=== PATIENT | male | born 1945 | race Caucasian/White ===

== ENCOUNTER 2017-03-15 09:17 | Inpatient (IN) | payer OTHER, MEDICARE ==
[~2017-03-15] VITALS: Ht 182.9 cm; Wt 121.6 kg
[~2017-03-15 09:17] MED LIST: ANTIVERT 25MG #1 PAC PO; AVAPRO 150MG150 MG PO; CRESTOR 10MG10 MG PO; CRESTOR40 M1 PO; DILTIAZEM HCL120 M2 PO; HYDRODIURIL 2525 MG PO; NOVOLOG MI300 UNITS/; PANTOPRAZOLE SO40 MG PO; PERCOCET 325 MG1 TA2 PO; SYNTHROID0.175 MG PO; VICTOZA6 MG/ML SC; ZOFRAN4 M1 SL; ZYRTEC ALLERGY10 MG PO
--- NOTE | 2017-03-15 09:36 | ED AMS/SEIZURE/WEAK/DIZZY ---
History of Present Illness General Chief Complaint: General Adult Stated Complaint: BIBA GEN WEAKNESS Source: patient, family Exam Limitations: no limitations Vital Signs & Intake/Output Vital Signs & Intake/Output Vital Signs Date Time Temp Pulse Resp B/P B/P Pulse O2 O2 Flow FiO2 Mean Ox Delivery Rate 03/15 1447 97.2 77 14 166/78 96 Room Air 03/15 0930 Room Air 03/15 0922 98.1 80 12 181/87 98 Room Air Allergies Coded Allergies: Penicillins (Severe, ANAPHYLAXIS 04/10/15) Reconcile Medications Aspirin (Ecotrin*) 81 MG TABLET.DR 1 TAB PO DAILY HEART/BLOOD (Reported) Azilsartan Med/Chlorthalidone (Edarbyclor 40-25 MG Tablet) 40 MG-25 MG TABLET 1 TAB PO DAILY BP (Reported) Diltiazem HCl (Diltiazem 24HR ER) 240 MG CAP.ER.24H 1 CAP PO DAILY HEART/BP ( Reported) Duloxetine HCl (Cymbalta) 60 MG CAPSULE.DR 1 CAP PO DAILY MENTAL HEALTH ( Reported) Ibuprofen 800 MG TABLET 1 TAB PO PRN PAIN/INFLAMMATION (Reported) Insulin NPL/Insulin Lispro (Humalog Mix 75-25 Kwikpen) 100 UNIT/ML (75-25) INSULN.PEN DM (Reported) Levothyroxine Sodium (Synthroid) 112 MCG TABLET 2 TAB PO DAILY THYROID ( Reported) Methadone HCl 5 MG/5 ML SOLUTION 105 MG PO DAILY CHRONIC PAIN (Reported) Naproxen Sodium (Aleve) 220 MG CAPSULE 1 CAP PO PRN PAIN/INFLAMMATION ( Reported) Pantoprazole Sodium 40 MG TABLET.DR 1 TAB PO DAILY GI (Reported) Paroxetine HCl 20 MG TABLET 1.5 TAB PO DAILY MENTAL HEALTH (Reported) Pravastatin Sodium 40 MG TABLET 1 TAB PO QPM CHOLESTEROL (Reported) Triage Note: 71 YEAR OLD MALE TO ER VIA AMBULANCE FROM HIS HOME WITH COMPLAINTS OF AMS , FEELING LOOPY FOR THE PAST 2 DAYS. ON ARRVAL PT ALERT AND ORIENTED , COMPLAINS OF JUST FEELING WEAK, DENIES N/V/D OR FEVERS, PT FS 232, ON EMS ARRIVAL PT O2 SAT 93 % ON RA, WAS PLACED ON 2L VIA NC FOR COMFORT AND O2 SAT 97 %. Triage Nurses Notes Reviewed? yes Onset: Gradual Duration: day(s): Timing: recent history Injury Environment: home Severity: moderate HPI: 71YO male with hx of DM, HTN BIBA to ED complaining of feeling "loopy"/ confused at home for the past 2 days. Patient states that symptoms started 2 days ago, he was feeling nauseous and ill. Patient was also having difficulty speaking, but visibly could not get the words out, was taking longer to think and felt his focus was off. Patient also complaining of generalized weakness. reports that patient has been taking his Synthroid however has been refusing to take other medications. Patient has been eating and drinking however he has not eaten anything this morning. Patient does admit to intermittent dizziness and presyncope. Patient denies chest pain, abdominal pain, dyspnea, vomiting, diarrhea. (Isabella Ross) Past History Travel History Traveled to [place] past 21 day No Medical History Any Pertinent Medical History? 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 No (Isabella Ross) Review of Systems Review of Systems Constitutional: Reports: see HPI. EENTM: Reports: no symptoms. Respiratory: Reports: no symptoms. Cardiovascular: Reports: no symptoms. GI: Reports: see HPI. Genitourinary: Reports: no symptoms. Musculoskeletal: Reports: no symptoms. Skin: Reports: no symptoms. Neurological/Psychological: Reports: see HPI. Hematologic/Endocrine: Reports: no symptoms. Immunologic/Allergic: Reports: no symptoms. All Other Systems: Reviewed and Negative (Isabella Ross) Physical Exam Physical Exam General Appearance: well developed/nourished, no apparent distress, alert, awake Head: atraumatic, normal appearance Eyes: Bilateral: normal appearance, PERRL, EOMI. 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 Yes CVA/TIA Diagnosis No Sepsis Present: No Sepsis Focused Exam Completed? No (Birgit SCHWARTZ,Isabella Chu) Progress Differential Diagnosis: arrythmia, alcohol intoxication, anemia, benign positional vertigo, CVA/stroke, dehydration, drug intoxication, encephalitis, electrolyte imbalance, hypoglycemia, hypoxia, intracranial Hem., intracranial mass/tumor, pneumonia, sepsis, UTI/pyelo Plan of Care: Orders Procedure Date/time Status Regular Diet 03/15 D Active Patient Data 03/15 1510 Active AMMONIA 03/15 1305 Complete RAPID VIRAL INFLUENZA A 03/15 1131 Complete MAGNESIUM 03/15 1030 Complete URINE DRUG SCREEN FOR ER ONLY 03/15 0936 Complete URINALYSIS 03/15 0936 Complete TROPONIN LEVEL 03/15 0936 Complete LACTIC ACID 03/15 0936 Complete COMPREHENSIVE METABOLIC PANEL 03/15 0936 Complete CBC WITHOUT DIFFERENTIAL 03/15 0936 Complete EKG 03/15 0936 Active Laboratory Tests 03/15/17 1312: Ammonia < 9 L 03/15/17 1236: Lactic Acid Cancelled 03/15/17 1037: Urine Opiates Screen < 100.00, Methadone Screen > 735 H, Barbiturate Screen < 60, Ur Phencyclidine Scrn 7.80, Amphetamines Screen < 100, U Benzodiazepines Scrn < 85, Urine Cocaine Screen < 50, Urine Cannabis Screen < 5.00, Urine Color YEL, Urine Clarity CLEAR, Urine pH 6.0, Ur Specific [place] >= 1.030, Urine Protein 100 H, Urine Ketones 15 H, Urine Nitrite NEG, Urine Bilirubin NEG, Urine Urobilinogen 2.0 H, Ur Leukocyte Esterase NEG, Ur Microscopic SEDIMENT EXAMINED, Urine RBC 3-5, Urine WBC 1-3 H, Ur Epithelial Cells FEW, Urine Mucus FEW, Urine Hemoglobin MOD H, Urine Glucose NEG 03/15/17 1030: Anion Gap 14, Estimated GFR > 60, BUN/Creatinine Ratio 21.0, Glucose 274 H, Lactic Acid 1.3, Calcium 8.2 L, Magnesium 1.7, Total Bilirubin 1.0, AST 120 H, ALT 176 H, Alkaline Phosphatase 163 H, Troponin I 0.06, Total Protein 7.2, Albumin 4.0, Globulin 3.2, Albumin/Globulin Ratio 1.3 03/15/17 0951: Magnesium Cancelled 03/15/17 0936: CBC w Diff NO MAN DIFF REQ, RBC 4.70, MCV 90.5, MCH 30.4, MCHC 33.6, RDW 13.2, MPV 8.3, Gran % 78.7 H, Lymphocytes % 10.2 L, Monocytes % 10.7 H, Eosinophils % 0.1, Basophils % 0.3, Absolute Granulocytes 5.0, Absolute Lymphocytes 0.6 L, Absolute Monocytes 0.7 H, Absolute Eosinophils 0, Absolute Basophils 0 Microbiology 03/15 1140 NASOPHARYN: Influenza Virus A & B Rapid Smear - COMP Patient's brought in his home methadone dose. Bottle read "give dose on 03/15". Patient given his home methadone dose here in the emergency department. Patient has elevated liver enzymes compared to prior labs, will obtain an ammonia level. Ammonia levels within normal limits. Patient is requiring assistance here in the emergency room for ambulation, has unsteady gait with ambulation. Patient was seen and evaluated by Dr. Fernandez. Patient has memory deficit, cannot recall that he had CT scan and chest x-ray performed today in the ER. Family feel that the patient's mental status is changed from his baseline. This patient is not safe to go home at this time. Discussed this patient with Dr. Gupta regarding EKG changes (inverted p waves) . He recommends cardiology consult tomorrow with Dr. Garrison. SPoke with hospitalist, . Patient to be admitted regarding his delerium, EKG changes, and gait instability. The patient's family agree with this plan. Discussed this patient with case management. Diagnostic Imaging: Viewed by Me: Radiology Read, CT Scan. Discussed w/RAD: Radiology Read, CT Scan. Radiology Impression: PATIENT: MIGUEL ANGEL CARRERA PRESENT AGE: 71 PATIENT ACCOUNT NO: [id number] : 46 LOCATION: [facility] ORDERING PHYSICIAN: Isabella SCHWARTZ SERVICE DATE: 03/15/17 EXAM TYPE: CAT - CT HEAD WO IV CONTRAST EXAMINATION: CT HEAD WITHOUT CONTRAST CLINICAL INFORMATION: Altered mental status. Confusion. COMPARISON: 06/13/15. TECHNIQUE: Contiguous axial imaging was performed from the skull base to vertex without intravenous administration of contrast. DLP: 618.71 mGy-cm FINDINGS: There is stable appearance of mild diffuse cerebral atrophy with prominence of the lateral ventricles and cortical sulci. There is no evidence of acute intracranial hemorrhage or territorial infarction. No abnormal mass effect or midline shift is seen. Allison to white matter differentiation is well preserved. No extra-axial fluid collections are identified. The ventricles are normal in size. There is no abnormal attenuation within the brain parenchyma. The osseous structures and soft tissues are normal. The mastoid air cells and visualized portions of the paranasal sinuses are well aerated. IMPRESSION: No acute intracranial pathology. DICTATED BY: Ayde Talbot MD DATE/TIME DICTATED:05/27 DEMOLITION SPECIALIST:STEPHANY DATE/TIME TRANSCRIBED:03/15/171054 CONFIDENTIAL, DO NOT COPY WITHOUT APPROPRIATE AUTHORIZATION. <Electronically signed in Other Vendor System> SIGNED BY: Ayde Talbot MD 03/15/17 1103 CXR Impression: PATIENT: MIGUEL ANGEL CARRERA PRESENT AGE: 71 PATIENT ACCOUNT NO: [id number] : 46 LOCATION: [facility] ORDERING PHYSICIAN: Isabella SCHWARTZ SERVICE DATE: 03/15/17 EXAM TYPE: RAD - XRY-CHEST XRAY, TWO VIEWS EXAMINATION: CR CHEST CLINICAL INFORMATION: Acute mental status change. Weakness. Hypoxia. Rule out pneumonia. COMPARISON: Chest x-ray dated . CT scan of the chest dated 08/23/2014. TECHNIQUE: 2 views of the chest were obtained. FINDINGS: The cardiomediastinal silhouette is within normal limits in size. Ectasia and tortuosity of the aorta and great vessels is again seen. Asymmetric elevation of the right hemidiaphragm is again noted without focal pulmonary process seen. No consolidation, effusion or pneumothorax is noted. Posterior spinal stimulator wires are partially included. Osteopenia, mild loss in height of lower thoracic vertebral bodies and and multilevel moderate vertebral spurring in the lower thoracic spine again seen. IMPRESSION: 1. Chronic elevation of right hemidiaphragm, unchanged. 2. No acute cardiopulmonary process seen. DICTATED BY: Suzette Claudio MD DATE/TIME DICTATED:03/15/171113 DEMOLITION SPECIALIST:STEPHANY DATE/TIME TRANSCRIBED:1113 CONFIDENTIAL, DO NOT COPY WITHOUT APPROPRIATE AUTHORIZATION. < Electronically signed in Other Vendor System> SIGNED BY: Suzette Claudio MD 03/15/17 1121 Initial ED EKG: ectopic atrial rhythm, LAFB, LVH Prior EKG: changed (01/30/15 - p wave changes) (Isabella Ross) Departure Departure Disposition: STILL A PATIENT Condition: Stable Clinical Impression Primary Impression: Acute delirium Secondary Impressions: Acute electrocardiogram changes Referrals: Rosas Felder MD (PCP/Family) Departure Forms: Customer Survey General Discharge Information Admission Note Spoke With: Leno Morris MD Documentation of Exam: Documentation of any treatments & extenuating circumstances including Concerns Regarding Discharge (functional status, medication knowledge or non-compliance, living conditions, etc.) that warrant an admission rather than observation: [ Acute delirium and confusion, EKG changes requiring cardiology consults, gait instability requiring physical therapy consult, premature discharge would be medically unsafe] (Isabella Ross) PA/OPHTHALMIC SURGEON Co-Sign Statement Statement: ED Attending supervision documentation- x I saw and evaluated the patient. I have also reviewed all the pertinent lab results and diagnostic results. I agree with the findings and the plan of care as documented in the PA's/OPHTHALMIC SURGEON's documentation. Increasing confusion memory loss new p wave changes chronic pain syndrome [] I have reviewed the ED Record and agree with the PA's/OPHTHALMIC SURGEON's documentation. [] Additions or exceptions (if any) to the PAs/OPHTHALMIC SURGEON's note and plan are summarized below: [] (Jim LOZANO,Simón)
[2017-03-15 10:47] LABS: ABSOLUTE BASOPHIL COUNT 0 /CUMM (0.0-0.2); ABSOLUTE EOSINOPHIL COUNT 0 /CUMM (0.0-0.7); ABSOLUTE LYMPH COUNT 0.6 /CUMM (1.2-3.4); ABSOLUTE MONOCYTE COUNT 0.7 /CUMM (0.10-0.60); BASOPHIL % 0.3 % (0.0-2.0); EOSINOPHIL % 0.1 % (0-5); GRANULOCYTE % 78.7 % (42.2-75.2); HEMATOCRIT 42.5 % (42-52); MEAN CORPUSCULAR HGB 30.4 PG (27.0-31.0); MEAN CORPUSCULAR HGB CONC 33.6 G/DL (33.0-37.0); MEAN CORPUSCULAR VOLUME 90.5 FL (80.0-94.0); MEAN PLATELET VOLUME 8.3 FL (7.4-10.4); PLATELET COUNT 161 /CUMM (130-400); RBC DISTRIBUTION WIDTH 13.2 % (11.5-14.5); WHITE BLOOD CELL COUNT 6.3 /CUMM (4.8-10.8)
--- NOTE | 2017-03-15 11:03 | CT SCAN REPORT ---
EXAMINATION: CT HEAD WITHOUT CONTRAST CLINICAL INFORMATION: Altered mental status. Confusion. COMPARISON: 06/13/15. TECHNIQUE: Contiguous axial imaging was performed from the skull base to vertex without intravenous administration of contrast. DLP: 618.71 mGy-cm FINDINGS: There is stable appearance of mild diffuse cerebral atrophy with prominence of the lateral ventricles and cortical sulci. There is no evidence of acute intracranial hemorrhage or territorial infarction. No abnormal mass effect or midline shift is seen. Allison to white matter differentiation is well preserved. No extra-axial fluid collections are identified. The ventricles are normal in size. There is no abnormal attenuation within the brain parenchyma. The osseous structures and soft tissues are normal. The mastoid air cells and visualized portions of the paranasal sinuses are well aerated. IMPRESSION: No acute intracranial pathology.
--- NOTE | 2017-03-15 11:21 | RADIOLOGY REPORT ---
EXAMINATION: CR CHEST CLINICAL INFORMATION: Acute mental status change. Weakness. Hypoxia. Rule out pneumonia. COMPARISON: Chest x-ray dated 01/30/2015. CT scan of the chest dated 08/23/2014. TECHNIQUE: 2 views of the chest were obtained. FINDINGS: The cardiomediastinal silhouette is within normal limits in size. Ectasia and tortuosity of the aorta and great vessels is again seen. Asymmetric elevation of the right hemidiaphragm is again noted without focal pulmonary process seen. No consolidation, effusion or pneumothorax is noted. Posterior spinal stimulator wires are partially included. Osteopenia, mild loss in height of lower thoracic vertebral bodies and and multilevel moderate vertebral spurring in the lower thoracic spine again seen. IMPRESSION: 1. Chronic elevation of right hemidiaphragm, unchanged. 2. No acute cardiopulmonary process seen.
[2017-03-15] MEDS ORDERED: DILTIAZEM 24HR240 MG PO (12:34)
[2017-03-15] MEDS ORDERED: CYMBALTA60 M1 PO (12:34)
[2017-03-15] MEDS ORDERED: EDARBYCLOR 40-1 EAC1 PO (12:35)
[2017-03-15] MEDS ORDERED: HUMALOG MI100 UNIT/3 SC (12:37)
[2017-03-15] MEDS ORDERED: SYNTHROID112 MCG PO (12:38)
[2017-03-15] MEDS ORDERED: PAROXETINE HCL20 M1 PO (12:38)
[2017-03-15] MEDS ORDERED: ASPIRIN EC81 M1 PO (12:38)
[2017-03-15] MEDS ORDERED: PRAVASTATIN SOD40 M2 PO (12:39)
[2017-03-15] MEDS ORDERED: PANTOPRAZOLE SO40 M1 PO (12:39)
[2017-03-15] MEDS ORDERED: METHADONE H5 MG/5 M2 PO (12:40)
[2017-03-15] MEDS ORDERED: ALEVE220 M1 PO (12:41)
[2017-03-15] MEDS ORDERED: IBUPROFEN800 M1 PO (12:41)
--- NOTE | 2017-03-15 15:05 | History & Physical ---
Mary Carmen Awan 03/15/17 1505: General Information and HPI MD Statement: I have seen and personally examined MIGUEL ANGEL CARRERA and documented this H&P. The patient is a 71 year old M who presented with a patient stated chief complaint of [AMS]. Exam Limitations: unable to give history, confusion, poor historian History of Present Illness: This is a 71-year-old gentleman with past medical history significant for hypertension, diabetes, hyperlipidemia, and hypothyroidism, chronic low back pain (has there was stimulator), history of opiate abuse on methadone program. Was brought in by his due to sudden onset altered mental status since Thursday. According to patient's , patient was restarted on paroxetine about 2 years ago for his depression and opiate dependence. Ever since patient has been expressing on and off very brief confusional periods. During which patient is not able to continue the conversation and his line of thinking. These episodes has been a stable for the past 2 years. His primary care attending Dr. Felder obtained a CT scan of the head as an outpatient which ruled out any organic cause. About 2 weeks ago patient was seen by Dr. Akbar for geriatric consult , during which Dr. Akbar ruled out dementia and is started tapering the patient's of paroxetine (decreased to 30 mg per day) while starting him on Cymbalta. About a week ago, Cymbalta was increased to 60 mg a day and paroxetine was kept at 30 mg till the next appointment on April 06. According to for the past 2 weeks in parallel with the changes, patient's blood pressure that has been controlled for a long time suddenly out of control, he ended up seeing his game designer/creative director twice for the past 2 weeks and had 2 changes in his antihypertensive medications. Patient became progressively more rigid, confused and less active. These episodes very frequently noticed to be accompanied by intense sweating, loss of appetite And according to unpredictable bilateral upper extremities jerking movements with an occasional jerky movements in his jaw and face. According to patient did not have any symptoms of URI, GI, , chest pain, palpitation, shortness of breath. He Has been compliant with his medication. Allergies/Medications Home Med list Aspirin (Ecotrin*) 81 MG TABLET.DR 1 TAB PO DAILY HEART/BLOOD (Reported) Azilsartan Med/Chlorthalidone (Edarbyclor 40-25 MG Tablet) 40 MG-25 MG TABLET 1 TAB PO DAILY BP (Reported) Diltiazem HCl (Diltiazem 24HR ER) 240 MG CAP.ER.24H 1 CAP PO DAILY HEART/BP ( Reported) Duloxetine HCl (Cymbalta) 60 MG CAPSULE.DR 1 CAP PO DAILY MENTAL HEALTH ( Reported) Ibuprofen 800 MG TABLET 1 TAB PO PRN PAIN/INFLAMMATION (Reported) Insulin NPL/Insulin Lispro (Humalog Mix 75-25 Kwikpen) 100 UNIT/ML (75-25) INSULN.PEN DM (Reported) Levothyroxine Sodium (Synthroid) 112 MCG TABLET 2 TAB PO DAILY THYROID ( Reported) Methadone HCl 5 MG/5 ML SOLUTION 105 MG PO DAILY CHRONIC PAIN (Reported) Naproxen Sodium (Aleve) 220 MG CAPSULE 1 CAP PO PRN PAIN/INFLAMMATION ( Reported) Pantoprazole Sodium 40 MG TABLET.DR 1 TAB PO DAILY GI (Reported) Paroxetine HCl 20 MG TABLET 1.5 TAB PO DAILY MENTAL HEALTH (Reported) Pravastatin Sodium 40 MG TABLET 1 TAB PO QPM CHOLESTEROL (Reported) Compliance With Home Meds: GOOD Past History Travel History Traveled to [place] past 21 day No Medical History Neurological: NONE EENT: cataracts Cardiovascular: hypertension, hyperlipidemia Respiratory: NONE Gastrointestinal: NONE Hepatic: NONE Renal: NONE Musculoskeletal: chronic back pain, osteoarthritis, LUMBAR FXS Psychiatric: NONE Endocrine: diabetes, hypothyroidism Blood Disorders: NONE Cancer(s): NONE UNDERGROUND UTILITY LOCATOR/Reproductive: NONE Surgical History Surgical History: appendectomy, cholecystectomy Past Family/Social History Psychosocial History Where do you live? Home ETOH Use: denies use Illicit Drug Use: denies illicit drug use Functional Ability ADLs Independent: dressing, eating, toileting, bathing. Ambulation: independent IADLs Independent: shopping, housework, finances, food prep, telephone, transportation , medication admin. Review of Systems Review of Systems Constitutional: Reports: see HPI. Cardiovascular: Reports: no symptoms. Respiratory: Reports: no symptoms. GI: Reports: no symptoms. Musculoskeletal: Reports: see HPI. Neurological/Psychological: Reports: confusion, tremors. All Other Systems: Reviewed and Negative Exam & Diagnostic Data Last 24 Hrs of Vital Signs/I&O Vital Signs Date Time Temp Pulse Resp B/P B/P Pulse O2 O2 Flow FiO2 Mean Ox Delivery Rate 03/15 1634 97.0 78 18 162/80 97 Room Air 03/15 1447 97.2 77 14 166/78 96 Room Air 03/15 0930 Room Air 03/15 0922 98.1 80 12 181/87 98 Room Air Intake & Output 03/15 1600 03/15 0800 03/15 0000 Intake Total Output Total Balance Patient 270 lb Weight Physical Exam General Appearance Cooperative, No Acute Distress, alert and orineted x3 Skin moist and warm HEENT MM is dry, one jerky movement of his jaw Neck Supple, No JVD Lymphatic Axillary nl, Cervical nl Cardiovascular Normal S1, Normal S2, No Murmurs Lungs Clear to Auscultation Abdomen Soft Neurological Cranial Nerves 3-12 NL, Reflexes 2+, finger to nose: slowening , rigidity in passive movement , reflexes: +2 x4 extremirty, coarse tremor of the hands; intermittent Extremities No Edema Assessment/Plan Assessment: This is a 71-year-old with past medical history significant for opiate abuse currently on methadone, depression currently on 2 SSRIs, who brought in to the emergency room for altered mental status. Additional findings: EKG: Nonspecific ST-T segment change Initial troponin= 0.06>>> Blood work within normal limits; BEP: Sodium 131 U tox positive for methadone UA glucosuria Chest x-ray: Opinion no acute cardiopulmonary pathology Head CT no acute pathology Discussion: This patient was restarted on Cymbalta with the aim to taper him off paroxetine. During this 2w transition patient's blood pressure, that has been usually controlled, suddenly become uncontrolled, patient developed tremor/jerk upper and facial movement disorders, increasing muscle tone, and increased sweating, agitation and confusion. List of differential diagnosis #1 nonspecific T wave change rule out ACS #2 possibility of serotonin syndrome #3 opiates dependence Plan * Admit to telemetry for continuous heart monitoring * trending troponin and EKG at 4 PM rule out ACS * Encourage increased by mouth intake * Fall precaution * Continue his antihypertensive medication diltiazem and chlorthalidone, and Cozaar * Insulin Humalog/lispro 75/25 30 units BID * Insulin lispro 3 times a day before meals and fingersticks 3 times a day before meals * Psych consult in the a.m. * Continue his Synthroid * Nystatin powder for rash fc pain As Ranked By This Provider Problem List: 1. Acute electrocardiogram changes 2. Generalized anxiety disorder 3. Altered mental status Core Measures/Misc (9/17) Acute Coronary Syndrome ACS Diagnosis: No Congestive Heart Failure Congestive Heart Failure Diagnosis No Cerebrovascular Accident CVA/TIA Diagnosis: No VTE (View Protocol) VTE Risk Factors Acute Medical Illness No VTE Pharm Prophylaxis d/t NA PharmProphylax ordered Sepsis (View protocol) Sepsis Present: No Resident Review Statement Resident Statement: examined this patient, discussed with commissioner of internal revenue, agreed with commissioner of internal revenue, discussed with family, reviewed EMR data (avail), discussed with nursing , discussed with case mgmt, reviewed images, amended to note Leno Morris MD 03/15/17 1736: General Information and HPI Allergies/Medications Allergies: Coded Allergies: Penicillins (Severe, ANAPHYLAXIS 04/10/15) Attending MD Review Statement Attending Statement Attending MD Statement: examined this patient, discuss w/resident/PA/RELIEF COOK, agreed w/resident/PA/RELIEF COOK, discussed with family, reviewed EMR data (avail), discussed with nursing, amended to note Attending Assessment/Plan: Patient is a 71-year-old male with history significant for hypothyroidism, chronic back pain, opioid abuse on the methadone program and depression. Brought in by family for evaluation due to confusion which started 2 days prior to presentation. The day prior to that increase the dose of Cymbalta with her just restarted a week prior. Apparently due to concerns of changes in mood his medication regimen was been adjusted. Please see the above notes by the resident for further details. reports the Cymbalta dose was increased on . On Thursday he developed confusion with twitching of his upper extremities. She try to bring him to the ER for evaluation yesterday but he declined. He finally agreed to come for evaluation. Neuro imaging shows no acute pathology. He is afebrile hemodynamically stable. He has no electrolyte abnormalities. Incidentally in the emergency room EKG showed diffuse flattening of his T waves. Patient denies any cardiac complaints. Troponin level was 0.06. He was referred to the inpatient service for further management. By the time I evaluated in the emergency room I found him alert and oriented 3 conversant appropriately. does feel that his mental status appears to have improved. On examination he has no focal deficits. I do not find his muscle tone reviewed. He was not febrile. Laboratory data did reveal mild rhabdomyolysis. He does have significant transaminitis. And hyponatremia. Problems: 1. Altered mental status; likely medication induced. Possible serotonin syndrome. 2. Abnormal EKG 3. Transaminitis 4. Rhabdomyolys 5. Hyponatremia 6. Diabetes mellitus. Plan: -Admitted to the inpatient General medical service. -On account of his abnormal EKG he will be monitored on the telemetry unit. Will obtain third set of cardiac enzymes and consult with the cardiology service. He is currently asymptomatic denying any chest pain or shortness of breath. Denies any palpitations. Follow-up with his game designer/creative director service for comparison with any previous workup. -His altered mentation appears to be secondary to changes in his medication particularly the increased dose of Cymbalta done a day prior to his confusion. This medication was recently started a week prior. Recommend discontinuation of Cymbalta monitor patient closely. -Check TSH level to determine if there is any need for changes to his thyroid regimen. -His mild rhabdomyolysis could be secondary to serotonin syndrome from his medications. Hydrate with normal saline at 100 cc an hour for 1 L. Repeat CPK level in the morning. -Obtain right upper quadrant sonogram. Check viral hepatitis panel.
--- NOTE | 2017-03-15 17:36 | Admission Certification ---
Admission Certification Certification Statement - As attending physician, I certify that at the time of - admission, based on clinical presentation, severity of - symptoms, need for further diagnostic testing and - therapeutic interventions, and risk of adverse outcomes - without in-hospital treatment, in my clinical assessment, - this patient requires an acute hospital stay for a minimum - of two nights or longer. I have also considered psychsocial - factors such as support system, advanced age, financial - issues, cognitive issues, and failed out-patient treatments, - past re-admission history, safety of patient, and lack of - compliance as applicable. Specific rationale supporting this admission is: Patient requires further evaluation of his altered mental status. He will require adjustment of his routine medications.
[2017-03-15 23:00] VITALS: BP 160/80
[2017-03-16 06:57] VITALS: BP 182/78
--- NOTE | 2017-03-16 07:31 | PN- Housestaff ---
See Addendum Subjective Follow-up For: AMS 2/2 to medications, serotonin syndrome. Abnormal EKG Transaminitis Opioid dependence Tele-Events Since Last Visit: NSR: 60-85 Subjective: Patient was seen and examined today. States he feels "mixed." States he has been confused over the past 1 week. States he is not happy with how he sounds or how his throat feels. Denies pain, cough, congestion, fever, chills, tremors, n/v/c/ d, abdominal pain, hematuria/dysuria. No acute events overnight. Review of Systems Constitutional: Reports: no symptoms. Cardiovascular: Reports: no symptoms. Respiratory: Reports: no symptoms. Gastrointestinal: Reports: no symptoms. Genitourinary: Reports: no symptoms. Musculoskeletal: Reports: no symptoms. Neurological/Psychological: Reports: confusion. Hematologic/Endocrine: Reports: no symptoms. Objective Last 24 Hrs of Vital Signs/I&O Vital Signs Date Time Temp Pulse Resp B/P B/P Pulse O2 O2 Flow FiO2 Mean Ox Delivery Rate 03/16 0657 97.7 85 20 182/78 93 Room Air 03/15 2300 99.3 87 20 160/80 93 Room Air 03/15 2010 99.5 78 16 154/73 94 Room Air / 1808 97.8 72 18 144/78 97 Room Air / 1705 164/78 02/ 1634 97.0 78 18 162/80 97 Room Air / 1447 97.2 77 14 166/78 96 Room Air 03/15 0930 Room Air 03/15 0922 98.1 80 12 181/87 98 Room Air Intake & Output 03/16 0800 03/16 0000 03/15 1600 Intake Total 0 Output Total 240 Balance -240 Intake, Oral 0 Output, Urine 240 Patient 268 lb 270 lb Weight Weight Reported by Patient Measurement Method Physical Exam General Appearance: Alert, Cooperative, No Acute Distress Skin Temp/Moisture Exam: Warm/Dry HEENT: Atraumatic, PERRLA, EOMI, Mucous Membr. moist/pink Lymphatic: Cervical nl Cardiovascular: Regular Rate, Normal S1, Normal S2 Lungs: Clear to Auscultation, Normal Air Movement Abdomen: Normal Bowel Sounds, Soft, No Tenderness Neurological: Normal Speech, Strength at 5/5 X4 Ext, Sensation Intact, Cranial Nerves 3-12 NL, Reflexes 2+, hand tremor, rigidity to passive movement Extremities: No Clubbing, No Cyanosis, No Edema, Normal Pulses, No Tenderness/ Swelling Current Medications: Current Medications Sig/Radha Start time Last Medication Dose Route Stop Time Status Admin Aspirin Buffered 81 MG DAILY 03/15 1615 AC PO Chlorthalidone 25 MG DAILY 03/15 1616 AC PO Diltiazem HCl 240 MG DAILY 03/16 1000 AC PO Heparin Sodium 0 .STK-MED ONE 03/15 2045 DC (Porcine) .ROUTE Heparin Sodium 5,000 UNIT Q8 03/15 1701 AC 03/16 (Porcine) SC 0652 Insulin Aspart 0 TIDAC 03/15 1700 AC 03/15 SC 1946 Insulin Aspart Prota 30 UNIT 0800,1700 03/16 0800 AC 70%/Aspart 30% SC Levothyroxine Sodium 0.224 MG DAILY AC 03/16 0700 AC 03/16 PO 0655 Losartan Potassium 25 MG DAILY 03/15 1624 AC PO Nystatin 1 DRAKE BID PRN 03/15 1630 AC 03/15 TOP 2319 Paroxetine HCl 30 MG DAILY 03/16 1000 AC PO Pravastatin Sodium 20 MG 1700 03/15 1700 DC PO Sodium Chloride 1,000 ML BOLUS ONE 03/15 1230 DC 03/15 IV 03/15 1329 1230 Last 24 Hrs of Lab/Wero Results Last 24 Hrs of Labs/Mics: Laboratory Tests 03/16/17 0704: Sodium Pending, Potassium Pending, Chloride Pending, Carbon Dioxide Pending, Anion Gap Pending, BUN Pending, Creatinine Pending, BUN/Creatinine Ratio Pending , Creatine Kinase Pending, CBC w Diff Pending, WBC Pending, RBC Pending, Hgb Pending, Hct Pending, MCV Pending, MCH Pending, MCHC Pending, RDW Pending, Plt Count Pending, MPV Pending, Hepatitis A IgM Ab Pending, Hep Bs Antigen Pending, Hep B Core IgM Ab Conf Pending, Hepatitis C Antibody Pending 03/15/17 2325: Troponin I 0.06 03/15/17 1645: Troponin I 0.06, TSH 0.405 03/15/17 1312: Ammonia < 9 L 03/15/17 1236: Lactic Acid Cancelled 03/15/17 1037: Urine Opiates Screen < 100.00, Methadone Screen > 735 H, Barbiturate Screen < 60, Ur Phencyclidine Scrn 7.80, Amphetamines Screen < 100, U Benzodiazepines Scrn < 85, Urine Cocaine Screen < 50, Urine Cannabis Screen < 5.00, Urine Color YEL, Urine Clarity CLEAR, Urine pH 6.0, Ur Specific [place] >= 1.030, Urine Protein 100 H, Urine Ketones 15 H, Urine Nitrite NEG, Urine Bilirubin NEG, Urine Urobilinogen 2.0 H, Ur Leukocyte Esterase NEG, Ur Microscopic SEDIMENT EXAMINED, Urine RBC 3-5, Urine WBC 1-3 H, Ur Epithelial Cells FEW, Urine Mucus FEW, Urine Hemoglobin MOD H, Urine Glucose NEG 03/15/17 1030: Anion Gap 14, Estimated GFR > 60, BUN/Creatinine Ratio 21.0, Glucose 274 H, Lactic Acid 1.3, Calcium 8.2 L, Magnesium 1.7, Total Bilirubin 1.0, AST 120 H, ALT 176 H, Alkaline Phosphatase 163 H, Creatine Kinase 497 H, Troponin I 0.06 , Total Protein 7.2, Albumin 4.0, Globulin 3.2, Albumin/Globulin Ratio 1.3 03/15/17 0951: Magnesium Cancelled 03/15/17 0936: CBC w Diff NO MAN DIFF REQ, RBC 4.70, MCV 90.5, MCH 30.4, MCHC 33.6, RDW 13.2, MPV 8.3, Gran % 78.7 H, Lymphocytes % 10.2 L, Monocytes % 10.7 H, Eosinophils % 0.1, Basophils % 0.3, Absolute Granulocytes 5.0, Absolute Lymphocytes 0.6 L, Absolute Monocytes 0.7 H, Absolute Eosinophils 0, Absolute Basophils 0 Microbiology 03/15 1140 NASOPHARYN: Influenza Virus A & B Rapid Smear - COMP Assessment/Plan Assessment: Patient is a 71-year-old male with past medical history of hypertension, diabetes, hyperlipidemia, hypothyroidism, chronic low back pain with neurostimulator, history of opiate abuse currently in a methadone program presenting this admission with a one-week history of confusion, sweating, muscle rigidity, upper extremity jerking movements and tremor after being started on Cymbalta 60 mg daily. Patient on admission was found to have elevated blood pressure, labs significant for sodium of 131, CPK of 497, EKG showing EKG abnormalities with troponins of 0.06. Chest x-ray and head CT were negative for acute pathology. Patient had elevated transaminases. U tox was positive for methadone. Patient was worked up for possible causes of AMS including infectious etiologies , electrolyte abnormalities, toxic causes, and neurocardiac etiologies. Based on patient's presentation of muscle rigidity, sweating, tremor with the recent increase in cymbalta in conjunction with paxil, patient's symptoms are likely attributed to serotonin syndrome. Patient today remains confused with continued jerking movements which have improved. Patient's transaminases trended down and hepatitis panel was negative. Patient's sodium improved to 134 however CPK increased to 659. Patient was seen by cardiology today for abnormal EKGs. Patient was cleared by cardiology with no further intervention necessary. Patient is to continue his antihypertensive medications and aspirin. Pravastatin will be continued once patient's symptoms and LFTs have improved. Patient was seen and evaluated by neurology for AMS likely serotonin syndrome. Per neurology no further interventions are needed as patient's symptoms are improving. Psychiatry consulted. Verbally spoke to psychiatry. Will hold off on SSRIs at this time. Patient will be seen by psychiatry tomorrow. Patient has uncontrolled diabetes. Patient was seen by endocrinology with recommendations to start long acting insulin tonight and regular sliding scale. Patient is on methadone. The methadone clinic he attends was called to confirm his medication dosage. Patient filled the methadone on 03/12 and has enough medication until 03/18. Patient takes 105 mg methadone daily. Problems: 1. AMS, likely serotonin syndrome 2. Boderline ECG changes 3. Rhabdomyolysis 4. Transaminitis 5. Uncontrolled DM Plan: Patient admitted to telemetry Cardiology, Endocrinology, Neurology and Psychiatry on board. Appreciate Recommendations Cymbalta and Paxil held Continued aspirin Stop Novolog 70/30 Started Levemir 15 units twice a day Accuchecks TIDAC and qHS Novolog SS TIDAC and qHS Normal saline IV @ 75 cc/hr for hyponatremia and rhabdomyolysis Continue synthroid, losartan, diltiazem, chlorothalidone Continue methadone 105 mg daily Monitor Sodium, Creatinine, CPK and LFTs Diet: Diabetic diet Code: full code DVT PPx: Problem List: 1. Acute electrocardiogram changes 2. Altered mental status Pain Ratin Pain Location: n/a Pain Goal: Remain pain free Pain Plan: n/a Tomorrow's Labs & Rationales: bep, lfts, cpk
[2017-03-16 08:13] LABS: ABSOLUTE BASOPHIL COUNT 0 /CUMM (0.0-0.2); ABSOLUTE EOSINOPHIL COUNT 0 /CUMM (0.0-0.7); ABSOLUTE GRANULOCYTE CT 2.8 /CUMM (1.4-6.5); ABSOLUTE LYMPH COUNT 1.2 /CUMM (1.2-3.4); ABSOLUTE MONOCYTE COUNT 0.6 /CUMM (0.10-0.60); BASOPHIL % 0.3 % (0.0-2.0); EOSINOPHIL % 0.1 % (0-5); GRANULOCYTE % 61.5 % (42.2-75.2); HEMATOCRIT 41.3 % (42-52); MEAN CORPUSCULAR HGB 30.3 PG (27.0-31.0); MEAN CORPUSCULAR HGB CONC 33.7 G/DL (33.0-37.0); MEAN CORPUSCULAR VOLUME 89.9 FL (80.0-94.0); MEAN PLATELET VOLUME 8.1 FL (7.4-10.4); PLATELET COUNT 153 /CUMM (130-400); RBC DISTRIBUTION WIDTH 13.8 % (11.5-14.5); RED BLOOD CELL CT 4.59 /CUMM (4.70-6.10); WHITE BLOOD CELL COUNT 4.6 /CUMM (4.8-10.8)
--- NOTE | 2017-03-16 11:43 | Cons- Cardiology ---
General Information and HPI Consulting Request Date of Consult: 03/16/17 Requested By: Kwabena Baker MD Reason for Consult: Abnormal ECG Source of Information: patient, family, old records History of Present Illness: This is a 71-year-old male with a past medical history of hypertension, diabetes , coronary artery calcifications, chronic low back pain, and hypothyroidism who was admitted to [facility] following a recent change in mental status which he and his family treated to a recent change in his outpatient medications as he was been transitioned from Paxil to Cymbalta. He reported and no issues with chest pain, dyspnea, palpitations, or syncope. Denied any orthopnea or paroxysmal nocturnal dyspnea. Denied slurring of speech or focal visual deficits. Recently been seen in our office for blood pressure medication titration. On my interview with him this morning he reports improved mental status and continues to deny any chest pain, dyspnea, or palpitations. Cardiology was consulted due to a concern for an abnormal EKG on presentation. Allergies/Medications Allergies: Coded Allergies: Penicillins (Severe, ANAPHYLAXIS 04/10/15) Home Med List: Aspirin (Ecotrin*) 81 MG TABLET.DR 1 TAB PO DAILY HEART/BLOOD (Reported) Azilsartan Med/Chlorthalidone (Edarbyclor 40-25 MG Tablet) 40 MG-25 MG TABLET 1 TAB PO DAILY BP (Reported) Diltiazem HCl (Diltiazem 24HR ER) 240 MG CAP.ER.24H 1 CAP PO DAILY HEART/BP ( Reported) Duloxetine HCl (Cymbalta) 60 MG CAPSULE.DR 1 CAP PO DAILY MENTAL HEALTH ( Reported) Ibuprofen 800 MG TABLET 1 TAB PO PRN PAIN/INFLAMMATION (Reported) Insulin NPL/Insulin Lispro (Humalog Mix 75-25 Kwikpen) 100 UNIT/ML (75-25) INSULN.PEN DM (Reported) Levothyroxine Sodium (Synthroid) 112 MCG TABLET 2 TAB PO DAILY THYROID ( Reported) Methadone HCl 5 MG/5 ML SOLUTION 105 MG PO DAILY CHRONIC PAIN (Reported) Naproxen Sodium (Aleve) 220 MG CAPSULE 1 CAP PO PRN PAIN/INFLAMMATION ( Reported) Pantoprazole Sodium 40 MG TABLET.DR 1 TAB PO DAILY GI (Reported) Paroxetine HCl 20 MG TABLET 1.5 TAB PO DAILY MENTAL HEALTH (Reported) Pravastatin Sodium 40 MG TABLET 1 TAB PO QPM CHOLESTEROL (Reported) Current Medications: Current Medications Sig/Radha Start time Last Medication Dose Route Stop Time Status Admin Aspirin Buffered 81 MG DAILY 03/15 1615 AC 03/16 PO 1030 Chlorthalidone 25 MG DAILY 03/15 1616 AC 03/16 PO 1029 Diltiazem HCl 240 MG DAILY 03/16 1000 AC 03/16 PO 1030 Heparin Sodium 0 .STK-MED ONE 03/15 2045 DC (Porcine) .ROUTE Heparin Sodium 5,000 UNIT Q8 03/15 1701 AC 03/16 (Porcine) SC 0652 Insulin Aspart 0 TIDAC/HS 03/16 1700 AC SC Insulin Aspart 0 TIDAC 03/15 1700 DC 03/15 SC 1946 Insulin Aspart Prota 30 UNIT 0800,1700 03/16 0800 DC 03/16 70%/Aspart 30% SC 1030 Insulin Detemir 15 UNITS BID 03/16 2200 AC SC Levothyroxine Sodium 0.224 MG DAILY AC 03/16 0700 AC 03/16 PO 0655 Losartan Potassium 25 MG DAILY 03/15 1624 AC 03/16 PO 1029 Nystatin 1 DRAKE BID PRN 03/15 1630 AC 03/15 TOP 2319 Paroxetine HCl 30 MG DAILY 03/16 1000 DC 03/16 PO 1030 Pravastatin Sodium 20 MG 1700 03/15 1700 DC PO Sodium Chloride 1,000 ML ONCE ONE 03/16 0945 AC 03/16 IV 03/16 2304 1031 Sodium Chloride 1,000 ML BOLUS ONE 03/15 1230 DC 03/15 IV 03/15 1329 1230 Review of Systems Review of Systems: Review of systems as per HPI. The remainder of a 10 point review of systems was reviewed and was otherwise negative. 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 Home Smoking Status: Never Smoked ETOH Use: denies use Illicit Drug Use: denies illicit drug use Functional Ability ADLs Independent: dressing, eating, toileting, bathing. Ambulation: independent IADLs Independent: shopping, housework, finances, food prep, telephone, transportation , medication admin. Exam & Diagnostic Data Vital Signs and I&O Vital Signs Date Time Temp Pulse Resp B/P B/P Pulse O2 O2 Flow FiO2 Mean Ox Delivery Rate 03/16 1029 176/84 03/16 0657 97.7 85 20 182/78 93 Room Air 03/15 2300 99.3 87 20 160/80 93 Room Air 03/15 2010 99.5 78 16 154/73 94 Room Air 03/15 1808 97.8 72 18 144/78 97 Room Air 03/15 1705 164/78 03/15 1634 97.0 78 18 162/80 97 Room Air 03/15 1447 97.2 77 14 166/78 96 Room Air Intake & Output 03/16 1600 03/16 0800 03/16 0000 03/15 1600 03/15 0800 03/15 0000 Intake Total 100 0 Output Total 240 Balance 100 -240 Intake, Oral 100 0 Output, Urine 240 Patient 268 lb 270 lb Weight Weight Reported by Patient Measurement Method Physical Exam: General: no apparent distress. Alert. Eyes: No obvious scleral icterus. HEENT: No jugular venous distention or abnormal jugular venous pulsations. Cardiovascular: Normal intensity S1/S2. Regular Respiratory: Lungs clear to auscultation bilaterally. Abdomen: Soft, nontender with no guarding or rebound tenderness. Musculoskeletal: No clubbing or cyanosis noted; no edema Skin: Warm Lymph: No gross lymphadenopathy. Labs/Wero Results: Laboratory Tests 03/16 03/15 03/15 03/15 0704 2325 1645 1312 Chemistry Sodium (137 - 145 mmol/L) 134 L Potassium (3.5 - 5.1 mmol/L) 3.7 Chloride (98 - 107 mmol/L) 92 L Carbon Dioxide (22 - 30 mmol/L) 28 Anion Gap (5 - 16) 14 BUN (9 - 20 mg/dL) 25 H Creatinine (0.7 - 1.2 mg/dL) 1.2 Estimated GFR (>60 ml/min) 60 BUN/Creatinine Ratio (7 - 25 %) 20.8 Ammonia (9 - 30 umol/L) < 9 L Creatine Kinase (55 - 170 U/L) 659 H Troponin I (<0.11 ng/ml) 0.06 0.06 TSH (0.270 - 4.200 uIU/mL) 0.405 Hematology CBC w Diff NO MAN DIFF REQ WBC (4.8 - 10.8 /CUMM) 4.6 L RBC (4.70 - 6.10 /CUMM) 4.59 L Hgb (14.0 - 18.0 G/DL) 13.9 L Hct (42 - 52 %) 41.3 L MCV (80.0 - 94.0 FL) 89.9 MCH (27.0 - 31.0 PG) 30.3 MCHC (33.0 - 37.0 G/DL) 33.7 RDW (11.5 - 14.5 %) 13.8 Plt Count (130 - 400 /CUMM) 153 MPV (7.4 - 10.4 FL) 8.1 Gran % (42.2 - 75.2 %) 61.5 Lymphocytes % (20.5 - 51.1 %) 25.4 Monocytes % (1.7 - 9.3 %) 12.7 H Eosinophils % (0 - 5 %) 0.1 Basophils % (0.0 - 2.0 %) 0.3 Absolute Granulocytes (1.4 - 6.5 /CUMM) 2.8 Absolute Lymphocytes (1.2 - 3.4 /CUMM) 1.2 Absolute Monocytes (0.10 - 0.60 /CUMM) 0.6 Absolute Eosinophils (0.0 - 0.7 /CUMM) 0 Absolute Basophils (0.0 - 0.2 /CUMM) 0 Serology Hepatitis A IgM Ab (NONREACTIVE) NONREACTIVE Hep Bs Antigen (NONREACTIVE) NONREACTIVE Hep B Core IgM Ab Conf (NONREACTIVE) NONREACTIVE Hepatitis C Antibody (NONREACTIVE) NONREACTIVE 03/15 03/15 03/15 1236 1037 1030 Chemistry Sodium (137 - 145 mmol/L) 131 L Potassium (3.5 - 5.1 mmol/L) 3.9 Chloride (98 - 107 mmol/L) 89 L Carbon Dioxide (22 - 30 mmol/L) 29 Anion Gap (5 - 16) 14 BUN (9 - 20 mg/dL) 21 H Creatinine (0.7 - 1.2 mg/dL) 1.0 Estimated GFR (>60 ml/min) > 60 BUN/Creatinine Ratio (7 - 25 %) 21.0 Glucose (65 - 99 mg/dL) 274 H Lactic Acid (0.7 - 2.1 mmol/L) Cancelled 1.3 Calcium (8.4 - 10.2 mg/dL) 8.2 L Magnesium (1.6 - 2.3 mg/dL) 1.7 Total Bilirubin (0.2 - 1.3 mg/dL) 1.0 AST (17 - 59 U/L) 120 H ALT (21 - 72 U/L) 176 H Alkaline Phosphatase (< 127 U/L) 163 H Creatine Kinase (55 - 170 U/L) 497 H Troponin I (<0.11 ng/ml) 0.06 Total Protein (6.3 - 8.2 g/dL) 7.2 Albumin (3.5 - 5.0 g/dL) 4.0 Globulin (1.9 - 4.2 gm/dL) 3.2 Albumin/Globulin Ratio (1.1 - 2.2 %) 1.3 Toxicology Urine Opiates Screen (>2000 NG/ML) < 100.00 Methadone Screen (>300 NG/ML) > 735 H Barbiturate Screen (>200 NG/ML) < 60 Ur Phencyclidine Scrn (>25 NG/ML) 7.80 Amphetamines Screen (>1000 NG/ML) < 100 U Benzodiazepines Scrn (>200 NG/ML) < 85 Urine Cocaine Screen (>300 NG/ML) < 50 Urine Cannabis Screen (>50 NG/ML) < 5.00 Urines Urine Color (YEL,AMB,STR) YEL Urine Clarity (CLEAR) CLEAR Urine pH (5.0 - 8.0) 6.0 Ur Specific [place] (1.001 - 1.035) >= 1.030 Urine Protein (NEG,<30 MG/DL) 100 H Urine Ketones (NEG) 15 H Urine Nitrite (NEG) NEG Urine Bilirubin (NEG) NEG Urine Urobilinogen (0.1 - 1.0 EU/dl) 2.0 H Ur Leukocyte Esterase (NEG) NEG Ur Microscopic SEDIMENT EXAMINED Urine RBC (0 - 5 /HPF) 3-5 Urine WBC (0 - 2 /HPF) 1-3 H Ur Epithelial Cells (NONE,FEW) FEW Urine Mucus (FEW,NONE) FEW Urine Hemoglobin (NEG) MOD H Urine Glucose (N MG/DL) NEG 03/15 03/15 0951 0936 Chemistry Magnesium Cancelled Hematology CBC w Diff NO MAN DIFF REQ WBC (4.8 - 10.8 /CUMM) 6.3 RBC (4.70 - 6.10 /CUMM) 4.70 Hgb (14.0 - 18.0 G/DL) 14.3 Hct (42 - 52 %) 42.5 MCV (80.0 - 94.0 FL) 90.5 MCH (27.0 - 31.0 PG) 30.4 MCHC (33.0 - 37.0 G/DL) 33.6 RDW (11.5 - 14.5 %) 13.2 Plt Count (130 - 400 /CUMM) 161 MPV (7.4 - 10.4 FL) 8.3 Gran % (42.2 - 75.2 %) 78.7 H Lymphocytes % (20.5 - 51.1 %) 10.2 L Monocytes % (1.7 - 9.3 %) 10.7 H Eosinophils % (0 - 5 %) 0.1 Basophils % (0.0 - 2.0 %) 0.3 Absolute Granulocytes (1.4 - 6.5 /CUMM) 5.0 Absolute Lymphocytes (1.2 - 3.4 /CUMM) 0.6 L Absolute Monocytes (0.10 - 0.60 /CUMM) 0.7 H Absolute Eosinophils (0.0 - 0.7 /CUMM) 0 Absolute Basophils (0.0 - 0.2 /CUMM) 0 Diagnostic Data EKG Results Tracing was personally reviewed and shows sinus rhythm at 79 bpm with possible left ventricular hypertrophy, left axis deviation CXR Results 1. Chronic elevation of right hemidiaphragm, unchanged. 2. No acute cardiopulmonary process seen. Other Results Telemetry tracings were personally reviewed and shows sinus rhythm Assessment/Plan Assessment/Plan 1. Altered mental status likely medication induced 2. Borderline ECG abnormality with no obvious cardiac symptoms 3. Mild CPK elevation/transaminitis 4. Diabetes mellitus/hypertension 5. Chronic low back pain 6. History of asymptomatic coronary artery calcifications The patient reports no chest pain, dyspnea, or palpitations. Serial troponins are negative and telemetry shows no evidence of significant arrhythmia. Can continue on daily aspirin and resume statin therapy when the mildly abnormal CPK /LFT levels improve. His outpatient antihypertensive regimen can be continued with the plan for further medication titration as an outpatient; he already has a follow-up visit scheduled with us on Thursday for this. He does have a home blood pressure cuff and I advised him to check his blood pressure 2-3 times daily for now to help us with additional BP medication titration in the near future. No additional inpatient cardiac workup is required. Please call with any additional questions or concerns. Parker Gonzales MD [facility] Consult Acknowledgment - Thank you for your consult request.
--- NOTE | 2017-03-16 12:34 | Cons- Neurology ---
General Information and HPI Consulting Request Date of Consult: 03/16/17 Requested By: Kwabena Baker MD History of Present Illness: [id number] male with history of chronic low back pain, opiate abuse currently on methadone and depression was admitted with altered mental status. Several weeks back, in addition to Paxil on which he has been maintained, Cymbalta was added to his therapeutic regimen. He was initially started on 30 mg and titrated to 60 mg after one week. Per the chart and the patient's , he was then noted to be increasingly confused, rigid, diaphoretic and displaying intermittent jerky movements. He will state that he has been shaky for several years. There may be a family history of tremor. His Cymbalta was discontinued. Over the past 48 hours there has been a significant improvement in his status. He is currently awake and aware, verbalizing some symptoms of depression but wishing to come off of medications, if able. Allergies/Medications Allergies: Coded Allergies: Penicillins (Severe, ANAPHYLAXIS 04/10/15) Home Med List: Aspirin (Ecotrin*) 81 MG TABLET.DR 1 TAB PO DAILY HEART/BLOOD (Reported) Azilsartan Med/Chlorthalidone (Edarbyclor 40-25 MG Tablet) 40 MG-25 MG TABLET 1 TAB PO DAILY BP (Reported) Diltiazem HCl (Diltiazem 24HR ER) 240 MG CAP.ER.24H 1 CAP PO DAILY HEART/BP ( Reported) Duloxetine HCl (Cymbalta) 60 MG CAPSULE.DR 1 CAP PO DAILY MENTAL HEALTH ( Reported) Ibuprofen 800 MG TABLET 1 TAB PO PRN PAIN/INFLAMMATION (Reported) Insulin NPL/Insulin Lispro (Humalog Mix 75-25 Kwikpen) 100 UNIT/ML (75-25) INSULN.PEN DM (Reported) Levothyroxine Sodium (Synthroid) 112 MCG TABLET 2 TAB PO DAILY THYROID ( Reported) Methadone HCl 5 MG/5 ML SOLUTION 105 MG PO DAILY CHRONIC PAIN (Reported) Naproxen Sodium (Aleve) 220 MG CAPSULE 1 CAP PO PRN PAIN/INFLAMMATION ( Reported) Pantoprazole Sodium 40 MG TABLET.DR 1 TAB PO DAILY GI (Reported) Paroxetine HCl 20 MG TABLET 1.5 TAB PO DAILY MENTAL HEALTH (Reported) Pravastatin Sodium 40 MG TABLET 1 TAB PO QPM CHOLESTEROL (Reported) Review of Systems Review of Systems: Notable for chronic back pain, intermittent tremulousness, anorexia and occasional jerking movements. 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 Home Smoking Status: Never Smoked ETOH Use: denies use Illicit Drug Use: denies illicit drug use Functional Ability ADLs Independent: dressing, eating, toileting, bathing. Ambulation: independent IADLs Independent: shopping, housework, finances, food prep, telephone, transportation , medication admin. Exam & Diagnostic Data Vital Signs and I&O Vital Signs Date Time Temp Pulse Resp B/P B/P Pulse O2 O2 Flow FiO2 Mean Ox Delivery Rate 03/16 1029 176/84 03/16 0657 97.7 85 20 182/78 93 Room Air 03/15 2300 99.3 87 20 160/80 93 Room Air 03/15 2011 99.5 78 16 154/73 94 Room Air 03/15 1808 97.8 72 18 144/78 97 Room Air 03/15 1705 164/78 02/ 1634 97.0 78 18 162/80 97 Room Air 03/15 1447 97.2 77 14 166/78 96 Room Air Intake & Output 03/16 1600 02/05 0800 02/ 0000 Intake Total 100 0 Output Total 240 Balance 100 -240 Intake, Oral 100 0 Output, Urine 240 Patient 268 lb Weight Weight Reported by Patient Measurement Method Pleasant, elderly, obese male in no acute distress. The head was normocephalic and atraumatic. He was awake, alert and cooperative. Speech was fluent. He was oriented to person place and time. He knew the name of the current president and the teams competed in the [employer] last night. Pupils were equal. Extraocular movements were full. There was no nystagmus. Face was symmetric. Hearing was normal. Tongue was midline. Motor examination showed no focal or lateralizing weakness. Deep tendon reflexes were symmetric. Plantar responses were flexor. Fine finger movements and rapid alternating movements performed normally. There was no ataxia on [id number] testing. Assessment/Plan Assessment: #1 resolving encephalopathy. History of associated rigidity, diaphoresis and tremulousness might speak for a serotonin syndrome. #2 depression #3 chronic pain syndrome currently on methadone Recommendations: Agree with withholding Cymbalta. He is clearly improving. No additional symptomatic treatments would be recommended however ongoing psychiatry follow-up will be needed going forward. As he wishes to avoid further psychoactive medications, counseling may be the best way to proceed. He appears to have insight into his condition. No further neurodiagnostic studies are anticipated. Please feel free to call with any further questions. Consult Acknowledgment - Thank you for your consult request.
--- NOTE | 2017-03-16 13:07 | Cons- Endocrinology ---
General Information and HPI Consulting Request Date of Consult: 03/16/17 Requested By: medical team Reason for Consult: management of uncontrolled diabetes. Source of Information: patient, family Exam Limitations: no limitations History of Present Illness: This is a 71-year-old gentleman with past medical history significant for hypertension, diabetes type 2, hyperlipidemia, and hypothyroidism, chronic low back pain (on a stimulator), history of opiate abuse on methadone program. He was brought in by his due to sudden onset altered mental status since Thursday. At home, he was on Humalog 75/25 mix 30 units before breakfast and before dinner. In hopsital, he was put on Novolog 70/30 mix 30 units twice a day. He received the first dost at around 10:30 am this morning. His FSGs were 188 and 216. In addition, he is on Novolog coverage before meals. Allergies/Medications Allergies: Coded Allergies: Penicillins (Severe, ANAPHYLAXIS 04/10/15) Home Med List: Aspirin (Ecotrin*) 81 MG TABLET.DR 1 TAB PO DAILY HEART/BLOOD (Reported) Azilsartan Med/Chlorthalidone (Edarbyclor 40-25 MG Tablet) 40 MG-25 MG TABLET 1 TAB PO DAILY BP (Reported) Diltiazem HCl (Diltiazem 24HR ER) 240 MG CAP.ER.24H 1 CAP PO DAILY HEART/BP ( Reported) Duloxetine HCl (Cymbalta) 60 MG CAPSULE.DR 1 CAP PO DAILY MENTAL HEALTH ( Reported) Ibuprofen 800 MG TABLET 1 TAB PO PRN PAIN/INFLAMMATION (Reported) Insulin NPL/Insulin Lispro (Humalog Mix 75-25 Kwikpen) 100 UNIT/ML (75-25) INSULN.PEN DM (Reported) Levothyroxine Sodium (Synthroid) 112 MCG TABLET 2 TAB PO DAILY THYROID ( Reported) Methadone HCl 5 MG/5 ML SOLUTION 105 MG PO DAILY CHRONIC PAIN (Reported) Naproxen Sodium (Aleve) 220 MG CAPSULE 1 CAP PO PRN PAIN/INFLAMMATION ( Reported) Pantoprazole Sodium 40 MG TABLET.DR 1 TAB PO DAILY GI (Reported) Paroxetine HCl 20 MG TABLET 1.5 TAB PO DAILY MENTAL HEALTH (Reported) Pravastatin Sodium 40 MG TABLET 1 TAB PO QPM CHOLESTEROL (Reported) Review of Systems Review of Systems Constitutional: Reports: see HPI. Cardiovascular: Denies: chest pain. Respiratory: Reports: short of breath (mild). GI: Denies: abdominal pain. Musculoskeletal: Reports: back pain (chronically). Neurological/Psychological: Reports: depressed. Hematologic/Endocrine: Denies: polyuria, polydipsia. 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 Home Smoking Status: Never Smoked ETOH Use: denies use Illicit Drug Use: denies illicit drug use Functional Ability ADLs Independent: dressing, eating, toileting, bathing. Ambulation: independent IADLs Independent: shopping, housework, finances, food prep, telephone, transportation , medication admin. Exam & Diagnostic Data Last 24 Hrs of Vital Signs/I&O Vital Signs Date Time Temp Pulse Resp B/P B/P Pulse O2 O2 Flow FiO2 Mean Ox Delivery Rate 03/16 1029 176/84 03/16 0657 97.7 85 20 182/78 93 Room Air 03/15 2300 99.3 87 20 160/80 93 Room Air 03/15 2011 99.5 78 16 154/73 94 Room Air 03/15 1808 97.8 72 18 144/78 97 Room Air 03/15 1705 164/78 03/15 1634 97.0 78 18 162/80 97 Room Air 03/15 1447 97.2 77 14 166/78 96 Room Air Intake & Output 03/16 1600 03/16 0800 03/16 0000 Intake Total 100 0 Output Total 240 Balance 100 -240 Intake, Oral 100 0 Output, Urine 240 Patient 268 lb Weight Weight Reported by Patient Measurement Method Physical Exam General Appearance: no apparent distress Neck: normal inspection Respiratory: lungs clear Cardiovascular: regular rate/rhythm Gastrointestinal: soft, non-tender Extremities: no edema Labs/Wero Results: Laboratory Tests 03/16 03/15 03/15 0704 2325 1645 Chemistry Sodium (137 - 145 mmol/L) 134 L Potassium (3.5 - 5.1 mmol/L) 3.7 Chloride (98 - 107 mmol/L) 92 L Carbon Dioxide (22 - 30 mmol/L) 28 Anion Gap (5 - 16) 14 BUN (9 - 20 mg/dL) 25 H Creatinine (0.7 - 1.2 mg/dL) 1.2 Estimated GFR (>60 ml/min) 60 BUN/Creatinine Ratio (7 - 25 %) 20.8 Creatine Kinase (55 - 170 U/L) 659 H Troponin I (<0.11 ng/ml) 0.06 0.06 TSH (0.270 - 4.200 uIU/mL) 0.405 Hematology CBC w Diff NO MAN DIFF REQ WBC (4.8 - 10.8 /CUMM) 4.6 L RBC (4.70 - 6.10 /CUMM) 4.59 L Hgb (14.0 - 18.0 G/DL) 13.9 L Hct (42 - 52 %) 41.3 L MCV (80.0 - 94.0 FL) 89.9 MCH (27.0 - 31.0 PG) 30.3 MCHC (33.0 - 37.0 G/DL) 33.7 RDW (11.5 - 14.5 %) 13.8 Plt Count (130 - 400 /CUMM) 153 MPV (7.4 - 10.4 FL) 8.1 Gran % (42.2 - 75.2 %) 61.5 Lymphocytes % (20.5 - 51.1 %) 25.4 Monocytes % (1.7 - 9.3 %) 12.7 H Eosinophils % (0 - 5 %) 0.1 Basophils % (0.0 - 2.0 %) 0.3 Absolute Granulocytes (1.4 - 6.5 /CUMM) 2.8 Absolute Lymphocytes (1.2 - 3.4 /CUMM) 1.2 Absolute Monocytes (0.10 - 0.60 /CUMM) 0.6 Absolute Eosinophils (0.0 - 0.7 /CUMM) 0 Absolute Basophils (0.0 - 0.2 /CUMM) 0 Serology Hepatitis A IgM Ab (NONREACTIVE) NONREACTIVE Hep Bs Antigen (NONREACTIVE) NONREACTIVE Hep B Core IgM Ab Conf (NONREACTIVE) NONREACTIVE Hepatitis C Antibody (NONREACTIVE) NONREACTIVE Assessment/Plan Assessment/Plan 71-year-old gentleman with past medical history significant for hypertension, diabetes type 2, hyperlipidemia, and hypothyroidism, chronic low back pain (on a stimulator), history of opiate abuse on methadone program. He was brought in by his due to sudden onset altered mental status since Thursday. At home, he was on Humalog 75/25 mix 30 units before breakfast and before dinner. DM management in hospital: 1. stop Novolog 70/30 mix; 2. adjust Novolog coverage before meals and Novolog coverage at bedtime; detail see the inpatient DM orders; 3. start Levemir 15 units twice a day; first dose tonight. 4. monitor FSGs. will follow. Inpatient Diabetes Orders Before Each Meal: Bolus Insulin: Novolog < 80 mg/dl: no coverage 80-100 mg/dl: 6 units 101-120 mg/dl: 6 units 121-150 mg/dl: 6 units 151-200 mg/dl: 8 units 201-250 mg/dl: 10 units 251-300 mg/dl: 12 units 301-350 mg/dl: 14 units 351-400 mg/dl: 15 units > 400 mg/dl: 16 units Bedtime: Bolus Insulin: Novolog < 80 mg/dl: no coverage 80-100 mg/dl: no coverage 101-120 mg/dl: no coverage 121-150 mg/dl: no coverage 151-200 mg/dl: no coverage 201-250 mg/dl: no coverage 251-300 mg/dl: 2 units 301-350 mg/dl: 3 units 351-400 mg/dl: 4 units > 400 mg/dl: 5 units Consult Acknowledgment - Thank you for your consult request.
--- NOTE | 2017-03-16 13:33 | PN- Student ---
Cesia Pressley 03/16/17 1313: Subjective Subjective: Follow up for: Serotonin syndrome Tele Events: Normal Sinus Rhythm :60 - 84 Patient reports that he slept throughout the night.His onset of symptoms began approximately 2 years ago but this week his confusion and difficulty getting his words out in a sensible manner became noticably worse prompting his to bring him in.Reports that he had a bowel movement this morning and that he has not had one approximately 4 days prior to this.His does note that he has trouble with constipation and he confirmed that of recent he does only have 1 bowel movement per week.Patient reports that sometimes if he gets off the bed too quickly he get lightheaded and does have trouble walking. Review of Systems Review of Systems Constitutional: Reports: weakness. Denies: chills, fever. EENTM: Reports: no symptoms. Cardiovascular: Denies: chest pain, palpitations. Respiratory: Denies: cough, orthopnea, short of breath. GI: Reports: constipation. Genitourinary: Reports: no symptoms. Neurological/Psychological: Reports: confusion. Denies: headache. Objective Objective: Vital Signs Date Time Temp Pulse Resp B/P B/P Pulse O2 O2 Flow FiO2 Mean Ox Delivery Rate 03/16 1029 176/84 03/16 0657 97.7 85 20 182/78 93 Room Air 03/15 2300 99.3 87 20 160/80 93 Room Air 03/15 2010 99.5 78 16 154/73 94 Room Air 03/15 1808 97.8 72 18 144/78 97 Room Air 03/15 1705 164/78 03/15 1634 97.0 78 18 162/80 97 Room Air 03/15 1447 97.2 77 14 166/78 96 Room Air Intake & Output 03/16 1600 03/16 0800 03/16 0000 Intake Total 100 0 Output Total 240 Balance 100 -240 Intake, Oral 100 0 Output, Urine 240 Patient 268 lb Weight Weight Reported by Patient Measurement Method Physical Exam: General Appearance Cooperative, No Acute Distress, alert and oriented x3 Cardiovascular Normal S1, Normal S2, No Murmurs Lungs Clear to Auscultation Abdomen Soft Neurological intermittent tremor of hands bilaterally Current Medications Sig/Radha Start time Last Medication Dose Route Stop Time Status Admin Aspirin Buffered 81 MG DAILY 03/15 1615 AC 03/16 PO 1030 Chlorthalidone 25 MG DAILY 03/15 1616 AC 03/16 PO 1029 Diltiazem HCl 240 MG DAILY 03/16 1000 AC 03/16 PO 1030 Heparin Sodium 0 .STK-MED ONE 03/15 2045 DC (Porcine) .ROUTE Heparin Sodium 5,000 UNIT Q8 03/15 1701 AC 03/16 (Porcine) SC 1318 Insulin Aspart 0 TIDAC/HS 03/16 1700 AC SC Insulin Aspart 0 TIDAC 03/15 1700 DC 03/15 SC 1946 Insulin Aspart Prota 30 UNIT 0800,1700 03/16 0800 DC 03/16 70%/Aspart 30% SC 1030 Insulin Detemir 15 UNITS BID 03/16 2200 AC SC Levothyroxine Sodium 0.224 MG DAILY AC 03/16 0700 AC 03/16 PO 0655 Losartan Potassium 25 MG DAILY 03/15 1624 AC 03/16 PO 1029 Methadone HCl 105 MG DAILY 03/16 1215 AC 03/16 PO 1303 Nystatin 1 DRAKE BID PRN 03/15 1630 AC 03/15 TOP 2319 Paroxetine HCl 30 MG DAILY 03/16 1000 DC 03/16 PO 1030 Polyethylene Glycol 17 GM DAILY NEEDED PRN 03/16 1145 AC PO Pravastatin Sodium 20 MG 1700 03/15 1700 DC PO Senna/Docusate Sodium 1 TAB BID PRN 03/16 1145 AC PO Sodium Chloride 1,000 ML ONCE ONE 03/16 0945 AC 03/16 IV 03/16 2304 1031 Sodium Chloride 1,000 ML BOLUS ONE 03/15 1230 DC 03/15 IV 03/15 1329 1230 Results Results: Laboratory Tests 03/16/17 0704: Anion Gap 14, Estimated GFR 60, BUN/Creatinine Ratio 20.8, Creatine Kinase 659 H, CBC w Diff NO MAN DIFF REQ, RBC 4.59 L, MCV 89.9, MCH 30.3, MCHC 33.7, RDW 13.8, MPV 8.1, Gran % 61.5, Lymphocytes % 25.4, Monocytes % 12.7 H, Eosinophils % 0.1, Basophils % 0.3, Absolute Granulocytes 2.8, Absolute Lymphocytes 1.2, Absolute Monocytes 0.6, Absolute Eosinophils 0, Absolute Basophils 0, Hepatitis A IgM Ab NONREACTIVE, Hep Bs Antigen NONREACTIVE, Hep B Core IgM Ab Conf NONREACTIVE, Hepatitis C Antibody NONREACTIVE 03/15/17 2325: Troponin I 0.06 03/15/17 1645: Troponin I 0.06, TSH 0.405 03/15/17 1312: Ammonia < 9 L 03/15/17 1236: Lactic Acid Cancelled 03/15/17 1037: Urine Opiates Screen < 100.00, Methadone Screen > 735 H, Barbiturate Screen < 60, Ur Phencyclidine Scrn 7.80, Amphetamines Screen < 100, U Benzodiazepines Scrn < 85, Urine Cocaine Screen < 50, Urine Cannabis Screen < 5.00, Urine Color YEL, Urine Clarity CLEAR, Urine pH 6.0, Ur Specific [place] >= 1.030, Urine Protein 100 H, Urine Ketones 15 H, Urine Nitrite NEG, Urine Bilirubin NEG, Urine Urobilinogen 2.0 H, Ur Leukocyte Esterase NEG, Ur Microscopic SEDIMENT EXAMINED, Urine RBC 3-5, Urine WBC 1-3 H, Ur Epithelial Cells FEW, Urine Mucus FEW, Urine Hemoglobin MOD H, Urine Glucose NEG 03/15/17 1030: Anion Gap 14, Estimated GFR > 60, BUN/Creatinine Ratio 21.0, Glucose 274 H, Lactic Acid 1.3, Calcium 8.2 L, Magnesium 1.7, Total Bilirubin 1.0, AST 120 H, ALT 176 H, Alkaline Phosphatase 163 H, Creatine Kinase 497 H, Troponin I 0.06 , Total Protein 7.2, Albumin 4.0, Globulin 3.2, Albumin/Globulin Ratio 1.3 03/15/17 0951: Magnesium Cancelled 03/15/17 0936: CBC w Diff NO MAN DIFF REQ, RBC 4.70, MCV 90.5, MCH 30.4, MCHC 33.6, RDW 13.2, MPV 8.3, Gran % 78.7 H, Lymphocytes % 10.2 L, Monocytes % 10.7 H, Eosinophils % 0.1, Basophils % 0.3, Absolute Granulocytes 5.0, Absolute Lymphocytes 0.6 L, Absolute Monocytes 0.7 H, Absolute Eosinophils 0, Absolute Basophils 0 Microbiology 03/15 1140 NASOPHARYN: Influenza Virus A & B Rapid Smear - COMP Assessment/Plan Assessment: Doc Huynh is a 71 y/o male with a past medical history of hypertention,hyperlipidemia,chronic back pain,osteoarthritis,diabetes and hypothyroidism who was BIBA from home with complaints of altered mental status. EKG showed Nonspecific ST-T segment changes,Utox was positive for methadone, chest Xray showed unchanged chronic elevation of right hemidiaphragm and no acute cardiopulmonary process seen.Head Ct reveavled no acute intracranial pathology. Problem List: 1)Altered mental status 2) EKG changes 3) Elevated Creatinine Kinase Plan: Altered Mental status. Patient's altered mental status can be attributed to his recent change in medications and possible serotonin syndrome.Patient for the last 2 years has been on paroxetine for depression and opiate dependence and has expressed on an off episodes of confusion during which he is not able to continue the conversation and his line of thinking.Approximately 2 weeks ago was seen by for a geriatric consult during which dementia was ruled out and Cymbalta added to his regimen while tapering his paroxetiene dosage.A week ago his Cymbalta dose was increased to 60mg a day and paraxoetine was kept at 30mg per day until follw up visit on March.It was during this time that the patient started experiencing symptoms of increased confusion,more than his baseline,fatigue/malaise,sweats and increased bilateral upper extremity jerks and spasm. -Discontinue Cymbalta -Monitor patient closely -MRI of brain -Neuro consult -Psych consult EKG changes On admission patient was noted to have non specific ST -Twave changes.Troponins was repeated x3 and found to be negative.Patient is currently asymptomatic denying any chest pain, shortness of breath or palpitations. -patient admitted to telemetry for monitoring -Cardiology consult -follow up with his yield analyst for comparison with previous workups and medications -continue his home antihypertensive medications -per cardiology can continue on daily aspirin and resume statin therapy when the mildly abnormal CPK/LFT levels improve. Elevated Creatinine Kinase Elevated creatinine kinase can be due to mild rhabdomylysis secondary to patient's possible serotonin syndrome from his medication and bilateral upper limb jerks. -hydrate with normal saline at 100 cc per hour for 1 L -repeat CPK -Obtain right upper quadrant sonogram. Check viral hepatitis panel. -monitor levels Full Code Low Carb diet DVT prophylaxsis:Heparin Alison Francis MD 03/19/17 6729: Resident Review Statement Resident Statement: examined this patient, discussed with the medical student
[2017-03-16 15:16] VITALS: BP 144/80
--- NOTE | 2017-03-16 17:29 | Patient Discharge Instructions ---
Discharge Instructions General Discharge Information You were seen/treated for: Serotonin Syndrome Special Instructions: 1. Please follow up with your auto hauler on Thursday, 03.20.2017 as scheduled. 2. Please follow up with your pcp within 1 week of discharge. 3. Please have blood work done (CPK level) 4. Please follow up with psychiatry within 1 week of discharge 5. Please stop talking the cymbalta and paxil until you see psychiatry 6. Please speak with your pcp so they may provide you a referal to the [facility] Diet Continue normal diet: No Recommended Diet: Diabetic Activity Full Activity/No Limits: No Activity Self Limited: Yes Acute Coronary Syndrome Inclusion Criteria At DC or during hospital stay patient has or had the following: ACS DIAGNOSIS No Discharge Core Measures Meds if any: Prescribed or Continued at Discharge Meds if any: NOT Prescribed or Continued at Discharge Congestive Heart Failure Inclusion Criteria At DC or during hospital stay patient has or had the following: CHF DIAGNOSIS No Discharge Core Measures Meds if any: Prescribed or Continued at Discharge Meds if any: NOT Prescribed or Continued at Discharge Cerebrovascular accident Inclusion Criteria At DC or during hospital stay patient has or had the following: CVA/TIA Diagnosis No Discharge Core Measures Meds if any: Prescribed or Continued at Discharge Meds if any: NOT Prescribed or Continued at Discharge Venous thromboembolism Inclusion Criteria VTE Diagnosis No VTE Type NONE VTE Confirmed by (Test) NONE Discharge Core Measures - Per Current guidelines, there needs to be overlap - treatment for the first 5 days of Warfarin therapy. - If discharged on Warfarin prior to 5 days of - overlap therapy, the patient will need to be - assessed for post discharge needs including - *Post discharge parental anticoagulation - *Warfarin and/or parental anticoagulation education - *Follow up date to check INR post discharge At least 5 days overlap therapy as Inpatient No Meds if any: Prescribed or Continued at Discharge Note: Overlap Therapy is Warfarin and Anticoagulant Meds if any: NOT Prescribed or Continued at Discharge
[2017-03-16 22:12] VITALS: BP 166/60
[2017-03-17 06:37] VITALS: BP 158/62
--- NOTE | 2017-03-17 07:34 | PN- Housestaff ---
See Addendum Subjective Follow-up For: AMS 2/2 to medications, serotonin syndrome. Abnormal EKG Transaminitis Opioid dependence Tele-Events Since Last Visit: SR, Junctional Rhythm, PVCs HR: 60-81 Subjective: Patient was seen and examined today. Patient remains confused today. Does not know where he is or the date. Patient reports a sore throat. Denies any other pain at this time. States he still feels like he is twitching. Patient denies nausea/vomitting, abdominal pain, chest pain, palpitations, dizziness, lightheadedness, fever or chills. Patient had a temperature of 100.7 overnight. Review of Systems Constitutional: Reports: no symptoms. Cardiovascular: Reports: no symptoms. Respiratory: Reports: see HPI. Gastrointestinal: Reports: no symptoms. Genitourinary: Reports: no symptoms. Musculoskeletal: Reports: no symptoms. Skin: Reports: no symptoms. Neurological/Psychological: Reports: confusion, tremors, weakness. Objective Last 24 Hrs of Vital Signs/I&O Vital Signs Date Time Temp Pulse Resp B/P B/P Pulse O2 O2 Flow FiO2 Mean Ox Delivery Rate 03/17 0637 98.6 78 20 158/62 94 Room Air 02/ 0031 98.7 / 0015 98.7 / 2225 100.7 / 2212 100.7 76 20 166/60 93 Room Air 02/ 1600 Room Air 02/ 1516 97.3 73 20 144/80 93 Room Air / 1029 176/84 Intake & Output 03/17 1600 / 0800 02/ 0000 Intake Total 300 950 Output Total Balance 300 950 Intake, IV 200 600 Intake, Oral 100 350 Number 0 Bowel Movements Physical Exam General Appearance: Alert, Cooperative, No Acute Distress, patient is alert only to person HEENT: Atraumatic, PERRLA, EOMI, Mucous Membr. moist/pink Cardiovascular: Regular Rate, Normal S1, Normal S2, No Murmurs Lungs: Clear to Auscultation, Normal Air Movement Abdomen: Normal Bowel Sounds, Soft, No Tenderness Neurological: Normal Speech, Strength at 5/5 X4 Ext, Normal Tone, Sensation Intact, Cranial Nerves 3-12 NL, Reflexes 2+, unable to recall objects x3 Extremities: No Clubbing, No Cyanosis, No Edema, Normal Pulses, No Tenderness/ Swelling Current Medications: Current Medications Sig/Radha Start time Last Medication Dose Route Stop Time Status Admin Acetaminophen 1,000 MG ONCE ONE 03/16 2214 DC 03/16 IV 03/16 221 2225 Acetaminophen 650 MG .STK-MED ONE 03/16 2156 DC PO 03/16 2158 Aspirin Buffered 81 MG DAILY 03/15 1615 AC 03/16 PO 1030 Chlorthalidone 25 MG DAILY 03/15 1616 AC 03/16 PO 1029 Diltiazem HCl 240 MG DAILY 03/16 1000 AC 03/16 PO 1030 Heparin Sodium 5,000 UNIT Q8 03/15 1701 AC 03/17 (Porcine) SC 0620 Insulin Aspart 0 TIDAC/HS 03/16 1700 AC 03/16 SC 1755 Insulin Aspart 0 TIDAC 03/15 1700 DC 03/15 SC 1946 Insulin Aspart Prota 30 UNIT 0800,1700 03/16 0800 DC 03/16 70%/Aspart 30% SC 1030 Insulin Detemir 15 UNITS BID 03/16 2200 AC 03/16 SC 2157 Levothyroxine Sodium 0.224 MG DAILY AC 03/16 0700 AC 03/17 PO 0622 Losartan Potassium 25 MG DAILY 03/15 1624 AC 03/16 PO 1029 Methadone HCl 105 MG DAILY 03/16 1215 AC 03/16 PO 1303 Nystatin 1 DRAKE BID PRN 03/15 1630 AC 03/15 TOP 2319 Paroxetine HCl 30 MG DAILY 03/16 1000 DC 03/16 PO 1030 Polyethylene Glycol 17 GM DAILY NEEDED PRN 03/16 1145 AC PO Senna/Docusate Sodium 1 TAB BID PRN 03/16 1145 AC PO Sodium Chloride 1,000 ML ONCE ONE 03/16 0945 DC 03/16 IV 03/16 2304 1031 Last 24 Hrs of Lab/Wero Results Last 24 Hrs of Labs/Mics: Laboratory Tests 03/17/17 0718: Anion Gap 13, Estimated GFR 60, BUN/Creatinine Ratio 20.0, Total Bilirubin 0.4, Direct Bilirubin 0.3, AST 81 H, ALT 108 H, Alkaline Phosphatase 123, Creatine Kinase 836 H, Total Protein 6.1 L, Albumin 3.2 L Assessment/Plan Assessment: Patient is a 71-year-old male with past medical history of hypertension, diabetes, hyperlipidemia, hypothyroidism, chronic low back pain with neurostimulator, history of opiate abuse currently in a methadone program presenting this admission with a one-week history of confusion, sweating, muscle rigidity, upper extremity jerking movements and tremor after being started on Cymbalta 60 mg daily. Patient on admission was found to have elevated blood pressure, labs significant for sodium of 131, CPK of 497, EKG showing EKG abnormalities with troponins of 0.06. Chest x-ray and head CT were negative for acute pathology. Patient had elevated transaminases. U tox was positive for methadone. Patient was worked up for possible causes of AMS including infectious etiologies , electrolyte abnormalities, toxic causes, and neurocardiac etiologies. Based on patient's presentation of muscle rigidity, sweating, tremor with the recent increase in cymbalta in conjunction with paxil, patient's symptoms are likely attributed to serotonin syndrome. Patient today remains confused with continued jerking movements which have improved. Patient's CPK continues to trend up, however LFTs have been downtrending. Patient continues to have low sodium of 133. Patient was seen by cardiology for abnormal EKGs. Patient was cleared by cardiology with no further intervention necessary. Patient is to continue his antihypertensive medications and aspirin. Pravastatin will be continued once patient's symptoms and LFTs have improved. Patient was seen and evaluated by neurology for AMS likely serotonin syndrome. Per neurology no further interventions are needed as patient 's symptoms are improving. Psychiatry consulted. Verbally spoke to psychiatry. Will hold off on SSRIs at this time. Patient has uncontrolled diabetes. Patient was seen by endocrinology with recommendations to start long acting insulin tonight and regular sliding scale. Patient is on methadone. The methadone clinic he attends was called to confirm his medication dosage. Patient filled the methadone on 03/12 and has enough medication until 03/18. Patient takes 105 mg methadone daily. Problems: 1. AMS, likely serotonin syndrome 2. Boderline ECG changes 3. Rhabdomyolysis 4. Transaminitis 5. Uncontrolled DM Plan: Patient admitted to telemetry Cardiology, Endocrinology, Neurology and Psychiatry on board. Appreciate Recommendations Cymbalta and Paxil held Continued aspirin Continue Levemir 15 units twice a day Accuchecks TIDAC and qHS Novolog SS TIDAC and qHS Normal saline IV @ 75 cc/hr for hyponatremia and rhabdomyolysis Continue synthroid, losartan, diltiazem, chlorothalidone Continue methadone 105 mg daily Monitor Sodium, Creatinine, CPK and LFTs Diet: Diabetic diet Code: full code DVT PPx: ALPs, Heparin SC Problem List: 1. Altered mental status Pain Ratin Pain Location: back Pain Goal: Pain 4 or less Pain Plan: methadone Tomorrow's Labs & Rationales: bep - hyponatremia cpk, lfts
--- NOTE | 2017-03-17 08:39 | PN- Diabetes ---
Assessment/Plan Assessment: 71-year-old gentleman with past medical history significant for hypertension, diabetes type 2, hyperlipidemia, and hypothyroidism, chronic low back pain (on a stimulator), history of opiate abuse on methadone program. He was brought in by his due to sudden onset altered mental status since Thursday. At home, he was on Humalog 75/25 mix 30 units before breakfast and before dinner. He was put on Levemir 15 units twice a day, Novolog coverage before meals and Novolog coverage at bedtime. His FSGs were 208, 156 and 172. He had T of 100.7 last night. He felt better this morning. Plan: continue the current insulin regimen at this point in hospital; monitor FSGs. will follow. Subjective Subjective: He felt better this morning. Objective Last 24 Hrs of Vital Signs/I&O Vital Signs Date Time Temp Pulse Resp B/P B/P Pulse O2 O2 Flow FiO2 Mean Ox Delivery Rate 03/17 06 98.6 78 20 158/62 94 Room Air 03/17 0031 98.7 03/17 0015 98.7 03/16 2225 100.7 03/16 2212 100.7 76 20 166/60 93 Room Air 03/16 1600 Room Air 03/16 1516 97.3 73 20 144/80 93 Room Air 03/16 1029 176/84 Intake & Output 03/17 1600 03/17 0800 03/17 0000 Intake Total 300 950 Output Total Balance 300 950 Intake, IV 200 600 Intake, Oral 100 350 Number 0 Bowel Movements Findings Pertinent Lab/Wero Results: Laboratory Tests 03/17 0618 Chemistry Sodium (137 - 145 mmol/L) 133 L Potassium (3.5 - 5.1 mmol/L) 3.5 Chloride (98 - 107 mmol/L) 93 L Carbon Dioxide (22 - 30 mmol/L) 27 Anion Gap (5 - 16) 13 BUN (9 - 20 mg/dL) 24 H Creatinine (0.7 - 1.2 mg/dL) 1.2 Estimated GFR (>60 ml/min) 60 BUN/Creatinine Ratio (7 - 25 %) 20.0 Total Bilirubin (0.2 - 1.3 mg/dL) 0.4 Direct Bilirubin (< 0.4 mg/dL) 0.3 AST (17 - 59 U/L) 81 H ALT (21 - 72 U/L) 108 H Alkaline Phosphatase (< 127 U/L) 123 Creatine Kinase (55 - 170 U/L) 836 H Total Protein (6.3 - 8.2 g/dL) 6.1 L Albumin (3.5 - 5.0 g/dL) 3.2 L
--- NOTE | 2017-03-17 13:48 | ED PSYCHIATRIST/APRN CONSULT ---
Psychiatrist/WRAPPING CHECKER ED Consult Assessment and Plan: ERROR SEE CORRECTED NOTE Assessment/Plan Consult Acknowledgment - Thank you for your consult request. History of Present Illness Medical History Neurological: NONE EENT: cataracts Cardiovascular: hypertension, hyperlipidemia Respiratory: NONE Gastrointestinal: NONE Hepatic: NONE Renal: NONE Musculoskeletal: chronic back pain, osteoarthritis, LUMBAR FXS Psychiatric: NONE, opioid dependence, substance abuse Endocrine: diabetes, hypothyroidism Blood Disorders: NONE Cancer(s): NONE CHIEF OF HOSPITAL MEDICINE/Reproductive: NONE History of MRSA: No History of VRE: No History of CDIFF: No Isolation History: Standard Surgical History Pertinent Surgical History: appendectomy, cholecystectomy, thyroidectomy(2007) Psychosocial History Where Do You Live? Home Who Do You Live With? Spouse What is Your Primary Language? Greek ETOH Use: denies use Illicit Drug Use History: Patient has a history of opioid and EtOH abuse for which he sought successful treatment at [facility] in 1990. Patient reports no alcohol or illicit opiod use since rehab. Patient has been receiving prescription methadone for 2 years for chronic back pain. Current Mental Status Mental Status Orientation: Confused, Person, Place, Situation Affect: Anxious, Variable Speech: WNL Neuro-vegetative: WNL Appearance Appearance- Dress/Hygiene: Patient is a well developed, well nourished elderly white male who appears his stated age wearing a hospital gown and sitting comfortably in the arm chair. Behaviors Thought Process: Disorganized Thought Content: WNL Memory: Impaired Insight: WNL SI/HI Risk Assessment Past Suicidal Ideation/Attempts No Current Suicidal Ideation/Att No Past Homicidal Ideation/Att: No Current Homicidal Ideation/Attempts No Psychiatric Consult Allergies: Coded Allergies: Penicillins (Severe, ANAPHYLAXIS 04/10/15) Treatment Plan - Please Document: - Evidence that there is ongoing collaboration between - the patient and the interdisciplinary team, - including the patient's active participation and - responsibility for engaging in the treatment regimen, - and that the treatment plan is individualized and - relevant to the patient's conditions. - Treatment plan should reflect documentation indicating - that all active therapeutic efforts are included. Strengths/Capabilities: Supportive Desire to feel better Treatment-seeking Physical Limitations (Interventions): Chronic back pain - responsibility for engaging in the treatment regimen, - and that the treatment plan is individualized and - relevant to the patient's conditions. - Treatment plan should reflect documentation indicating - that all active therapeutic efforts are included. Strengths/Capabilities: Supportive Desire to feel better Treatment-seeking Physical Limitations (Interventions): Chronic back pain
[2017-03-17 13:55] VITALS: BP 138/60
--- NOTE | 2017-03-17 16:16 | ED PSYCHIATRIST/APRN CONSULT ---
Psychiatrist/[facility] ED Consult Assessment and Plan: Source: Patient, and daughter Reliability: Patient moderately confused, and daughter reliable collateral sources. History of Present Illness: Patient is a 71 y/o male w/ PMH significant for diabetes, HTN/HLD, hypothyroid 2' thyroidectomy (2007), past h/o EtoH and opioid abuse in remission since 1990,depression and spinal stenosis currently on methadone for chronic pain management who was BIBA to the [facility] on 03/15/17 after 2 days of increasing discomfort and altered mental status after being started on Cimbalta 60mg daily. Prior to the onset of symptoms the patient was undergoing changes to his blood pressure medication regimen by his day guard as well as his psychiatric medication regimen by a geriatric specialist. The patient and his report that 2 weeks prior to symptom onset he was placed on Cimbalta 30mg and titrated up to 60 mg 1 day prior to symptom onset in preparation to transition off of Paxil 30mg. Patient and his report rigidity, heart palpitations, diaphoresis, involuntary jerking motions, agitation, anxiety and confusion beginning the following morning that worsened until services were called by his on Thursday03/15/17. At the time of interview the patient reported continued muscle clonus, agitation , diaphoresis, as well as feelings of fear, helplessness, disorientation, and anxiety, stating "I just can't trust my mind". He denied any rigidity, miac delusions, AH, VH, SI, HI, feelings of hopelessness, worthlessness, or guilt. As per , the patient's mental status is worse today than yesterday. Past Psychiatric History: Inpatient Admissions: None Outpatient Care: [facility] (Mr. Schuler) Suicide Attempts: None Suicidal Ideation: None Homicidal Ideation: None Substance Use: Opioid and EtOH Use Disorder- In remission (1990) Past Medical History: - Diabetes Melitus - Hypothyroidism 2' Thyroidectomy, currently controlled on Levothyroxin - Hypertension - Hyperlipidemia - Spinal Stenosis/ chronic back pain: currently controlled on methadone 105mg qD. Past Surgical History: - Appendectomy - Cholecystectomy - Thyroidectomy (2007) Allergies: - Penicillins (Anaphylaxis) Social History: Lives at home independently w/ . On good terms w/ adult daughter. Never smoker. Denies EtOH and illicit drug use. Medications: Current Medications Sig/Radha Start time Last Medication Dose Route Stop Time Status Admin Acetaminophen 1,000 MG ONCE ONE 03/16 2215 DC 03/16 IV 03/16 2216 2225 Acetaminophen 650 MG .STK-MED ONE 03/16 215 DC PO 03/16 2158 Aspirin Buffered 81 MG DAILY 03/15 1615 AC 03/17 PO 0842 Chlorthalidone 25 MG DAILY 03/15 1616 AC 03/17 PO 0843 Diltiazem HCl 240 MG DAILY 03/16 1000 AC 03/17 PO 0842 Heparin Sodium 5,000 UNIT Q8 03/15 1701 AC 03/17 (Porcine) SC 1231 Insulin Aspart 0 TIDAC/HS 03/16 1700 AC 03/17 SC 1225 Insulin Detemir 15 UNITS BID 03/16 2200 AC 03/17 SC 0848 Levothyroxine Sodium 0.224 MG DAILY AC 03/16 0700 AC 03/17 PO 0622 Losartan Potassium 25 MG DAILY 03/15 1624 AC 03/17 PO 0842 Methadone HCl 105 MG DAILY 03/16 1215 AC 03/17 PO 1234 Nystatin 1 DRAKE BID PRN 03/15 1630 03/15 TOP 2319 Polyethylene Glycol 17 GM DAILY NEEDED PRN 03/16 1145 AC PO Senna/Docusate Sodium 1 TAB BID PRN 03/16 1145 AC PO Sodium Chloride 1,000 ML Q20H 03/17 0915 AC 03/17 IV 03/18 0514 0924 Sodium Chloride 1,000 ML ONCE ONE 03/16 0945 DC 03/16 IV 03/16 2304 1031 Zinc Oxide 1 DRAKE BID 03/17 1303 03/17 TOP 1400 Lab Work: Laboratory Tests 03/17 0718 Chemistry Sodium (137 - 145 mmol/L) 133 L Potassium (3.5 - 5.1 mmol/L) 3.5 Chloride (98 - 107 mmol/L) 93 L Carbon Dioxide (22 - 30 mmol/L) 27 Anion Gap (5 - 16) 13 BUN (9 - 20 mg/dL) 24 H Creatinine (0.7 - 1.2 mg/dL) 1.2 Estimated GFR (>60 ml/min) 60 BUN/Creatinine Ratio (7 - 25 %) 20.0 Total Bilirubin (0.2 - 1.3 mg/dL) 0.4 Direct Bilirubin (< 0.4 mg/dL) 0.3 AST (17 - 59 U/L) 81 H ALT (21 - 72 U/L) 108 H Alkaline Phosphatase (< 127 U/L) 123 Creatine Kinase (55 - 170 U/L) 836 H Total Protein (6.3 - 8.2 g/dL) 6.1 L Albumin (3.5 - 5.0 g/dL) 3.2 L Vitals: Vital Signs Date Time Temp Pulse Resp B/P B/P Pulse O2 O2 Flow FiO2 Mean Ox Delivery Rate 03/17 1355 98.7 60 20 138/60 91 03/17 1220 Room Air 03/17 0842 78 142/62 03/17 0637 98.6 78 20 158/62 94 Room Air 03/17 0031 98.7 03/17 0015 98.7 03/16 2225 100.7 03/16 2212 100.7 76 20 166/60 93 Room Air 03/16 1600 Room Air Intake & Output 03/17 1600 03/17 0800 03/17 0000 Intake Total 300 950 Output Total Balance 300 950 Intake, IV 200 600 Intake, Oral 100 350 Number 0 Bowel Movements Mental Status Exam: Appearance: Patient is a pleasant, well nourished, well groomed elderly male Psychomotor: No abnormal movements, motor tics or muscle clonus observed. Speech: Nonpressured non-slurred w/ appropriate tone, volume and rhythm. Mood/Affect: Moderately anxious w/ full affect. Good sense of humor. Thought Process: Generally linear, easily confused by questions and compound instructions. Thought Content: Denies SI/HI, AH/VH, delusions and depersonalization Cognition: Alert, oriented x3, able to hold attention. Memory and recall notably impaired. Unable to recall 3 objects of MMSE. MMSE Score: 23 Assessment/ Plan: 1. AMS/ Seratonin Syndrome - Recommend continue to hold Cimbalta and Paxil. - Recommend continue supportive care. - Monitor EKG for QT prolongation. Most recently 474 trending down from 477. 2. Unspecified Depression - Recommend holding all SSRI treatment until improvement and resolution of AMS. - Encourage patient to maintain geriatric evaluation follow up appointment on . - Recommend discussing outpatient psychotherapy options at time closer to discharge. Code: Full Code DVT Prophylaxis: Heparin Diet: Full Thank you for the consult. (Morr STUDENT,Samira) Assessment and Plan: Please monitor for SSRI discontinuation syndrome, and advise. We will continue to followmalong with you, and expect to visit the patient on 03/18/17. (Rangel GARCIA,Yung Lee)
[2017-03-17 22:25] VITALS: BP 148/72
[2017-03-18 07:08] VITALS: BP 128/64
--- NOTE | 2017-03-18 07:39 | PN- Housestaff ---
Subjective Follow-up For: AMS 2/2 to medications, serotonin syndrome. Abnormal EKG Transaminitis Opioid dependence Tele-Events Since Last Visit: Off telemetry Subjective: Patient was seen and examined today. Patient states he feels much better today. Patient states he continues to have muscle twitches and tremor. Continues to have sweating and feeling feverish. Patient notes he has been feeling like he has "electric shocks" over his neck and face- states these have been going on for years. Patient also notes that over the past few months he has been increasingly anxious to take a shower. Patient denies any chest pain, palpitations, SOB, dizziness, lightheadedness, n/ v. States he now feels constipated and has some abdominal discomfort. Patient worked with PT yesterday and walked around. Reports fatigue. Patient's was at bedside this morning. Spoke to her extensively of the current plan. She and the patient would like to be speak to psychiatry this morning. Review of Systems Constitutional: Reports: diaphoresis, fever, malaise, weakness. Cardiovascular: Reports: no symptoms. Respiratory: Reports: no symptoms. Gastrointestinal: Reports: see HPI, constipation. Genitourinary: Reports: no symptoms. Musculoskeletal: Reports: no symptoms. Skin: Reports: no symptoms. Neurological/Psychological: Reports: tremors. Hematologic/Endocrine: Reports: no symptoms. Objective Last 24 Hrs of Vital Signs/I&O Vital Signs Date Time Temp Pulse Resp B/P B/P Pulse O2 O2 Flow FiO2 Mean Ox Delivery Rate 03/18 0708 98.4 62 20 128/64 95 Room Air 03/17 2225 98.3 68 20 148/72 92 Room Air 03/17 1355 98.7 60 20 138/60 91 03/17 1220 Room Air Physical Exam General Appearance: Alert, Oriented X3, Cooperative, No Acute Distress HEENT: Atraumatic, PERRLA, EOMI, Mucous Membr. moist/pink Cardiovascular: Regular Rate, Normal S1, Normal S2, No Murmurs Lungs: Normal Air Movement Abdomen: Normal Bowel Sounds, Soft, No Tenderness Neurological: Normal Speech, Strength at 5/5 X4 Ext, Normal Tone, Sensation Intact, Cranial Nerves 3-12 NL, Reflexes 2+, patient continues to have muscle twitches Extremities: No Clubbing, No Cyanosis, No Edema, Normal Pulses, No Tenderness/ Swelling Vascular: Normal Pulses, Pulses Symmetrical Current Medications: Current Medications Sig/Radha Start time Last Medication Dose Route Stop Time Status Admin Aspirin Buffered 81 MG DAILY 03/15 1615 AC 03/17 PO 0842 Chlorthalidone 25 MG DAILY 03/15 1616 AC 03/17 PO 0843 Diltiazem HCl 240 MG DAILY 03/16 1000 AC 03/17 PO 0842 Guaifenesin 600 MG Q12 03/17 1615 AC 03/17 PO 1614 Heparin Sodium 5,000 UNIT Q8 03/15 1701 AC 03/18 (Porcine) SC 0607 Insulin Aspart 0 TIDAC/HS 03/16 1700 AC 03/18 SC 0846 Insulin Detemir 15 UNITS BID 03/16 2200 AC 03/18 SC 0846 Levothyroxine Sodium 0.224 MG DAILY AC 03/16 0700 AC 03/18 PO 0606 Losartan Potassium 25 MG DAILY 03/15 1624 AC 03/17 PO 0842 Methadone HCl 105 MG DAILY 03/16 1215 AC 03/17 PO 1234 Nystatin 1 DRAKE BID PRN 03/15 1630 AC 03/15 TOP 2319 Polyethylene Glycol 17 GM DAILY NEEDED PRN 03/16 1145 AC PO Senna/Docusate Sodium 1 TAB BID PRN 03/16 1145 AC PO Sodium Chloride 1,000 ML Q20H 03/18 0930 AC IV 03/19 0529 Sodium Chloride 1,000 ML Q20H 03/17 0915 DC / IV 03/18 0514 0924 Zinc Oxide 1 DRAKE BID 03/17 1303 AC 03/17 TOP 2218 Last 24 Hrs of Lab/Wero Results Last 24 Hrs of Labs/Mics: Laboratory Tests 03/18/17 0640: Anion Gap 10, Estimated GFR 60, BUN/Creatinine Ratio 20.8, Total Bilirubin 0.4, Direct Bilirubin 0.3, AST 70 H, ALT 85 H, Alkaline Phosphatase 113, Creatine Kinase 905 H, Total Protein 5.8 L, Albumin 3.0 L Assessment/Plan Assessment: Patient is a 71-year-old male with past medical history of hypertension, diabetes, hyperlipidemia, hypothyroidism, chronic low back pain with neurostimulator, history of opiate abuse currently in a methadone program presenting this admission with a one-week history of confusion, sweating, muscle rigidity, upper extremity jerking movements and tremor after being started on Cymbalta 60 mg daily. Patient on admission was found to have elevated blood pressure, labs significant for sodium of 131, CPK of 497, EKG showing EKG abnormalities with troponins of 0.06. Chest x-ray and head CT were negative for acute pathology. Patient had elevated transaminases. U tox was positive for methadone. Patient was worked up for possible causes of AMS including infectious etiologies , electrolyte abnormalities, toxic causes, and neurocardiac etiologies. Based on patient's presentation of muscle rigidity, sweating, tremor with the recent increase in cymbalta in conjunction with paxil, patient's symptoms are likely attributed to serotonin syndrome. Today (03/18): Patient's mental status has improved. Patient continues to have tremor and muscle twitching. Patient remains afebrile however reports diaphoresis. Patient currently saturating at 95% on room air. Patient's labs are significant for uptrending CPK now in the 900s despite receiving IV hydration. Sodium has improved with IV hydration. The management of Serotonin syndrome includes maintaining oxygen saturation of > 93%, IV fluid hydration and benzos for sedation and treatment of tremor. Patient however has been on methadone for chronic back pain and has previously been drowsy, lethargic and confused which has prompted to hold off on benzos. Spoke to psychiatry today about potentially using them for a short duration to alleviate the muscle tremor and twitching as patient's CPK continues to rise despite IV fluid hydration. Patient is hesitant to try clonopin at this time as his daughter had an adverse reaction to it in the past. Patient himself has never been on the medication. Patient was seen by cardiology for abnormal EKGs. Patient was cleared by cardiology with no further intervention necessary. Patient is to continue his antihypertensive medications and aspirin. Pravastatin will be continued once patient's symptoms and LFTs have improved. Patient was seen and evaluated by neurology for AMS likely serotonin syndrome. Per neurology no further interventions are needed as patient's symptoms are improving. Patient has uncontrolled diabetes. Patient was seen by endocrinology with recommendations to continue levemir and novolog sliding scale. Patient is on methadone. The methadone clinic he attends was called to confirm his medication dosage. Patient filled the methadone on 03/12 and has enough medication until 03/18. Patient takes 105 mg methadone daily. Problems: 1. AMS, likely serotonin syndrome 2. Boderline ECG changes 3. Rhabdomyolysis 4. Transaminitis 5. Uncontrolled DM Plan: Patient admitted to telemetry Cardiology, Endocrinology, Neurology and Psychiatry on board. Appreciate Recommendations Cymbalta and Paxil held Continued aspirin Continue Levemir 15 units twice a day Accuchecks TIDAC and qHS Novolog SS TIDAC and qHS Normal saline IV @ 50 cc/hr for hyponatremia and rhabdomyolysis Continue synthroid, losartan, diltiazem, chlorothalidone Continue methadone 105 mg daily Monitor Sodium, Creatinine, and CPK Diet: Diabetic diet Code: full code DVT PPx: ALPs, Heparin SC Problem List: 1. Altered mental status Pain Ratin Pain Location: back pain Pain Goal: Pain 4 or less Pain Plan: methadone Tomorrow's Labs & Rationales: bep, cpk
--- NOTE | 2017-03-18 08:39 | PN- Diabetes ---
See Addendum Assessment/Plan Assessment: 71-year-old gentleman with past medical history significant for hypertension, diabetes type 2, hyperlipidemia, and hypothyroidism, chronic low back pain (on a stimulator), history of opiate abuse on methadone program. He was brought in by his due to sudden onset altered mental status since Thursday. At home, he was on Humalog 75/25 mix 30 units before breakfast and before dinner. He was put on Levemir 15 units twice a day, Novolog coverage before meals and Novolog coverage at bedtime. His FSGs were 189, 137 and 180. Patient reported that he has been feeling anxious. Psychiatric team saw him on . CPK has been rising. His CPK level was 905 this morning. Plan: His glucose level has been relatively stable; he will continue the current insulin regimen. I will recommend that the psychiatric team should be contacted again as he still feels anxious. will follow. Subjective Subjective: He stated that he has been feeling anxious. Objective Last 24 Hrs of Vital Signs/I&O Vital Signs Date Time Temp Pulse Resp B/P B/P Pulse O2 O2 Flow FiO2 Mean Ox Delivery Rate 03/18 0708 98.4 62 20 128/64 95 Room Air 03/17 2225 98.3 68 20 148/72 92 Room Air 03/17 1355 98.7 60 20 138/60 91 03/17 1220 Room Air 03/17 0842 78 142/62 Findings Pertinent Lab/Wero Results: Laboratory Tests 03/18 0640 Chemistry Sodium (137 - 145 mmol/L) 135 L Potassium (3.5 - 5.1 mmol/L) 3.6 Chloride (98 - 107 mmol/L) 96 L Carbon Dioxide (22 - 30 mmol/L) 29 Anion Gap (5 - 16) 10 BUN (9 - 20 mg/dL) 25 H Creatinine (0.7 - 1.2 mg/dL) 1.2 Estimated GFR (>60 ml/min) 60 BUN/Creatinine Ratio (7 - 25 %) 20.8 Total Bilirubin (0.2 - 1.3 mg/dL) 0.4 Direct Bilirubin (< 0.4 mg/dL) 0.3 AST (17 - 59 U/L) 70 H ALT (21 - 72 U/L) 85 H Alkaline Phosphatase (< 127 U/L) 113 Creatine Kinase (55 - 170 U/L) 905 H Total Protein (6.3 - 8.2 g/dL) 5.8 L Albumin (3.5 - 5.0 g/dL) 3.0 L
[2017-03-18 14:47] VITALS: BP 116/60
--- NOTE | 2017-03-18 16:12 | PN- Psychiatry ---
Assessment/Plan Impression: The patient is in agreement to come to an intake appointment at [facility] outpatient psychiatry. We will make that appointment at the appropriate time. We suggest avoiding any serotonin modulator's, such as SSRI or SNRI medications. There is a possibility that he may not need to restart these medications, and we would like to evaluate that need on an outpatient basis. SSRI and SNRI medications, commonly called antidepressants, but also used for treating anxiety and panic, such as duloxetine/Cymbalta or paroxetine/Paxil, can have a discontinuation syndrome. Units usual mild form, and presents as flulike symptoms and alterations in mood, sleep, sensory input, and usually resolve by themselves. A more serious version may require restarting of one of these medications, not necessarily the ones that the patient was on, for short-term relief. Please advise if this syndrome occurs. The patient is expressing some fear of taking any of these medications for anxiety. He is also expressing a phobia about taking a shower, which had occurred at home for his . She reports that he began a "slow decline since 2 years ago, including memory loss, being disoriented at times, not being able to follow conversations, being isolated and not social." Interviewed alone, the patient reports other perceptions, namely that some of this is inattention on his part, and tuning out conversations in the home. He reports a family history includes his grandfather having dementia, and also diaphoresis, which the patient has been experiencing. He and his , Alee, report that the patient's mother and one brother, both of whom smoked, of cancer. The mother had depression. There is another brother who also of cancer. When the patient began a new where a methadone clinic, the psychiatrist stopped Lexapro, for unknown reasons, and started Paxil. The patient reports that he took the Paxil in the morning, and slept most of the day. He states that these medications were started for anxiety. He denies any other treatment or medications, but favors the idea of talk therapy. Suggestion: 1. Avoid benzodiazepines if possible, as these can lead to increased risk for falls, and cause or exacerbate delirium in the elderly. We understand that these might be considered for clonus; consider using clonazepam at the lowest possible dose for the briefest time, until this resolves. 2. Avoid selective serotonin reuptake inhibitors/SSRIs, in serotonin norepinephrine reuptake inhibitors/SNRIs. 3. Advise if the patient is experiencing discontinuation syndrome, as described above. 4. The patient has asked for a referral to the pain clinic in this building. He would like to find somebody who can modify his opiate pain medication. Thank you for this consult. We will continue to follow along with you, and expect to offer the patient appointment for outpatient psychiatry when his discharge disposition is known. Subjective Subjective: The patient is alert and oriented to person, place, month, year, reason for hospitalization, but not day or date. He is able to recall 2 over 3 objects from the Mini-Mental Status exam yesterday. He reports that his memory is good today. He denies auditory or visual hallucinations, and presents no mica delusions. He endorses hopelessness, helplessness (when his is sick or is threatening to leave), sometimes worthlessness and guilt feelings related to not being able to exist without taking medications. He reports, "my blames me for my condition." He scales his depression as 3-5/10; his anxiety as 6/10; 10/ 10 would be the worst. He currently denies suicidal or homicidal ideation, and denies any history of suicide attempt. He does state that he had suicidal ideation 5-6 months ago, but this resolved on its own. The patient verbalizes understanding of a safety plan, including calling 911 if suicidal ideation returns. He states that he has not had an alcohol drink and 35 years. 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 He reports that with difficult access to prescribed opiates, he sought drugs on the street. He has been in 6 drug rehabilitations the last in 1990 area and he has been active in Narcotics Anonymous and Alcoholics Anonymous. He does not currently have a sponsor, but has sponsored many others, but has since disengaged from this activity. He reports that he does sleep, essentially passing out. Review of Systems Constitutional: Reports: diaphoresis. Neurological/Psychological: Reports: anxiety (no clonus noted during this in), depressed. Objective Last 24 Hrs of Vital Signs/I&O Vital Signs Date Time Temp Pulse Resp B/P B/P Pulse O2 O2 Flow FiO2 Mean Ox Delivery Rate 03/18 1447 98.0 65 20 116/60 93 Room Air 03/18 1028 126/70 03/18 0708 98.4 62 20 128/64 95 Room Air 03/17 2225 98.3 68 20 148/72 92 Room Air Intake & Output 03/18 1600 03/18 0800 03/18 0000 Intake Total 700 Output Total 1100 Balance -400 Intake, IV 300 Intake, Oral 400 Output, Urine 1100 Physical Exam: Not performed Physical Exam General Appearance: no apparent distress, alert, awake, comfortable, obese Neurologic/Psychiatric: awake, alert, oriented x 3 Current Medications: Current Medications Sig/Radha Start time Last Medication Dose Route Stop Time Status Admin Aspirin Buffered 81 MG DAILY 03/15 1615 AC 03/18 PO 1028 Chlorthalidone 25 MG DAILY 03/15 1616 AC 03/18 PO 1029 Diltiazem HCl 240 MG DAILY 03/16 1000 AC 03/18 PO 1028 Guaifenesin 600 MG Q12 03/17 1615 AC 03/18 PO 1028 Heparin Sodium 5,000 UNIT Q8 03/15 1701 AC 03/18 (Porcine) SC 1451 Insulin Aspart 0 TIDAC/HS 03/16 1700 AC 03/18 SC 1216 Insulin Detemir 15 UNITS BID 03/16 2200 AC 03/18 SC 0846 Levothyroxine Sodium 0.224 MG DAILY AC 03/16 0700 AC 03/18 PO 0606 Losartan Potassium 25 MG DAILY 03/15 1624 AC 03/18 PO 1028 Methadone HCl 105 MG DAILY 03/16 1215 AC 03/18 PO 1027 Nystatin 1 DRKAE BID PRN 03/15 1630 03/15 TOP 2319 Polyethylene Glycol 17 GM DAILY NEEDED PRN 03/16 1145 AC PO Senna/Docusate Sodium 1 TAB BID PRN 03/16 1145 AC PO Sodium Chloride 1,000 ML Q20H 03/18 0930 AC 03/18 IV 03/19 0529 1029 Sodium Chloride 1,000 ML Q20H 03/17 0915 DC / IV 03/18 0514 0924 Zinc Oxide 1 DRAKE BID 03/17 1303 AC 03/18 TOP 1029 Results Last 24 Hrs of Labs/Mics: Laboratory Tests 03/18 0640 Chemistry Sodium (137 - 145 mmol/L) 135 L Potassium (3.5 - 5.1 mmol/L) 3.6 Chloride (98 - 107 mmol/L) 96 L Carbon Dioxide (22 - 30 mmol/L) 29 Anion Gap (5 - 16) 10 BUN (9 - 20 mg/dL) 25 H Creatinine (0.7 - 1.2 mg/dL) 1.2 Estimated GFR (>60 ml/min) 60 BUN/Creatinine Ratio (7 - 25 %) 20.8 Total Bilirubin (0.2 - 1.3 mg/dL) 0.4 Direct Bilirubin (< 0.4 mg/dL) 0.3 AST (17 - 59 U/L) 70 H ALT (21 - 72 U/L) 85 H Alkaline Phosphatase (< 127 U/L) 113 Creatine Kinase (55 - 170 U/L) 905 H Total Protein (6.3 - 8.2 g/dL) 5.8 L Albumin (3.5 - 5.0 g/dL) 3.0 L Recent Imaging Studies: PATIENT: MIGUEL ANGEL CARRERA PRESENT AGE: 71 PATIENT ACCOUNT NO: [id number] : 46 LOCATION: [facility] ORDERING PHYSICIAN: Isabella SCHWARTZ SERVICE DATE: 03/15/17 EXAM TYPE: CAT - CT HEAD WO IV CONTRAST EXAMINATION: CT HEAD WITHOUT CONTRAST CLINICAL INFORMATION: Altered mental status. Confusion. COMPARISON: 06/13/15. TECHNIQUE: Contiguous axial imaging was performed from the skull base to vertex without intravenous administration of contrast. DLP: 618.71 mGy-cm FINDINGS: There is stable appearance of mild diffuse cerebral atrophy with prominence of the lateral ventricles and cortical sulci. There is no evidence of acute intracranial hemorrhage or territorial infarction. No abnormal mass effect or midline shift is seen. Allison to white matter differentiation is well preserved. No extra-axial fluid collections are identified. The ventricles are normal in size. There is no abnormal attenuation within the brain parenchyma. The osseous structures and soft tissues are normal. The mastoid air cells and visualized portions of the paranasal sinuses are well aerated. IMPRESSION: No acute intracranial pathology. DICTATED BY: Ayde Talbot MD DATE/TIME DICTATED:03/15/171054 TEST DIRECTOR:STEPHANY DATE/TIME TRANSCRIBED:03/15/171054 CONFIDENTIAL, DO NOT COPY WITHOUT APPROPRIATE AUTHORIZATION. <Electronically signed in Other Vendor System> SIGNED BY: Ayde Talbot MD [id number] PATIENT: MIGUEL ANGEL CARRERA PRESENT AGE: 71 PATIENT ACCOUNT NO: [id number] : 46 LOCATION: [facility] ORDERING PHYSICIAN: Isabella SCHWARTZ SERVICE DATE: 03/15/17 EXAM TYPE: RAD - XRY-CHEST XRAY, TWO VIEWS EXAMINATION: CR CHEST CLINICAL INFORMATION: Acute mental status change. Weakness. Hypoxia. Rule out pneumonia. COMPARISON: Chest x-ray dated 01/30/2015. CT scan of the chest dated 08/23/2014. TECHNIQUE: 2 views of the chest were obtained. FINDINGS: The cardiomediastinal silhouette is within normal limits in size. Ectasia and tortuosity of the aorta and great vessels is again seen. Asymmetric elevation of the right hemidiaphragm is again noted without focal pulmonary process seen. No consolidation, effusion or pneumothorax is noted. Posterior spinal stimulator wires are partially included. Osteopenia, mild loss in height of lower thoracic vertebral bodies and and multilevel moderate vertebral spurring in the lower thoracic spine again seen. IMPRESSION: 1. Chronic elevation of right hemidiaphragm, unchanged. 2. No acute cardiopulmonary process seen. DICTATED BY: Suzette Claudio MD DATE/TIME DICTATED:03/15/171113 TEST DIRECTOR:STEPHANY DATE/TIME TRANSCRIBED:03/15/171113 CONFIDENTIAL, DO NOT COPY WITHOUT APPROPRIATE AUTHORIZATION. <Electronically signed in Other Vendor System> SIGNED BY: Suzette Claudio MD [id number]
[2017-03-18 22:08] VITALS: BP 120/60
[2017-03-19 06:56] VITALS: BP 160/80
--- NOTE | 2017-03-19 07:36 | PN- Housestaff ---
See Addendum Subjective Follow-up For: AMS 2/2 to medications, serotonin syndrome. Abnormal EKG Transaminitis Opioid dependence Subjective: Patient was seen and examined. Patient today feels much better. Patient reports that the muscle twitching has greatly decreased. Patient reports feeling happy however anxious to be discharged as he is unsure of how this health will fair. Denies SI/HI. Patient reports sweating. Denies fever/chills, chest pain, palpitations, nausea/vomiting, dysuria/hematuria. Patient had a bowel movement overnight. Denies bloody stools. No acute events overnight. Review of Systems Constitutional: Reports: no symptoms. Cardiovascular: Reports: no symptoms. Respiratory: Reports: no symptoms. Gastrointestinal: Reports: no symptoms. Genitourinary: Reports: no symptoms. Musculoskeletal: Reports: no symptoms. Skin: Reports: no symptoms. Neurological/Psychological: Reports: anxiety, tremors. Objective Last 24 Hrs of Vital Signs/I&O Vital Signs Date Time Temp Pulse Resp B/P B/P Pulse O2 O2 Flow FiO2 Mean Ox Delivery Rate 03/19 0907 64 160/80 03/19 0830 Room Air 03/19 0656 97.8 64 20 160/80 95 Room Air 03/18 2208 98.5 62 20 120/60 93 Room Air Intake & Output 03/19 1600 03/19 0800 03/19 0000 Intake Total 1000 120 180 Output Total 1200 Balance -200 120 180 Intake, IV 400 150 Intake, Oral 600 120 30 Number 1 Bowel Movements Output, Urine 1200 Physical Exam General Appearance: Alert, Oriented X3, Cooperative Other Physical Findings: HEENT: Atraumatic, PERRLA, EOMI, Mucous Membr. moist/pink Cardiovascular: Regular Rate, Normal S1, Normal S2, No Murmurs Lungs: Normal Air Movement Abdomen: Normal Bowel Sounds, Soft, No Tenderness Neurological: Normal Speech, Strength at 5/5 X4 Ext, Normal Tone, Sensation Intact, Cranial Nerves 3-12 NL, Reflexes 2+, decreased muscle twitching, improved recall 3 objects on Mini-Mental Status exam Extremities: No Clubbing, No Cyanosis, No Edema, Normal Pulses, No Tenderness/ Swelling Vascular: Normal Pulses, Pulses Symmetrical Current Medications: Current Medications Sig/Radha Start time Last Medication Dose Route Stop Time Status Admin Aspirin Buffered 81 MG DAILY 03/15 1615 DCD 02/08 PO 0907 Chlorthalidone 25 MG DAILY 03/15 1616 DCD 03/19 PO 0907 Diltiazem HCl 240 MG DAILY 03/16 1000 DCD 03/19 PO 0907 Guaifenesin 600 MG Q12 03/17 1615 DCD 03/19 PO 0906 Heparin Sodium 5,000 UNIT Q8 03/15 1701 DCD 03/18 (Porcine) SC 2205 Insulin Aspart 0 TIDAC/HS 03/16 1700 DCD 03/19 SC 1254 Insulin Detemir 18 UNITS BID 03/19 1000 DCD 03/19 SC 0903 Insulin Detemir 15 UNITS BID 03/16 2200 DC 03/18 SC 2205 Levothyroxine Sodium 0.224 MG DAILY AC 03/16 0700 DCD 03/19 PO 0622 Losartan Potassium 25 MG DAILY 03/15 1624 DCD 03/19 PO 0907 Methadone HCl 105 MG DAILY 03/16 1215 DCD 03/19 PO 0906 Nystatin 1 DRAKE BID PRN 03/15 1630 DCD 03/15 TOP 2319 Polyethylene Glycol 17 GM DAILY NEEDED PRN 03/16 1145 DCD PO Senna/Docusate Sodium 1 TAB BID PRN 03/16 1145 DCD 03/19 PO 0908 Sodium Chloride 1,000 ML Q20H 03/18 0930 DC 03/18 IV 03/19 0529 1029 Zinc Oxide 1 DRAKE BID 03/17 1303 DCD 03/18 TOP 2206 Last 24 Hrs of Lab/Wero Results Last 24 Hrs of Labs/Mics: Laboratory Tests 03/19/17 0625: Anion Gap 10, Estimated GFR > 60, BUN/Creatinine Ratio 20.0, Creatine Kinase 673 H Assessment/Plan Assessment: Patient is a 71-year-old male with past medical history of hypertension, diabetes, hyperlipidemia, hypothyroidism, chronic low back pain with neurostimulator, history of opiate abuse currently in a methadone program presenting this admission with a one-week history of confusion, sweating, muscle rigidity, upper extremity jerking movements and tremor after being started on Cymbalta 60 mg daily. Patient on admission was found to have elevated blood pressure, labs significant for sodium of 131, CPK of 497, EKG showing EKG abnormalities with troponins of 0.06. Chest x-ray and head CT were negative for acute pathology. Patient had elevated transaminases. U tox was positive for methadone. Patient was worked up for possible causes of AMS including infectious etiologies , electrolyte abnormalities, toxic causes, and neurocardiac etiologies. Based on patient's presentation of muscle rigidity, sweating, tremor with the recent increase in cymbalta in conjunction with paxil, patient's symptoms are likely attributed to serotonin syndrome. Today (03/19): Patient's mental status has improved. Patient continues to have tremor and muscle twitching. Patient remains afebrile however reports diaphoresis. Patient currently saturating at 95% on room air. Patient's labs are significant for decreasing CPK with IV fluid hydration. Patient is stable for discharge today. Per psychiatry patient will remain off of SSRIs at this time. Patient is to follow-up with his primary care physician and have repeat blood work to follow up CPK levels and restart SSRIs at the discretion of his outpatient psychiatrist and primary care physician. Patient should follow-up with his manager engine as well. Patient and his note that they would like to switch their pain management to the [facility]. The management of Serotonin syndrome includes maintaining oxygen saturation of > 93%, IV fluid hydration and benzos for sedation and treatment of tremor. Patient however has been on methadone for chronic back pain and has previously been drowsy, lethargic and confused which has prompted to hold off on benzos. As patient's CPK decreased today without the use benzos and as patient was hesitant to use benzos they were held during this admission. Patient was seen by cardiology for abnormal EKGs. Patient was cleared by cardiology with no further intervention necessary. Patient is to continue his antihypertensive medications and aspirin. Pravastatin will be continued once patient's symptoms and LFTs have improved. Patient was seen and evaluated by neurology for AMS likely serotonin syndrome. Per neurology no further interventions are needed as patient's symptoms are improving. Patient has uncontrolled diabetes. Patient was seen by endocrinology with recommendations to continue levemir and novolog sliding scale. Patient is on methadone. The methadone clinic he attends was called to confirm his medication dosage. Patient filled the methadone on 03/12 and has enough medication until 03/18. Patient takes 105 mg methadone daily. Patient reports having 4 more days of methadone which are enough doses until his next visit to the pain clinic. Problems: 1. AMS, likely serotonin syndrome 2. Boderline ECG changes 3. Rhabdomyolysis 4. Transaminitis 5. Uncontrolled DM Plan: Patient admitted to telemetry Cardiology, Endocrinology, Neurology and Psychiatry on board. Appreciate Recommendations Cymbalta and Paxil held Continued aspirin Continue Levemir 15 units twice a day Accuchecks TIDAC and qHS Novolog SS TIDAC and qHS Normal saline IV @ 50 cc/hr for hyponatremia and rhabdomyolysis Continue synthroid, losartan, diltiazem, chlorothalidone Continue methadone 105 mg daily Diet: Diabetic diet Code: full code DVT PPx: ALPs, Heparin SC Disposition: Discharge home today with close follow-up with primary care physician, psychiatry, pain clinic, cardiology. Problem List: 1. Altered mental status 2. Acute electrocardiogram changes Pain Ratin Pain Location: Back Pain Goal: Remain pain free Pain Plan: Methadone Tomorrow's Labs & Rationales: None discharged today
[2017-03-19 09:07] VITALS: BP 160/80
--- NOTE | 2017-03-19 10:07 | PN- Diabetes ---
Assessment/Plan Assessment: 71-year-old gentleman with past medical history significant for hypertension, diabetes type 2, hyperlipidemia, and hypothyroidism, chronic low back pain (on a stimulator), history of opiate abuse on methadone program. He was brought in by his due to sudden onset altered mental status since Thursday. At home, he was on Humalog 75/25 mix 30 units before breakfast and before dinner. He was put on Levemir 15 units twice a day, Novolog coverage before meals and Novolog coverage at bedtime. His FSGs were 180, 238, 116, 145 and 201. Plan: 1. increase Levemir to 18 units twice a day; 2. continue the current Novolog coverage before meals and Novolog coverage at bedtime; 3. monitor FSGs. will follow. Subjective Subjective: He feels better this morning. Objective Last 24 Hrs of Vital Signs/I&O Vital Signs Date Time Temp Pulse Resp B/P B/P Pulse O2 O2 Flow FiO2 Mean Ox Delivery Rate 03/19 0907 64 160/80 03/19 0656 97.8 64 20 160/80 95 Room Air 03/18 2208 98.5 62 20 120/60 93 Room Air 03/18 1447 98.0 65 20 116/60 93 Room Air 03/18 1028 126/70 Intake & Output 03/19 1600 03/19 0800 03/19 0000 Intake Total 120 180 Output Total Balance 120 180 Intake, IV 150 Intake, Oral 120 30 Number 1 Bowel Movements Findings Pertinent Lab/Wero Results: Laboratory Tests 03/19 0625 Chemistry Sodium (137 - 145 mmol/L) 134 L Potassium (3.5 - 5.1 mmol/L) 3.7 Chloride (98 - 107 mmol/L) 96 L Carbon Dioxide (22 - 30 mmol/L) 29 Anion Gap (5 - 16) 10 BUN (9 - 20 mg/dL) 20 Creatinine (0.7 - 1.2 mg/dL) 1.0 Estimated GFR (>60 ml/min) > 60 BUN/Creatinine Ratio (7 - 25 %) 20.0 Creatine Kinase (55 - 170 U/L) 673 H
--- NOTE | 2017-03-19 10:51 | Discharge Summary ---
Visit Information Visit Dates Admission Date: 03/15/17 Discharge Date: 03/19/17 Hospital Course Course Attending Physician: Kwabena Baker MD Primary Care Physician: Rosas Felder MD Consulting Request: 1 Consulting Specialty: Cardiology Consulting Physician: Dr. Gonzales Reason for Consult: Abnormal EKG changes Consulting Request: 2 Consulting Specialty: Neurology Consulting Physician: Dr. Shabazz Reason for Consult: AMS Consulting Request: 3 Consulting Specialty: Psychiatry Hospital Course: Patient is a 71-year-old male with past medical history of hypertension, diabetes, hyperlipidemia, hypothyroidism, depression, chronic low back pain with neurostimulator, and history of opiate abuse currently in a methadone program presenting this admission with a one-week history of confusion, sweating, muscle rigidity, upper extremity jerking movements and tremor after being started on Cymbalta 60 mg daily. Patient on admission was found to have elevated blood pressure, labs significant for sodium of 131, CPK of 497, EKG showing nonspecific T-wave abnormalities with troponins of 0.06. Chest x-ray and head CT were negative for acute pathology. Patient had elevated transaminases. U tox was positive for methadone. Patient was admitted to the telemetry floor for management of the followin. AMS Secondary to Serotonin Syndrome Patient was worked up for possible causes of AMS including infectious etiologies , electrolyte abnormalities, toxic causes, and neurocardiac etiologies. Based on patient's presentation of muscle rigidity, sweating, tremor with the recent increase in cymbalta in conjunction with paxil, patient's symptoms are likely attributed to serotonin syndrome. Patient's symptoms improved with discontinuation of the SSRI's and IV fluid hydration. Patient was seen by neurology with no further interventions recommended. Patient was seen by psychiatry. Patient denies SI/HI during this admission * Follow-up CPK for rhabdomylosis * Outpatient psychiatry follow-up * Introduction of SSRI at the discretion of psychiatry and primary care physician 2. Abnormal EKG changes and history of HTN Patient was seen by cardiology for abnormal EKGs. No events on telemetry. Patient was cleared by cardiology with no further intervention necessary. * Patient is to continue his antihypertensive medications and aspirin * Outpatient follow-up with cardiology on 03/20/2017 3. Uncontrolled diabetes Patient is on Humalog 75:25 mix 30 units twice daily. Patient was seen by endocrinology and was was placed on NovoLog sliding scale and Levemir during this admission. * Patient is to continue Humalog 75:25 mix 30 units twice daily before breakfast and before dinner * Patient to follow-up with endocrinology 4. Chronic back pain with neuro stimulator in place and on methadone Patient is seen at [facility] for methadone. Patient is on 105 mg of methadone daily. Methadone was last filled on 03/12. Patient was continued on methadone after confirming with the clinic. Patient has 4 more days of methadone. * Patient and his would like to move his pain management to the [facility]. Have been seen in the past at the [facility]. Will need a referal for Dr. Peacock from his pcp. * Patient will follow up at [facility] in the interim Diet: Diabetic diet Code: full code DVT PPx: ALPs, Heparin SC Disposition: Discharge home today with close follow-up with primary care physician, psychiatry, pain clinic, cardiology. Allergies: Coded Allergies: Penicillins (Severe, ANAPHYLAXIS 04/10/15) Pertinent Lab Results: SERVICE DATE: 03/15/17 EXAM TYPE: RAD - XRY-CHEST XRAY, TWO VIEWS EXAMINATION: CR CHEST CLINICAL INFORMATION: Acute mental status change. Weakness. Hypoxia. Rule out pneumonia. COMPARISON: Chest x-ray dated 01/30/2015. CT scan of the chest dated 08/23/2014. TECHNIQUE: 2 views of the chest were obtained. FINDINGS: The cardiomediastinal silhouette is within normal limits in size. Ectasia and tortuosity of the aorta and great vessels is again seen. Asymmetric elevation of the right hemidiaphragm is again noted without focal pulmonary process seen. No consolidation, effusion or pneumothorax is noted. Posterior spinal stimulator wires are partially included. Osteopenia, mild loss in height of lower thoracic vertebral bodies and and multilevel moderate vertebral spurring in the lower thoracic spine again seen. IMPRESSION: 1. Chronic elevation of right hemidiaphragm, unchanged. 2. No acute cardiopulmonary process seen. SERVICE DATE: 03/15/17 EXAM TYPE: CAT - CT HEAD WO IV CONTRAST EXAMINATION: CT HEAD WITHOUT CONTRAST CLINICAL INFORMATION: Altered mental status. Confusion. COMPARISON: 06/13/15. TECHNIQUE: Contiguous axial imaging was performed from the skull base to vertex without intravenous administration of contrast. DLP: 618.71 mGy-cm FINDINGS: There is stable appearance of mild diffuse cerebral atrophy with prominence of the lateral ventricles and cortical sulci. There is no evidence of acute intracranial hemorrhage or territorial infarction. No abnormal mass effect or midline shift is seen. Allison to white matter differentiation is well preserved. No extra-axial fluid collections are identified. The ventricles are normal in size. There is no abnormal attenuation within the brain parenchyma. The osseous structures and soft tissues are normal. The mastoid air cells and visualized portions of the paranasal sinuses are well aerated. IMPRESSION: No acute intracranial pathology. Disposition Summary Disposition Principal Diagnosis: AMS 2/2 Serotonin Syndrome Additional Diagnosis: Rhabdomyolysis, Uncontrolled Diabetes Mellitis Discharge Disposition: home health services Discharge Instructions General Discharge Information Code Status: Full Code Patient's Diet: Diabetic Diet Patient's Activity: Self-Limited Follow-Up Instructions/Appts: 1. Please follow up with your speed operator on Thursday, 03.20.2017 as scheduled. 2. Please follow up with your pcp within 1 week of discharge. 3. Please have blood work done (CPK level) 4. Please follow up with psychiatry within 1 week of discharge 5. Please stop talking the cymbalta and paxil until you see psychiatry 6. Please speak with your pcp so they may provide you a referal to the [facility] Medications at Discharge Discharge Medications: Stop taking the following medications: Duloxetine HCl (Cymbalta) 60 MG CAPSULE. ORAL DAILY Paroxetine HCl (Paroxetine HCl) 20 MG TABLET ORAL DAILY Qty = 45 Naproxen Sodium (Aleve) 220 MG CAPSULE ORAL as needed for PAIN/INFLAMMATION Continue taking these medications: Diltiazem HCl (Diltiazem 24HR ER) 240 MG CAP.ER.24H 1 Capsule ORAL DAILY Qty = 90 Comments: Last Taken:03/19/17 Time:9AM Azilsartan Med/Chlorthalidone (Edarbyclor 40-25 MG Tablet) 40 MG-25 MG TABLET 1 Tablet ORAL DAILY Comments: NOT TAKEN Insulin NPL/Insulin Lispro (Humalog Mix 75-25 Kwikpen) 100 UNIT/ML (75-25) INSULN.PEN 30 Units Inject into fatty tissue TWICE DAILY Qty = 45 Instructions: Take 30 units before breakfast Take 30 units before dinner Comments: NOT TAKEN Levothyroxine Sodium (Synthroid) 112 MCG TABLET 2 Tablet ORAL DAILY Qty = 180 Comments: Last Taken:03/19/17 Time:6AM Aspirin (Ecotrin*) 81 MG TABLET.DR 1 Tablet ORAL DAILY Comments: Last Taken:03/19/17 Time:9AM Pravastatin Sodium (Pravastatin Sodium) 40 MG TABLET 1 Tablet ORAL Every night Qty = 90 Comments: NOT TAKEN Pantoprazole Sodium (Pantoprazole Sodium) 40 MG TABLET.DR 1 Tablet ORAL DAILY Qty = 90 Methadone HCl (Methadone HCl) 5 MG/5 ML SOLUTION 105 Milligram ORAL DAILY Comments: Last Taken:03/19/17 Time:9AM Ibuprofen (Ibuprofen) 800 MG TABLET 1 Tablet ORAL as needed for PAIN/INFLAMMATION Comments: NOT TAKEN Copies To: Medardo LOZANO,Marty Stanton; Monique De Jesus MD; Emerita LOZANO,Rosas Skelton Attending MD Review Statement Documenting Attending: Kwabena Baker MD Other Findings: The patient was seen and discussed with house staff and family at the time of discharge. He will follow-up with PCP (Magalys Iqbal APRN) next week. Will have repeat CPK level. If returned to normal consider restart low dose of Cymbalta and not increase dose quickly. The patient wishes to switch pain management to [place] and will need referral from PCP. Will continue with pain management in [place] until able to be seen. Also referred to OP psychiatry at [place].
--- NOTE | 2017-03-19 21:55 | PN- Psychiatry ---
Assessment/Plan Impression: The patient will pursue continued psychiatric treatment with Dr. Marty Batres , at [facility] in [place]. The patient is not experieincing discontinuation syndrome from Paxil or Cymbalta. He is not suicidal, not psychotic nor delirious, and is clear for discharge from a psychiatric viewpoint. Suggestion: 1. Avoid selective serotonin reuptake inhibitors/SSRIs, as these are 3A4 inhibitors of methadone. His outpatient seat cover cutter may elect to start an SNRI, such as duloxetine, which does not have this property. 2. The patient has asked for a referral to the pain clinic in this building. The medical team indicates that Dr. Felder can make this referral. 3. Please send discharge summaries to Dr. Monique De Jesus at [facility], and Dr. Marty Batres, c/o [facility] [phone] Thank you for this consult. Subjective Subjective: Alert, oriented, pleasant. No clonic movements noted, but the patient reports a few minor occurrences today. He denies any auditory or visual hallucinations, and present no mica delusions. He denies suicidal or homicidal ideation. Insight and judgement intact. Review of Systems Constitutional: Reports: no symptoms. Neurological/Psychological: Reports: anxiety. Objective Last 24 Hrs of Vital Signs/I&O Vital Signs Date Time Temp Pulse Resp B/P B/P Pulse O2 O2 Flow FiO2 Mean Ox Delivery Rate 03/19 0807 64 160/80 03/19 0830 Room Air 03/19 0656 97.8 64 20 160/80 95 Room Air 03/18 2208 98.5 62 20 120/60 93 Room Air Intake & Output 03/19 1600 03/19 0800 03/19 0000 Intake Total 1000 120 180 Output Total 1200 Balance -200 120 180 Intake, IV 400 150 Intake, Oral 600 120 30 Number 1 Bowel Movements Output, Urine 1200 Physical Exam: Not performed. Physical Exam General Appearance: no apparent distress, alert, awake, comfortable Neurologic/Psychiatric: awake, alert, oriented x 3 Current Medications: Current Medications Sig/Radha Start time Last Medication Dose Route Stop Time Status Admin Aspirin Buffered 81 MG DAILY 03/15 1615 DCD 03/19 PO 09 Chlorthalidone 25 MG DAILY 03/15 1616 DCD 03/19 PO 09 Diltiazem HCl 240 MG DAILY 03/16 1000 DCD 03/19 PO 0907 Guaifenesin 600 MG Q12 03/17 1615 DCD 03/19 PO 0906 Heparin Sodium 5,000 UNIT Q8 03/15 1701 DCD 03/18 (Porcine) SC 2205 Insulin Aspart 0 TIDAC/HS 03/16 1700 DCD 03/19 SC 1254 Insulin Detemir 18 UNITS BID 03/19 1000 DCD 03/19 SC 0903 Insulin Detemir 15 UNITS BID 03/16 2200 DC 03/18 SC 2205 Levothyroxine Sodium 0.224 MG DAILY AC 03/16 0700 DCD 03/19 PO 0622 Losartan Potassium 25 MG DAILY 03/15 1624 DCD 03/19 PO 0907 Methadone HCl 105 MG DAILY 03/16 1215 DCD 03/19 PO 0906 Nystatin 1 DRAKE BID PRN 03/15 1630 DCD 03/15 TOP 2319 Polyethylene Glycol 17 GM DAILY NEEDED PRN 03/16 1145 DCD PO Senna/Docusate Sodium 1 TAB BID PRN 03/16 1145 DCD 03/19 PO 0908 Sodium Chloride 1,000 ML Q20H 03/18 0930 DC 03/18 IV 03/19 0529 1029 Zinc Oxide 1 DRAKE BID 03/17 1303 DCD 03/18 TOP 2206 Results Last 24 Hrs of Labs/Mics: Laboratory Tests 03/19 0625 Chemistry Sodium (137 - 145 mmol/L) 134 L Potassium (3.5 - 5.1 mmol/L) 3.7 Chloride (98 - 107 mmol/L) 96 L Carbon Dioxide (22 - 30 mmol/L) 29 Anion Gap (5 - 16) 10 BUN (9 - 20 mg/dL) 20 Creatinine (0.7 - 1.2 mg/dL) 1.0 Estimated GFR (>60 ml/min) > 60 BUN/Creatinine Ratio (7 - 25 %) 20.0 Creatine Kinase (55 - 170 U/L) 673 H
== END 2017-03-19 15:00 | disposition home health service (06) | DRG 948 ==
LOC: ERH 09:17 → ERHI 16:06 → 1NO 16:06 → EDBEDREQ 17:05 → ENRESERV 20:29 → ENTRNSPT 21:06 → 1NO 21:29 → CMPTRNSPT 21:47 → 1NO 03-16 07:50 → ENPENDDIS 03-19 13:52 → 1NO 03-19 15:00 → ENTRNSPT 03-19 15:34 → CMPTRNSPT 03-19 15:44
PROVIDERS: Physician Assistant; Student in an Organized Health Care Education/Training Program
DX: R41.82 Altered mental status, unspecified (principal); E11.65 Type 2 diabetes mellitus with hyperglycemia; M62.82 Rhabdomyolysis; E87.1 Hypo-osmolality and hyponatremia; F11.20 Opioid dependence, uncomplicated; T43.225A Adverse effect of selective serotonin reuptake inhibitors, initial encounter; R74.0 Nonspecific elevation of levels of transaminase and lactic acid dehydrogenase [LDH]; I10 Essential (primary) hypertension; E03.9 Hypothyroidism, unspecified; M54.9 Dorsalgia, unspecified; E78.5 Hyperlipidemia, unspecified; F32.9 Major depressive disorder, single episode, unspecified; Z79.82 Long term (current) use of aspirin; Z79.4 Long term (current) use of insulin; Z90.49 Acquired absence of other specified parts of digestive tract; F41.1 Generalized anxiety disorder; Z88.0 Allergy status to penicillin; I25.10 Atherosclerotic heart disease of native coronary artery without angina pectoris; Z81.8 Family history of other mental and behavioral disorders; Z96.89 Presence of other specified functional implants; G89.29 Other chronic pain
CPT/HCPCS: 1NP; 36415; 71046; 80307; 81001; 82436; 87804; 87804-59; 93005; 93010; 97116-GO; 97161-GP; 97530-GO; 99233; J1644

== ENCOUNTER 2017-06-05 11:43 | Inpatient (IN) | payer OTHER, MEDICARE ==
[~2017-06-05] VITALS: Ht 180.3 cm; Wt 111.8 kg
[~2017-06-05 11:43] MED LIST changes: +ALEVE220 M1 PO; +ASPIRIN EC81 M1 PO; +ATIVAN1 M1 PO; +CYMBALTA60 M1 PO; +DILTIAZEM 24HR240 MG PO; +EDARBYCLOR 40-1 EAC1 PO; +HUMALOG MI100 UNIT/3 SC; +IBUPROFEN800 M1 PO; +METHADONE H5 MG/5 M2 PO; +PANTOPRAZOLE SO40 M1 PO; +PAROXETINE HCL20 M1 PO; +PRAVASTATIN SOD40 M2 PO; +SYNTHROID112 MCG PO
--- NOTE | 2017-06-05 12:37 | ED GENERAL ADULT ---
History of Present Illness General Chief Complaint: Psychiatric Related Complaint Stated Complaint: PER PT "MENTAL BREAK" WEAKNESS Source: patient Exam Limitations: no limitations Allergies Coded Allergies: Penicillins (Severe, ANAPHYLAXIS 04/10/15) Reconcile Medications Aspirin (Ecotrin*) 81 MG TABLET.DR 1 TAB PO DAILY HEART/BLOOD (Reported) Azilsartan Med/Chlorthalidone (Edarbyclor 40-25 MG Tablet) 40 MG-25 MG TABLET 1 TAB PO DAILY BP (Reported) Diltiazem HCl (Diltiazem 24HR ER) 240 MG CAP.ER.24H 1 CAP PO DAILY HEART/BP ( Reported) Insulin NPL/Insulin Lispro (Humalog Mix 75-25 Kwikpen) 100 UNIT/ML (75-25) INSULN.PEN 34 UNITS SC BID DIABETES (Reported) Take 30 units before breakfast Take 30 units before dinner Levothyroxine Sodium (Synthroid) 112 MCG TABLET 2 TAB PO DAILY THYROID ( Reported) Methadone HCl 5 MG/5 ML SOLUTION 101 MG PO DAILY CHRONIC PAIN (Reported) Triage Note: 71 YO MALE TO TRIAGE STATING THEY STARTED HIM ON ZOFLOT 3 DASY AGO. REPORTS SINCE THEN HE CANNOT FOCUS AND HAS EPSIODES OF "FEAR" PER , HE DOESNT FEEL SAFE AT HOME, HASNT BEEN EATING OR SLEEPING. REPORTS HX OF DEPRESSION IN THE FAMILY. REPORTS CONSTIPATION. PER , HE HAS FEELING OF "I DONT WANT TO DO THIS ANYMORE" PT REPORTS "I UST WANT TO FORGET ABOUT EVERYTHING" Triage Nurses Notes Reviewed? yes Onset: Gradual Duration: chronic Timing: constant HPI: 71-year-old male history of depression, methadone maintenance, diabetes, hypothyroid, hypertension, hyperlipidemia percent in with worsening depression. Patient reports that he has had decreased appetite, insomnia, and just feels that he "doesn't want to do this anymore." Although, patient denies suicidal ideation or attempt. Denies HI. Denies EtOH or drug use. Reports that his psychiatrist started him on Zoloft 3 days ago, reports noncompliance. (Leia Mendoza) Vital Signs & Intake/Output Vital Signs & Intake/Output Vital Signs Date Time Temp Pulse Resp B/P B/P Pulse O2 O2 Flow FiO2 Mean Ox Delivery Rate 06/05 1639 97.3 79 18 153/72 96 06/05 1149 98.0 82 18 110/71 96 Room Air (Jim LOZANO,Simón) Past History Travel History Traveled to [place] past 21 day No Medical History Any Pertinent Medical History? see below for history Neurological: NONE EENT: cataracts Cardiovascular: hypertension, hyperlipidemia Respiratory: NONE Gastrointestinal: NONE Hepatic: NONE Renal: NONE Musculoskeletal: chronic back pain, osteoarthritis, LUMBAR FXS STIMULATOR IN BACK Psychiatric: opioid dependence, substance abuse, on methadone Endocrine: diabetes, hypothyroidism Blood Disorders: NONE Cancer(s): NONE EXECUTIVE ASSISTANT TO GENERAL COUNSEL/Reproductive: NONE History of MRSA: No History of VRE: No History of CDIFF: No Surgical History Surgical History: appendectomy, cholecystectomy, thyroidectomy(2007) Psychosocial History Who do you live with Spouse What is your primary language Togolese Tobacco Use: Never used Family History Hx Contributory? No (Leia Mendoza) Review of Systems Review of Systems Constitutional: Reports: no symptoms. EENTM: Reports: no symptoms. Respiratory: Reports: no symptoms. Cardiovascular: Reports: no symptoms. GI: Reports: no symptoms. Genitourinary: Reports: no symptoms. Musculoskeletal: Reports: no symptoms. Skin: Reports: no symptoms. Neurological/Psychological: Reports: anxiety, depressed. Denies: ataxia, confusion, headache, numbness, paresthesia, weakness. Hematologic/Endocrine: Reports: no symptoms. Immunologic/Allergic: Reports: no symptoms. (Leia Mendoza) Physical Exam Physical Exam General Appearance: well developed/nourished, no apparent distress, alert, awake , comfortable Head: atraumatic, normal appearance Eyes: Bilateral: normal appearance. Neck: normal inspection Respiratory: normal breath sounds, lungs clear Cardiovascular: regular rate/rhythm Gastrointestinal: soft, non-tender Back: normal inspection Extremities: normal inspection Neurologic/Psych: awake, alert, oriented x 3, normal gait, normal mood/affect Skin: intact, normal color, warm/dry Core Measures ACS in differential dx? No CVA/TIA Diagnosis: No Sepsis Present: No Sepsis Focused Exam Completed? No (Leia Mendoza) Progress Differential Diagnoses I considered the following diagnoses in my evaluation of the patient: [Worsening depression versus suicidal ideation, low concern for infection versus metabolic arrangement versus other physiologic cause for symptoms] Plan of Care: Orders Procedure Date/time Status Consistent Carbohydrate 3 06/06 B Active Regular Diet 06/05 D Complete EKG 06/05 1652 Active Lab Add-on Test 04/27 1652 Active Patient Data - inpatient psych 06/05 1620 Active Admit to inpatient psych 06/05 1620 Active TSH REFLEX 06/05 1321 Active LIPID PANEL 06/05 1321 Active GLYCOSYLATED HGB 06/05 1321 Active ETHANOL 06/05 1321 Active URINE DRUGS OF ABUSE 06/05 1247 Complete URINALYSIS 06/05 1247 Complete COMPREHENSIVE METABOLIC PANEL 06/05 1247 Active CBC WITHOUT DIFFERENTIAL 06/05 1247 Complete ED CRISIS PSYCH CONSULT 06/05 1247 Active Vital Signs 06/05 UNK Active Nursing Misc 06/05 UNK Active FingerStick- Glucose 06/05 UNK Active Alternative Nursing Therapy 06/05 UNK Active Activity/Ambulation 06/05 UNK Active Current Medications Sig/Radha Start time Last Medication Dose Stop Time Status Admin Amlodipine Besylate 5 MG DAILY 06/06 09 UNVr (Norvasc) Aspirin Buffered 81 MG DAILY 06/06 09 UNVr (Ecotrin) Diltiazem HCl 240 MG DAILY 06/06 0900 UNVr (Cardizem CD) Non-Formulary 1 UNIT DAILY 06/06 09 UNVr Medication (NON FORMULARY) Methadone HCl 93 MG DAILY@0800 06/06 0800 UNVr (Dolophine) Levothyroxine Sodium 0.224 MG DAILY AC 06/06 0700 UNVr (Synthroid) Omeprazole 40 MG DAILY AC 06/06 0700 UNVr (Prilosec) Docusate Sodium 100 MG BID 06/05 2100 UNVr (Colace) Pravastatin Sodium 40 MG DAILY@1700 06/05 1700 UNVr (Pravachol) Lorazepam 1 MG ONCE ONE 06/05 1645 UNVr (Ativan) 06/05 1646 Non-Formulary 0 SEE ADMIN CRITERIA 06/05 1645 UNVr Medication (NON FORMULARY) Acetaminophen 650 MG Q6P PRN 06/05 1630 UNVr (Tylenol) Al Hydroxide/Mg 30 ML Q4-6 PRN PRN 06/05 1630 UNVr Hydroxide (Maalox Plus) Benztropine Mesylate 1 MG Q6P PRN 06/05 1630 UNVr (Cogentin 1 MG Tablet) Benztropine Mesylate 1 MG Q6P PRN 06/05 1630 UNVr (Cogentin) Gabapentin 300 MG Q6P PRN 06/05 1630 UNVr (Neurontin) Haloperidol 5 MG Q6P PRN 06/05 163 UNVr (Haldol) Haloperidol 5 MG Q6P PRN 06/05 163 UNVr (Haldol) Lorazepam 2 MG Q6P PRN 06/05 163 UNVr (Ativan) Magnesium Hydroxide 30 ML AT BEDTIME PRN 06/05 163 UNVr (Milk Of Magnesia) Ondansetron HCl 4 MG Q8P PRN 06/05 163 UNVr (Zofran) Trazodone HCl 50 MG AT BEDTIME NEED.. 06/05 163 UNVr (Desyrel) Laboratory Tests 06/05/17 1330: Urine Opiates Screen < 100, Methadone Screen > 735 H, Barbiturate Screen < 60, Ur Phencyclidine Scrn 10.40, Amphetamines Screen < 100, U Benzodiazepines Scrn < 85, Urine Cocaine Screen < 50, Urine Cannabis Screen < 5.00, Urinalysis LIGHT H , Urine Color YEL, Urine Clarity CLEAR, Urine pH 6.5, Ur Specific [place] 1.020, Urine Protein TRACE H, Urine Ketones TRACE H, Urine Nitrite NEG, Urine Bilirubin NEG, Urine Urobilinogen 1.0, Ur Leukocyte Esterase NEG, Ur Microscopic SEDIMENT EXAMINED, Urine WBC RARE, Ur Epithelial Cells RARE, Hyaline Casts RARE H, Urine Hemoglobin NEG, Urine Glucose 100 H 06/05/17 1321: Anion Gap 11, Estimated GFR 43 L, BUN/Creatinine Ratio 18.1, Glucose 250 H, Hemoglobin A1c Pending, Calcium 9.1, Total Bilirubin 0.7, AST 40, ALT 57, Alkaline Phosphatase 106, Total Protein 7.1, Albumin 4.0, Globulin 3.1, Albumin/ Globulin Ratio 1.3, Triglycerides 232 H, Cholesterol 237 H, LDL Cholesterol, Calc 135 H, HDL Cholesterol 56, Cholesterol/HDL Ratio 4, TSH &T3 &Free T4 Intrp 1.180, CBC w Diff NO MAN DIFF REQ, RBC 4.48 L, MCV 92.4, MCH 30.5, MCHC 33.0, RDW 13.6, MPV 7.4, Gran % 73.1, Lymphocytes % 18.3 L, Monocytes % 7.6, Eosinophils % 0.7, Basophils % 0.3, Absolute Granulocytes 6.5, Absolute Lymphocytes 1.6, Absolute Monocytes 0.7 H, Absolute Eosinophils 0.1, Absolute Basophils 0, Serum Alcohol < 10.0 Initial ED EKG: none (Leia Mendoza) Departure Departure Disposition: STILL A PATIENT Condition: Stable Clinical Impression Primary Impression: Depression Secondary Impressions: JIGNA (acute kidney injury) Referrals: Rosas Felder MD (PCP/Family) Additional Instructions: Labs remarkable for mild JIGNA. Will try to rehydrate orally in order to avoid IV placement as patient is here for psych eval. Patient seen and evaluated by crisis, plan for Inpatient Psychiatry admission. Departure Forms: Customer Survey General Discharge Information (Leia Mendoza) Psych Admission Note Psychiatric Admission: I have seen and evaluated MIGUEL ANGEL CARRERA. I have also reviewed all the pertinent lab results and diagnostic results. MIGUEL ANGEL CARRERA will be admitted to our inpatient Psychiatric unit for treatment and care. PA/CRITICAL CARE PHYSICIAN Co-Sign Statement Statement: ED Attending supervision documentation- x I saw and evaluated the patient. I have also reviewed all the pertinent lab results and diagnostic results. I agree with the findings and the plan of care as documented in the PA's/CRITICAL CARE PHYSICIAN's documentation. Advancing depression with suicidal thoughts. [] I have reviewed the ED Record and agree with the PA's/CRITICAL CARE PHYSICIAN's documentation. [] Additions or exceptions (if any) to the PAs/CRITICAL CARE PHYSICIAN's note and plan are summarized below: [] (Jim LOZANO,Simón) Critical Care Note Critical Care Note Critical Care Time: non-applicable (Leia Mendoza)
[2017-06-05 13:29] LABS: ABSOLUTE BASOPHIL COUNT 0 /CUMM (0.0-0.2); ABSOLUTE EOSINOPHIL COUNT 0.1 /CUMM (0.0-0.7); ABSOLUTE GRANULOCYTE CT 6.5 /CUMM (1.4-6.5); ABSOLUTE LYMPH COUNT 1.6 /CUMM (1.2-3.4); ABSOLUTE MONOCYTE COUNT 0.7 /CUMM (0.10-0.60); BASOPHIL % 0.3 % (0.0-2.0); EOSINOPHIL % 0.7 % (0-5); GRANULOCYTE % 73.1 % (42.2-75.2); HEMATOCRIT 41.4 % (42-52); MEAN CORPUSCULAR HGB 30.5 PG (27.0-31.0); MEAN CORPUSCULAR VOLUME 92.4 FL (80.0-94.0); MEAN PLATELET VOLUME 7.4 FL (7.4-10.4); PLATELET COUNT 281 /CUMM (130-400); RBC DISTRIBUTION WIDTH 13.6 % (11.5-14.5); RED BLOOD CELL CT 4.48 /CUMM (4.70-6.10); WHITE BLOOD CELL COUNT 8.9 /CUMM (4.8-10.8)
--- NOTE | 2017-06-05 17:28 | ED PSYCH CRISIS CONSULTATION ---
Crisis Consult Basic Assessment Date of Consult: 06/05/17 Responsible Person/Accompanied By: Self & , Alee Roach Insurance Authorization: Insurance #1: Insurance name: MEDICARE A Phone number: Policy number: [id number] Group number: Authorization number: ED Provider: Patient's ED Provider: Leia Mendoza Primary Care Physician: Patient's PCP: Rosas Felder MD PCP's Current Psychiatrist: Dr. Robel [facility] Chief Complaint: Psychiatric Related Complaint Patient's Quote: "I want to be normal or I want to ." Present Illness: The patient is a 71 year old male presenting to the ED with a complaint of depression, anxiety and worsening SI. The patient presented as alert, anxious, depressed, hopeless, helpless, tearful at times, orientated x3 with labile mood and congruent affect. Patient reports worsening depression and passive SI without a plan. Patient states "I was frantic when I woke up this morning. I got to get some help or . I cannot stand living this way." Patient denies any history of prior suicide attempts. Patient denies HI, auditory hallucinations and visual hallucinations. Patient reports depressed mood "I am flat." The patient reports anxiety. "I am not the same person i used to be. I am fearful of everything and nervous all the time." Patient reports depression of 8 and anxiety of 8 on a scale of 0 to 10, 10 being most severe. Patient reports interrupted and limited sleep ("I don't sleep. I sleep 10 minutes and have to urinate several times each night.") and limited appetite ("I don't eat a lot and recently lost 16 lbs."). The patient reports no motivation or energy, "I used to go to ball games all the time and now it took everything I had to go to my nephew's game and I bimal exhausted after." The patient reports having "zero" concentration due to worry. The patient reports disengaging from life's activities over the past several months. "I used to do everything and now I stopped everything." The patient identified current triggers as his relationship with his , constant concern over everything, feeling abandoned, and chronic pain. The patient reports he is tapering off of methadone which he started for pain management at [place] about two years ago. He tapered down 2mg per week from 105 mg and is currently at 93 mg daily. Patient was inpatient at [facility] from 03/15/17 to 03/20/17 and treated for a serotonin syndrome. The patient was recently prescribed [address] Dr[address] Jenkins in [facility] and reports it making him feel "frantic" after taking it a couple of days. He was ordered to stop taking the medication by Dr. Jenkins. Spoke to patient's , Alee Roach, . Alee states the patient has been having adverse reactions to the Zoloft and does to most SSRIs tried in the past. She reports he was acting bizarrely in the past prior to his admission at [facility] when he was on other SSRI medications. Alee states the patient has been in recovery for alcohol dependence and sober for 30 years. Alee feels the patient is not stable to return home and requests inpatient admission. The CSSRS was completed with the patient. Patient identified risk factors: Wish to be , suicidal thoughts, hopelessness, helplessness, feeling trapped, major depressive episode, mixed affective episode, substance abuse/dependence, agitation or severe anxiety and patient identified protective factors: identifies reasons for living (grandchild), supportive social network and family. Patient's Address: [address] [place] [address] Other Who Do You Live With? Spouse Family/Informants Interviewed: , Alee Roach, Allergies - Coded Allergies: Penicillins (Severe, ANAPHYLAXIS 04/10/15) Current Medications - Scheduled Medications Aspirin (Ecotrin*) 81 MG TABLET. 1 TAB PO DAILY HEART/BLOOD (Reported) Entered as Reported by Rosa Louise on 03/15/17 1238 Azilsartan Med/Chlorthalidone (Edarbyclor 40-25 MG Tablet) 40 MG-25 MG TABLET 1 TAB PO DAILY BP (Reported) Entered as Reported by Rosa Louise on 03/15/17 1235 Diltiazem HCl (Diltiazem 24HR ER) 240 MG CAP.ER.24H 1 CAP PO DAILY HEART/BP # 90 (Reported) Entered as Reported by Rosa Louise on 03/15/17 1234 Insulin NPL/Insulin Lispro (Humalog Mix 75-25 Kwikpen) 100 UNIT/ML (75-25) INSULN.PEN 34 UNITS SC BID DIABETES #45 (Reported) Entered as Reported by Rosa Louise on 03/15/17 1237 Levothyroxine Sodium (Synthroid) 112 MCG TABLET 2 TAB PO DAILY THYROID #180 ( Reported) Entered as Reported by Rosa Louise on 03/15/17 1238 Methadone HCl 5 MG/5 ML SOLUTION 101 MG PO DAILY CHRONIC PAIN (Reported) Entered as Reported by Rosa Louise on 03/15/17 1240 Laboratory Results: Laboratory Tests 06/05/17 1330: Urine Opiates Screen < 100, Methadone Screen > 735 H, Barbiturate Screen < 60, Ur Phencyclidine Scrn 10.40, Amphetamines Screen < 100, U Benzodiazepines Scrn < 85, Urine Cocaine Screen < 50, Urine Cannabis Screen < 5.00, Urinalysis LIGHT H , Urine Color YEL, Urine Clarity CLEAR, Urine pH 6.5, Ur Specific [place] 1.020, Urine Protein TRACE H, Urine Ketones TRACE H, Urine Nitrite NEG, Urine Bilirubin NEG, Urine Urobilinogen 1.0, Ur Leukocyte Esterase NEG, Ur Microscopic SEDIMENT EXAMINED, Urine WBC RARE, Ur Epithelial Cells RARE, Hyaline Casts RARE H, Urine Hemoglobin NEG, Urine Glucose 100 H 06/05/17 1321: Anion Gap 11, Estimated GFR 43 L, BUN/Creatinine Ratio 18.1, Glucose 250 H, Hemoglobin A1c Pending, Calcium 9.1, Total Bilirubin 0.7, AST 40, ALT 57, Alkaline Phosphatase 106, Total Protein 7.1, Albumin 4.0, Globulin 3.1, Albumin/ Globulin Ratio 1.3, Triglycerides 232 H, Cholesterol 237 H, LDL Cholesterol, Calc 135 H, HDL Cholesterol 56, Cholesterol/HDL Ratio 4, TSH &T3 &Free T4 Intrp Pending, CBC w Diff NO MAN DIFF REQ, RBC 4.48 L, MCV 92.4, MCH 30.5, MCHC 33.0, RDW 13.6, MPV 7.4, Gran % 73.1, Lymphocytes % 18.3 L, Monocytes % 7.6, Eosinophils % 0.7, Basophils % 0.3, Absolute Granulocytes 6.5, Absolute Lymphocytes 1.6, Absolute Monocytes 0.7 H, Absolute Eosinophils 0.1, Absolute Basophils 0, Serum Alcohol < 10.0 Past History Past Medical History Neurological: NONE EENT: cataracts Cardiovascular: hypertension, hyperlipidemia Respiratory: NONE Gastrointestinal: NONE Hepatic: NONE Renal: NONE Musculoskeletal: chronic back pain, osteoarthritis, LUMBAR FXS STIMULATOR IN BACK Psychiatric: opioid dependence, substance abuse, on methadone Endocrine: diabetes, hypothyroidism Blood Disorders: NONE Cancer(s): NONE 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 Past Surgical History Surgical History: appendectomy, cholecystectomy, thyroidectomy(2007) Psychosocial History Strengths/Capabilities: Supportive Desire to feel better Treatment-seeking Physical Limitations (Interventions): Chronic back pain Psychiatric Treatment History Psych Treatment Psychiatric Treatment Yes Inpatient Treatment Yes Outpatient Treatment Yes Location of Treatment [facility] Reason for Treatment F32.9 - Major depressive disorder, single episode, unspecified, F11.21 - Opioid dependence in remission (moderate use disorder) on agonist therapy (methadone); medical - lumbar radiculopathy, acquired hypothyroidism, diabetes mellitus, mixed hyperlipidemia, hypertension, epigastric pain Dates of Treatment [facility] 03/15/17-03/20/17 Response to Treatment Patient reports depression, anxiety & SI. Diagnosis by History: F32.9 - Major depressive disorder, single episode, unspecified, F11.21 - Opioid dependence in remission (moderate use disorder) on agonist therapy (methadone); medical - lumbar radiculopathy, acquired hypothyroidism, diabetes mellitus, mixed hyperlipidemia, hypertension, epigastric pain Substance Use/Abuse History Drug Use/Abuse Substances Used/Abused Yes Substance Used/Abused Alcohol First Use Teenager Last Used 30 years ago How much used/taken In recovery How often In recovery For how long Sober 30 years Substance Abuse Treatment Substance Abuse Treatment Past Substance Abuse [place] Yes Inpatient Treatment No Outpatient Treatment Yes Location of Treatment 30 years sober Reason for Treatment alcohol dependence Dates of Treatment Sober 30 years Response to Treatment Sober 30 years Comments: Patient currently on methadone maintenance for pain management with [place]. Patient on a taper form 105 mg and on current dose of 93 mg per . Current Mental Status Mental Status Orientation: Person, Place, Situation Affect: Anxious, Depressed, Hopeless, Labile Speech: WNL Neuro-vegetative: Appetite Decreased, Energy Decreased, Loss of Interest, Sleep Disturbance Appearance Appearance- Dress/Hygiene: Patient was dressed in hospital scrubs, well-groomed and hygienic. Behaviors Thought Process: WNL Thought Content: WNL Memory: Impaired Insight: Poor SI/HI Risk Assessment Past Suicidal Ideation/Attempts Yes Current Suicidal Ideation/Att Yes Past Homicidal Ideation/Att: No Current Homicidal Ideation/Attempts No Degree of Intent: Thoughts/No Intent Danger To: Self Gravely Disabled: Lack of Insight Risk Factors: age (under 24/over 65), chronic/serious med cond., high anxiety/ distress, SA/MH hospitalized, substance abuse, male Lethality Ratin PTSD Checklist PTSD Done? patient declined ED Management Sitter: Yes Restraints: No DSM5/PS Stressors/Medical Prob Diagnosis' (DSM 5, Stressors, Medical): F32.9 - Major depressive disorder, single episode, unspecified, F41.9, Unspecified anxiety disorder, F11.20 - Opioid dependence in remission (moderate use disorder) on agonist therapy (methadone); medical - lumbar radiculopathy, acquired hypothyroidism, diabetes mellitus, mixed hyperlipidemia, hypertension, epigastric pain Current GAF: 28 Comments: None Departure Disposition Psych Medical Clearance Date: 06/05/17 Medically Cleared at: 1154 Time Started: 1530 Time Ended: 1615 Psychiatrist Consulted: Noah Whitehead MD Date Disposition Established: 06/05/17 Time Disposition Established: 1614 Plan for Disposition - Modality: Inpatient Psychiatry Facility: [facility] Rationale for Disposition: Patient presents with unstable mood, depression, anxiety, SI, hopeless & helpless. Dr. Whitehead agrees the patient needs inpatient admission to stabilize mood and address SI. Type of IP Admission: Voluntary Additional Instructions: None Referrals Rosas Felder MD (PCP/Family)
--- NOTE | 2017-06-05 17:31 | SOCIAL WORKER SOCIAL HX PSYCH ---
Social History Basic Assessment Insurance Authorization: Insurance #1: Insurance name: MEDICARE A Phone number: Policy number: [id number] Group number: Authorization number: Curr Source of Income/Entitlements: [facility] Primary Care Physician: Patient's PCP: Rosas Felder MD PCP's Present Problem: The patient is a 71 year old male presenting to the ED with a complaint of depression, anxiety and worsening SI. The patient presented as alert, anxious, depressed, hopeless, helpless, tearful at times, orientated x3 with labile mood and congruent affect. Patient reports worsening depression and passive SI without a plan. Patient states "I was frantic when I woke up this morning. I got to get some help or . I cannot stand living this way." Patient denies any history of prior suicide attempts. Patient denies HI, auditory hallucinations and visual hallucinations. Patient reports depressed mood "I am flat." The patient reports anxiety. "I am not the same person i used to be. I am fearful of everything and nervous all the time." Patient reports depression of 8 and anxiety of 8 on a scale of 0 to 10, 10 being most severe. Patient reports interrupted and limited sleep ("I don't sleep. I sleep 10 minutes and have to urinate several times each night.") and limited appetite ("I don't eat a lot and recently lost 16 lbs."). The patient reports no motivation or energy, "I used to go to ball games all the time and now it took everything I had to go to my nephew's game and I bimal exhausted after." The patient reports having "zero" concentration due to worry. The patient reports disengaging from life's activities over the past several months. "I used to do everything and now I stopped everything." The patient identified current triggers as his relationship with his , constant concern over everything, feeling abandoned, and chronic pain. The patient reports he is tapering off of methadone which he started for pain management at [place] about two years ago. He tapered down 2mg per week from 105 mg and is currently at 93 mg daily. Patient was inpatient at [facility] from 03/15/17 to 03/20/17 and treated for a serotonin syndrome. The patient was recently prescribed [address] Jenkins in [facility] and reports it making him feel "frantic" after taking it a couple of days. He was ordered to stop taking the medication by Dr. Jenkins. Spoke to patient's , Alee Roach, . Alee states the patient has been having adverse reactions to the Zoloft and does to most SSRIs tried in the past. She reports he was acting bizarrely in the past prior to his admission at [facility] when he was on other SSRI medications. Alee states the patient has been in recovery for alcohol dependence and sober for 30 years. Alee feels the patient is not stable to return home and requests inpatient admission. The CSSRS was completed with the patient. Patient identified risk factors: Wish to be , suicidal thoughts, hopelessness, helplessness, feeling trapped, major depressive episode, mixed affective episode, substance abuse/dependence, agitation or severe anxiety and patient identified protective factors: identifies reasons for living (grandchild), supportive social network and family. Primary Language? Central African Language(s) Spoken At Home: Central African Living Situation Rents or Owns Home? owns Residential Care/Treatment Fac N/A Feel Safe Where You Are Living Yes Feel Safe in Relationships? Yes Comments: N/A Allergies - Coded Allergies: Penicillins (Severe, ANAPHYLAXIS 04/10/15) Current Medications - Scheduled Medications Aspirin (Ecotrin*) 81 MG TABLET.DR 1 TAB PO DAILY HEART/BLOOD (Reported) Entered as Reported by Rosa Louise on 03/15/17 1238 Azilsartan Med/Chlorthalidone (Edarbyclor 40-25 MG Tablet) 40 MG-25 MG TABLET 1 TAB PO DAILY BP (Reported) Entered as Reported by Rosa Louise on 03/15/17 1235 Diltiazem HCl (Diltiazem 24HR ER) 240 MG CAP.ER.24H 1 CAP PO DAILY HEART/BP # 90 (Reported) Entered as Reported by Rosa Louise on 03/15/17 1234 Insulin NPL/Insulin Lispro (Humalog Mix 75-25 Kwikpen) 100 UNIT/ML (75-25) INSULN.PEN 34 UNITS SC BID DIABETES #45 (Reported) Entered as Reported by Rosa Louise on 03/15/17 1237 Levothyroxine Sodium (Synthroid) 112 MCG TABLET 2 TAB PO DAILY THYROID #180 ( Reported) Entered as Reported by Rosa Louise on 03/15/17 1238 Methadone HCl 5 MG/5 ML SOLUTION 101 MG PO DAILY CHRONIC PAIN (Reported) Entered as Reported by Rosa Louise on 03/15/17 1240 Consequences of Psych Med Use: Patient does not react well to SSRI medications. has seratonin syndrome. 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 No Mother's Age (Current/): 87 ( ) Relationship w/Mother: "Great" Father's Age (Current/): 44 () Relationship w/Father: " when patient was 18 years old." Any Sibling(s)? Yes Sibling's Gender(s)/Age(s): male Sibling 1:, male Sibling 2:, male Sibling 3: Relationship w/Sibling(s): Great with two siblings. One brother . Relationship w/Friends: Patient reports he has friends but has been isolating from them recently. Family Psych/Sub Abuse/Add Hx: N/A Other Comments: None Abuse/Trauma History Trauma History/Current Trauma: Denies Legal History Legal Guardian/Address/Phone: None Current Legal Status: none Pending Court Dates: None Have you ever been arrested No Hx of Juvenile Legal Charges? No Hx of Adult Legal Charges? No Civil Proceedings: N/A Domestic Relations Court: None Child Protective Serv Involvmnt None Heel Seat Sander N/A Psychosocial History Primary Support System: Strengths/Capabilities: Supportive , Desire to feel better Treatment-seeking Weaknesses: Patient has chronic pain and lacks insight into mental health. Physical Limitations (Interventions): Chronic back pain Last Physical: Unclear History of Seizures? No History of Blackouts? No ADL Limitations: none [place]/Social/Peer Relations Patient reports he has friends, but has been isolating from them. Meaningful Activities: travelling to watch basketball games and other sporting events, sports Childhood Religious: Anabaptism Current Mandaeism Affiliation: Anabaptism Is Spirituality Important to You? "Yes" Patient's Ethnicity: Bengali Cultural/Ethnic Issues: None Are There Developmental Issues? No Milestones Achieved: fine motor, gross motor Psychiatric Treatment History Psych Treatment Inpatient Treatment Yes Outpatient Treatment Yes Location of Treatment [facility] Reason for Treatment F32.9 - Major depressive disorder, single episode, unspecified, F11.21 - Opioid dependence in remission (moderate use disorder) on agonist therapy (methadone); medical - lumbar radiculopathy, acquired hypothyroidism, diabetes mellitus, mixed hyperlipidemia, hypertension, epigastric pain Dates of Treatment [facility] 03/15/17-03/20/17, OPS current w/ Dr. Jenkins Response to Treatment Patient reports depression, anxiety & SI. 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 Thomas OPS Treatment of Prior Episodes: [facility] Diagnosis: F32.9 - Major depressive disorder, single episode, unspecified, F11.21 - Opioid dependence in remission (moderate use disorder) on agonist therapy (methadone); medical - lumbar radiculopathy, acquired hypothyroidism, diabetes mellitus, mixed hyperlipidemia, hypertension, epigastric pain Psychodynamic Issues: primary strain, limited social, financial Risk Factors: age (under 24/over 65), chronic/serious med cond., high anxiety/ distress, SA/MH hospitalized, substance abuse, male Substance Use/Abuse History Drug Use/Abuse Substance Used/Abused Alcohol First Use Teenager Last Used 30 years ago How much used/taken In recovery How often In recovery For how long Sober 30 years Have Had Periods of Sobriety? Yes Explain: Patient has been sober from alcohol for 30 years. Relapse History? No Explain: Patient has been sober from alcohol for 30 years Have You Ever Attended AA? Yes Do You Attend AA Currently? Yes Do You Have a Sponsor? No Other Community Resources Used: has participated in [employer] Symptoms of Use: None noted Substance Abuse Treatment Substance Abuse Treatment Inpatient Treatment No Outpatient Treatment Yes Location of Treatment 30 years sober Reason for Treatment alcohol dependence Dates of Treatment Sober 30 years Response to Treatment Sober 30 years Comments: patient has been sober for 30 years. patient on metahdone maintenance tx for chronic pain and tapering off. Current dose is 28mg. Sexual History Sexually Active No # of partners 1 Sexual Orientation Heterosexual Sexual Concerns: None noted Education History Highest Level of Education: high school/GED Highest Grade Completed: 11th Vocational Year Completed: n/a Number of College Years: 0 College Degree/Major: none Other Degree(s): n/a Preferred Learning Style: experiential HX of Learning Difficulties: None reported Barriers to Learning: None reported Special Communication Needs: None reported Employment History Employment Retired Not in Labor Force: Retired Vocation/Occupational Hx: retired No. of Jobs in Last 5 Years: 0 Attendance: n/a Performance: Good Comments: Patient is retired and on SSI. History Have You Been in The ? No If Yes, Explain: N/A Type of Discharge: N/A Date of Discharge: N/A Current Mental Status Mental Status Orientation: Person, Place, Situation Affect: Anxious, Depressed, Hopeless, Labile Speech: WNL Neuro-vegetative: Appetite Decreased, Energy Decreased, Loss of Interest, Sleep Disturbance Appearance Appearance- Dress/Hygiene: Patient was dressed in hospital scrubs, well-groomed and hygienic. Behaviors Thought Process: WNL Thought Content: WNL Memory: Impaired Insight: Poor SI/HI Risk Assessment Past Suicidal Ideation/Attempts Yes Current Suicidal Ideation/Att Yes Past Homicidal Ideation/Att: No Current Homicidal Ideation/Attempts No Degree of Intent: Thoughts/No Intent Danger To: Self Gravely Disabled: Lack of Insight Lethality Ratin - Conclusion and Recommendations for treatment - and discharge planning Summary: Patient to be admitted to [facility] to stabilize mood and address depression, anxiety & SI. Patient to undergo psychiatric evaluation, medciation evaulation, group therapy, family meeting and discharge planning.
--- NOTE | 2017-06-05 17:31 | IP CRISIS DIAG ASSESS PSYCH ---
Edis Field 06/05/17 1730: Diagnostic Assessment Basic Assessment Insurance Authorization: Insurance #1: Insurance name: MEDICARE A Phone number: Policy number: [id number] Group number: Authorization number: Called [employer] and left voicemail requesting call back for supplemental insurance authorization. Group # [id number]; ID # [id number] Primary Care Physician: Patient's PCP: Rosas Felder MD PCP's Patient's Quote: "I want to be normal or I want to ." Present Illness: The patient is a 71 year old male presenting to the ED with a complaint of depression, anxiety and worsening SI. The patient presented as alert, anxious, depressed, hopeless, helpless, tearful at times, orientated x3 with labile mood and congruent affect. Patient reports worsening depression and passive SI without a plan. Patient states "I was frantic when I woke up this morning. I got to get some help or . I cannot stand living this way." Patient denies any history of prior suicide attempts. Patient denies HI, auditory hallucinations and visual hallucinations. Patient reports depressed mood "I am flat." The patient reports anxiety. "I am not the same person i used to be. I am fearful of everything and nervous all the time." Patient reports depression of 8 and anxiety of 8 on a scale of 0 to 10, 10 being most severe. Patient reports interrupted and limited sleep ("I don't sleep. I sleep 10 minutes and have to urinate several times each night.") and limited appetite ("I don't eat a lot and recently lost 16 lbs."). The patient reports no motivation or energy, "I used to go to ball games all the time and now it took everything I had to go to my nephew's game and I was exhausted after." The patient reports having "zero" concentration due to worry. The patient reports disengaging from life's activities over the past several months. "I used to do everything and now I stopped everything." The patient identified current triggers as his relationship with his , constant concern over everything, feeling abandoned, and chronic pain. The patient reports he is tapering off of methadone which he started for pain management at [facility] about two years ago. He tapered down 2mg per week from 105 mg and is currently at 93 mg daily. Patient was inpatient at [facility] from 03/15/17 to 03/20/17 and treated for a serotonin syndrome. The patient was recently prescribed 25 mg of Zoloft by Dr. Jenkins in [facility] and reports it making him feel "frantic" after taking it a couple of days. He was ordered to stop taking the medication by Dr. Jenkins. Spoke to patient's , Alee Roach, . Alee states the patient has been having adverse reactions to the Zoloft and does to most SSRIs tried in the past. She reports he was acting bizarrely in the past prior to his admission at [facility] when he was on other SSRI medications. Alee states the patient has been in recovery for alcohol dependence and sober for 30 years. Alee feels the patient is not stable to return home and requests inpatient admission. The CSSRS was completed with the patient. Patient identified risk factors: Wish to be , suicidal thoughts, hopelessness, helplessness, feeling trapped, major depressive episode, mixed affective episode, substance abuse/dependence, agitation or severe anxiety and patient identified protective factors: identifies reasons for living (grandchild), supportive social network and family. Patient's Address: [address] [place] [address] Other Who Do You Live With? Spouse Feel Safe Where You Live? Yes Feel Safe in Your Relationship Yes Marital Status: Do You Have Children? Yes Ages? 42,39,36 Primary Language? Latvian Language(s) Spoken At Home: Latvian Family/Informants Interviewed: , Alee Roach, Allergies - Coded Allergies: Penicillins (Severe, ANAPHYLAXIS 04/10/15) Consequences of Psych Med Use: Patient has serotonin syndrome and does not react well to SSRIs. Comment: None Lab Results: Laboratory Tests 06/05/17 1330: Urine Opiates Screen < 100, Methadone Screen > 735 H, Barbiturate Screen < 60, Ur Phencyclidine Scrn 10.40, Amphetamines Screen < 100, U Benzodiazepines Scrn < 85, Urine Cocaine Screen < 50, Urine Cannabis Screen < 5.00, Urinalysis LIGHT H , Urine Color YEL, Urine Clarity CLEAR, Urine pH 6.5, Ur Specific [place] 1.020, Urine Protein TRACE H, Urine Ketones TRACE H, Urine Nitrite NEG, Urine Bilirubin NEG, Urine Urobilinogen 1.0, Ur Leukocyte Esterase NEG, Ur Microscopic SEDIMENT EXAMINED, Urine WBC RARE, Ur Epithelial Cells RARE, Hyaline Casts RARE H, Urine Hemoglobin NEG, Urine Glucose 100 H 06/05/17 1321: Anion Gap 11, Estimated GFR 43 L, BUN/Creatinine Ratio 18.1, Glucose 250 H, Hemoglobin A1c Pending, Calcium 9.1, Total Bilirubin 0.7, AST 40, ALT 57, Alkaline Phosphatase 106, Total Protein 7.1, Albumin 4.0, Globulin 3.1, Albumin/ Globulin Ratio 1.3, Triglycerides 232 H, Cholesterol 237 H, LDL Cholesterol, Calc 135 H, HDL Cholesterol 56, Cholesterol/HDL Ratio 4, TSH &T3 &Free T4 Intrp Pending, CBC w Diff NO MAN DIFF REQ, RBC 4.48 L, MCV 92.4, MCH 30.5, MCHC 33.0, RDW 13.6, MPV 7.4, Gran % 73.1, Lymphocytes % 18.3 L, Monocytes % 7.6, Eosinophils % 0.7, Basophils % 0.3, Absolute Granulocytes 6.5, Absolute Lymphocytes 1.6, Absolute Monocytes 0.7 H, Absolute Eosinophils 0.1, Absolute Basophils 0, Serum Alcohol < 10.0 Toxicology Screen Completed? Yes Results: Positive for prescribed methadone Symptoms of Use: None Past History Past Medical History Medical History: Diabetes, Hypertension Past Surgical History Surgical History appendectomy, cholecystectomy, cataract Removal, EXPLORATORY ABD SX BENIGN TUMOR REM CHEST WA THYROIDECTOMY CHEST MASS REMOVED Abuse/Trauma History Trauma History/Current Trauma: Denies Legal History Current Legal Status: none Have you ever been arrested? No Number of Arrests: [address] Dates: None Call Or Contact Centre Operator N/A Psychosocial History Strengths/Capabilities: Supportive , Desire to feel better Treatment-seeking Physical Limitations (Interventions): Chronic back pain Psychiatric Treatment History Psych Treatment Psychiatric Treatment Yes Inpatient Treatment Yes Outpatient Treatment Yes Location of Treatment [facility] Reason for Treatment F32.9 - Major depressive disorder, single episode, unspecified, F11.21 - Opioid dependence in remission (moderate use disorder) on agonist therapy (methadone); medical - lumbar radiculopathy, acquired hypothyroidism, diabetes mellitus, mixed hyperlipidemia, hypertension, epigastric pain Dates of Treatment [facility] 03/15/17-03/20/17 Response to Treatment Patient reports depression, anxiety & SI. Diagnosis by History: F32.9 - Major depressive disorder, single episode, unspecified, F11.21 - Opioid dependence in remission (moderate use disorder) on agonist therapy (methadone); medical - lumbar radiculopathy, acquired hypothyroidism, diabetes mellitus, mixed hyperlipidemia, hypertension, epigastric pain Risk Factors: age (under 24/over 65), chronic/serious med cond., high anxiety/ distress, SA/MH hospitalized, substance abuse, male Substance Use/Abuse History Drug Use/Abuse minimum 12mo Hx Substances Used/Abused Yes Substance Used/Abused Alcohol First Use Teenager Last Used 30 years ago How much used/taken In recovery How often In recovery For how long Sober 30 years Substance Abuse Treatment Substance Abuse Treatment Past Substance Abuse TX Yes Inpatient Treatment No Outpatient Treatment Yes Location of Treatment 30 years sober Reason for Treatment alcohol dependence Dates of Treatment Sober 30 years Response to Treatment Sober 30 years Comments: None Sexual History Sexually Active No # of partners 0 Sexual Orientation Heterosexual Sexual Concerns: None Education History Highest Level of Education: high school/GED Preferred Learning Style: experiential Current Mental Status Mental Status Orientation: Person, Place, Situation Affect: Anxious, Depressed, Hopeless, Labile Speech: WNL Neuro-vegetative: Appetite Decreased, Energy Decreased, Loss of Interest, Sleep Disturbance Appearance Appearance- Dress/Hygiene: Patient was dressed in hospital scrubs, well-groomed and hygienic. Behaviors Thought Process: WNL Thought Content: WNL Memory: Impaired Insight: Poor SI/HI Risk Assessment - Minimum 6mo History- Past Suicidal Ideation/Attempts Yes Current Suicidal Ideation/Att Yes Past Homicidal Ideation/Att: No Current Homicidal Ideation/Attempts No Degree of Intent: Thoughts/No Intent Danger To: Self Gravely Disabled: Lack of Insight Risk Factors: age (under 24/over 65), chronic/serious med cond., high anxiety/ distress, SA/MH hospitalized, substance abuse, male Lethality Ratin Needs/Init TX Plan/Goals: Patient in need of inpatient admission to stabilize mood and address SI. Patient to undergo psychiatric evaluation, medication review, group therapy, family meeting and discharge planning. AUDIT-C Questionnaire: AUDIT-C Questionnaire: Response Value ETOH use in the past year Never 0 # drinks typical/day Doesn't Drink 0 6 or > drinks per occasion Never 0 Total 0 DSM5/PS Stressors/Medical Prob Diagnosis' (DSM 5, Stressors, Medical): F32.9 - Major depressive disorder, single episode, unspecified, F41.9, Unspecified anxiety disorder, F11.20 - Opioid dependence in remission (moderate use disorder) on agonist therapy (methadone); medical - lumbar radiculopathy, acquired hypothyroidism, diabetes mellitus, mixed hyperlipidemia, hypertension, epigastric pain Current GAF: 28 Comments: None Tesfaye JAMILJosafat 06/08/17 1140: Diagnostic Assessment Current Medications - Scheduled Medications Amlodipine Besylate 5 MG TABLET 1 TAB PO DAILY HIGH BLOOD PRESSURE #90 ( Reported) Entered as Reported by Arnold Robledo on 06/05/17 2146 Last Taken: 5MG on 06/05/17 0800 Aspirin (Ecotrin*) 81 MG TABLET.DR 1 TAB PO DAILY HEART/BLOOD (Reported) Entered as Reported by Rosa Louise on 03/15/17 1238 Last Taken: 81MG on 06/05/17 0800 Azilsartan Med/Chlorthalidone (Edarbyclor 40-25 MG Tablet) 40 MG-25 MG TABLET 1 TAB PO DAILY BP (Reported) Entered as Reported by Rosa Louise on 03/15/17 1235 Last Taken: 1 TAB on 06/05/17 0800 Diltiazem HCl (Diltiazem 24HR ER) 240 MG CAP.ER.24H 1 CAP PO DAILY HEART/BP # 90 (Reported) Entered as Reported by Rosa Louise on 03/15/17 1234 Last Taken: 240MG on 06/05/17 0800 Insulin NPL/Insulin Lispro (Humalog Mix 75-25 Kwikpen) 100 UNIT/ML (75-25) INSULN.PEN 34 UNITS SC BID DIABETES #45 (Reported) Entered as Reported by Rosa Louise on 03/15/17 1237 Last Taken: 34 UNITS on 06/05/17 1644 Levothyroxine Sodium (Synthroid) 112 MCG TABLET 2 TAB PO DAILY THYROID #180 ( Reported) Entered as Reported by Rosa Louise on 03/15/17 1238 Last Taken: 112 MCG on 06/05/17 0800 Methadone HCl 5 MG/5 ML SOLUTION 101 MG PO DAILY CHRONIC PAIN (Reported) Entered as Reported by Rosa Louise on 03/15/17 1240 Last Taken: 101 MG on 06/05/17 0800 Current Mental Status SI/HI Risk Assessment - Minimum 6mo History- Addendum Note Addendum Spoke with a field service representative from [facility] after being transferred to several places. She stated that the pt's policy follows medicare guidelines so no pre-cert is needed.
[2017-06-05 20:24] VITALS: BP 118/55
--- NOTE | 2017-06-05 21:16 | History & Physical ---
General Information and HPI MD Statement: I have seen and personally examined MIGUEL ANGEL CARRERA and documented this H&P. The patient is a 71 year old M who presented with a patient stated chief complaint of [ medical evaluation ]. Source of Information: patient Exam Limitations: no limitations History of Present Illness: 71-year-old M with PMHx significant for hypertension, diabetes (insulin dependent), hyperlipidemia, and hypothyroidism, chronic low back pain (Nerve stimulator), history of opiate abuse on methadone program, presented in ER for decreased appetite, insomnia. He states that " I don't want to do this anymore. " Although, patient denies suicidal ideation or attempt. No HI or hallucinations. Currently he denies any complaints other than chronic pain. Complains of constipation and mild rectal bleeding. 14 point ROS unremarkable. Compliant with DM And HTN meds at home and confirmed the doses. Denies, smoking, EtOH or drug use. His psychiatrist started him on Zoloft 3 days ago, reports noncompliance. Allergies/Medications Allergies: Coded Allergies: Penicillins (Severe, ANAPHYLAXIS 04/10/15) Home Med list Amlodipine Besylate 5 MG TABLET 1 TAB PO DAILY HIGH BLOOD PRESSURE (Reported) Aspirin (Ecotrin*) 81 MG TABLET.DR 1 TAB PO DAILY HEART/BLOOD (Reported) Azilsartan Med/Chlorthalidone (Edarbyclor 40-25 MG Tablet) 40 MG-25 MG TABLET 1 TAB PO DAILY BP (Reported) Diltiazem HCl (Diltiazem 24HR ER) 240 MG CAP.ER.24H 1 CAP PO DAILY HEART/BP ( Reported) Insulin NPL/Insulin Lispro (Humalog Mix 75-25 Kwikpen) 100 UNIT/ML (75-25) INSULN.PEN 34 UNITS SC BID DIABETES (Reported) Take 30 units before breakfast Take 30 units before dinner Levothyroxine Sodium (Synthroid) 112 MCG TABLET 2 TAB PO DAILY THYROID ( Reported) Methadone HCl 5 MG/5 ML SOLUTION 101 MG PO DAILY CHRONIC PAIN (Reported) Compliance With Home Meds: GOOD Past History Travel History Traveled to [place] past 21 day No Medical History Neurological: NONE EENT: cataracts Cardiovascular: hypertension, hyperlipidemia Respiratory: NONE Gastrointestinal: NONE Hepatic: NONE Renal: NONE Musculoskeletal: chronic back pain, osteoarthritis, LUMBAR FXS STIMULATOR IN BACK Psychiatric: opioid dependence, substance abuse, on methadone Endocrine: diabetes, hypothyroidism Blood Disorders: NONE Cancer(s): NONE [employer]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 Home Who Do You Live With? spouse Services at Home: None Primary Language: Tuvaluan Smoking Status: Never Smoked ETOH Use: denies use Illicit Drug Use: denies illicit drug use Functional Ability ADLs Independent: dressing, eating, toileting, bathing. Ambulation: independent IADLs Independent: shopping, housework, finances, food prep, telephone, transportation , medication admin. Sexual History Past Sexual History Unobtainable at this time Employment History Employment Retired Profession/Employer retired Review of Systems Review of Systems Constitutional: Reports: no symptoms. Exam & Diagnostic Data Last 24 Hrs of Vital Signs/I&O Vital Signs Date Time Temp Pulse Resp B/P B/P Pulse O2 O2 Flow FiO2 Mean Ox Delivery Rate 06/06 2023 98.0 71 118/55 06/05 1945 97.7 70 18 120/60 95 Room Air 06/05 1639 97.3 79 18 153/72 96 06/05 1149 98.0 82 18 110/71 96 Room Air Intake & Output 06/05 0000 06/05 0800 06/05 1600 Intake Total 240 Output Total Balance 240 Intake, Oral 240 Patient 113.398 kg Weight Weight Reported by Patient Measurement Method Physical Exam General Appearance Alert, Oriented X3, Cooperative, No Acute Distress Skin No Rashes, No Breakdown HEENT Atraumatic, PERRLA, EOMI Neck Supple, No JVD, No thryomegaly, +2 Carotid Pulse wo Bruit Lymphatic Cervical nl Cardiovascular Regular Rate, Normal S1, Normal S2, No Murmurs Lungs Clear to Auscultation, Normal Air Movement Abdomen Normal Bowel Sounds, Soft, No Tenderness Neurological Exam Findings: Normal Gait, Normal Speech, Strength at 5/5 X4 Ext, Normal Tone, Sensation Intact, Cranial Nerves 3-12 NL, Reflexes 2+ Cranial Nerves II through XII: 3 to 12 intact Extremities No Clubbing, No Cyanosis, No Edema Vascular Normal Pulses Last 24 Hrs of Labs/Wero: Laboratory Tests 06/05/17 1330: Urine Opiates Screen < 100, Methadone Screen > 735 H, Barbiturate Screen < 60, Ur Phencyclidine Scrn 10.40, Amphetamines Screen < 100, U Benzodiazepines Scrn < 85, Urine Cocaine Screen < 50, Urine Cannabis Screen < 5.00, Urinalysis LIGHT H , Urine Color YEL, Urine Clarity CLEAR, Urine pH 6.5, Ur Specific [place] 1.020, Urine Protein TRACE H, Urine Ketones TRACE H, Urine Nitrite NEG, Urine Bilirubin NEG, Urine Urobilinogen 1.0, Ur Leukocyte Esterase NEG, Ur Microscopic SEDIMENT EXAMINED, Urine WBC RARE, Ur Epithelial Cells RARE, Hyaline Casts RARE H, Urine Hemoglobin NEG, Urine Glucose 100 H 06/05/17 1321: Anion Gap 11, Estimated GFR 43 L, BUN/Creatinine Ratio 18.1, Glucose 250 H, Hemoglobin A1c Pending, Calcium 9.1, Total Bilirubin 0.7, AST 40, ALT 57, Alkaline Phosphatase 106, Total Protein 7.1, Albumin 4.0, Globulin 3.1, Albumin/ Globulin Ratio 1.3, Triglycerides 232 H, Cholesterol 237 H, LDL Cholesterol, Calc 135 H, HDL Cholesterol 56, Cholesterol/HDL Ratio 4, TSH &T3 &Free T4 Intrp 1.180, CBC w Diff NO MAN DIFF REQ, RBC 4.48 L, MCV 92.4, MCH 30.5, MCHC 33.0, RDW 13.6, MPV 7.4, Gran % 73.1, Lymphocytes % 18.3 L, Monocytes % 7.6, Eosinophils % 0.7, Basophils % 0.3, Absolute Granulocytes 6.5, Absolute Lymphocytes 1.6, Absolute Monocytes 0.7 H, Absolute Eosinophils 0.1, Absolute Basophils 0, Serum Alcohol < 10.0 Assessment/Plan Assessment: # Depression : agree with psych plan # DM : Patient is on Humalog mix 75/25 BID at home. Converted it to Novolog 70/ 30 Bid # HTN : continue amlodipine, Diltiazem and edarbyclor (took medication this morning and he will ask his to bring that from med home in AM) . # hypothyroidism : continue levothyroxine 224 MCG # HLD : continue statin # chronic back pain : continue methadone. # elevation in creatinine : mild, continue gentle hydration. Patient on Azilsartan and chlorthalidone : need to repeat creatinine outpatient. # constipation : bowel regimen As Ranked By This Provider Problem List: 1. Depression 2. JIGNA (acute kidney injury) 3. Hypothyroidism 4. Hypertension 5. Diabetes Miscellaneous Miscellaneous Documentation Attending Case Discussed With: Noah Whitehead MD Primary Care Physician: Rosas Felder MD Patient sees these Specialists unknown Level of Patient Care: [facility] Mirza Attending MD Review Statement Attending Statement Attending MD Statement: I interviewed and note H and P
[2017-06-05] MEDS ORDERED: AMLODIPINE BESYL5 M1 PO (21:46)
--- NOTE | 2017-06-06 00:53 | Admission Certification ---
Admission Certification Certification Statement - As attending physician, I certify that at the time of - admission, based on clinical presentation, severity of - symptoms, need for further diagnostic testing and - therapeutic interventions, and risk of adverse outcomes - without in-hospital treatment, in my clinical assessment, - this patient requires an acute hospital stay for a minimum - of two nights or longer. I have also considered psychsocial - factors such as support system, advanced age, financial - issues, cognitive issues, and failed out-patient treatments, - past re-admission history, safety of patient, and lack of - compliance as applicable. Specific rationale supporting this admission is: Major depression with suicidal ideation
[2017-06-06 08:07] VITALS: BP 120/63
--- NOTE | 2017-06-06 11:08 | CPS PROVIDER INIT ASMT PSYCH ---
Psychiatric Admission Condenser Tube Tender's Note Reviewed: Yes Patient Seen and Examined: Yes Identifying Information: older white man with walker Chief Complaint: depression Reaction to Hospitalization: not happy History of Present Illness Onset of Illness: months or longer ago Circumstances Leading to Admission: severe pain , hopeless, helpless and poor future orientation Problem(s) Justifying Need for Admission: passive si Other HPI: 71 year old man with a number of medical problems including chronic pain on methadone, presented to ED with depression, anxiety and SI. He was helpless, hopeless with passive SI without a plan. He stated that he feared everything and was nervous most of the time. He has had anhedonia and been unable to focus. He lives with his of over 30 years and has a fair relationship. He was hospitalized in March for serotonin syndrome, due to methadone and combination of paxil, cymbalta, and had some AMS changes. He was seen by outpatient therapist and put on low dose of Zoloft however noted some erratic behavior and overall did not do well. also she ahd reported he did poorly on other SSRIs in the past. He presents as tired, irritated and depressed. He is a poor historian, with significant anhedonia, poor motivation to speak and not engaged. He c/o pain from the bed, poor appetite and low energy in addition to his pain. He makes intermittent comments about not having anything good in his life and not being able to move forward, but does not have active SI or any actual plans. Stated that he is not functioning and doesnt know if it will get better. He is not psychotic or manic. Past Psychiatric History Past Diagnosis(es)- if any: mdd Past Precipitating Factors- if any: severe pain - Include inpatient and outpatient treatment Treatment History: inpatient 30 years ago after he quit using narcotic pills and was having relationship difficulties. denied suicide attempts. in outpatient tx now. History of Suicide Attempts or Gestures denied Substance Abuse History: 30 years ago last alcohol drink, he denied any regular use however in record he was noted to have more significant use as a younger adult. hx narcotic use many years ago, now on methadone for pain Allergies: Coded Allergies: Penicillins (Severe, ANAPHYLAXIS 04/10/15) Home Med List: see med rec - Include any medical condition(s) that may - impact the patient's recovery/remission Past Medical History: HTN, DM insulin dependent, HLD, overweight, chronic pain, osteoarthritis, hypothyroidism Past History Medical History Neurological: NONE EENT: cataracts Cardiovascular: hypertension, hyperlipidemia Respiratory: NONE Gastrointestinal: NONE Hepatic: NONE Renal: NONE Musculoskeletal: chronic back pain, osteoarthritis, LUMBAR FXS STIMULATOR IN BACK Psychiatric: opioid dependence, substance abuse, on methadone Endocrine: diabetes, hypothyroidism Blood Disorders: NONE Cancer(s): NONE 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/Reproductive: NONE History of MRSA: No History of VRE: No History of CDIFF: No Surgical History Surgical History: appendectomy, cholecystectomy, cataract Removal, EXPLORATORY ABD SX BENIGN TUMOR REM CHEST WA THYROIDECTOMY CHEST MASS REMOVED Psychiatric Family/Social Hx Family History Psychiatric Illness: denies Substance Use: unknown Suicides: denies Social History Living Situation: lives with , grandchild and children live close by Significant Relationships (family/friends): , 4 year old granddaughter Education: completed some school Vocation/Occupation: 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 Legal: no arrests Healthly Behaviors Screening Tobacco Screening Tobacco Use from ED Docu: Never used - If tobacco counseling indicated - the following topics are required. - #1 Recognizing dangerous situations. - #2 Coping Skills. - #3 Basic information about quitting. Status of Tobacco Cessation Counseling: Not Applicable Cessation Med Status Not Applicable Alcohol Screening - ETOH screen POS if BAL >=80 or Audit-C>= M4/F3 Audit-C Score from Diag Assess: 0 Blood Alcohol Level: Laboratory Tests 06/05 1321 Toxicology Serum Alcohol (<10 MG/DL) < 10.0 Alcohol Use Screening Results: Neg per Audit C &/or BAL - If ETOH counseling indicated - the following topics are required. - #1 Express concern about the patient's - drinking at unhealthy levels, include informing - of national norms for moderate drinking: - men <= 14 drinks/week, max 4 drinks/occasion - women <= 7 drinks/week, max 3 drinks/occasion - #2 Providing feedback, including linking alcohol to - negative physical effects (liver injury, hypertension) - negative emotional effects (relationship problems and - depression) - negative occupational consequences (reduced work - performance) - #3 Advising the patient to abstain from alcohol or - to drink below national norms for moderate drinking - (as listed above). Status of ETOH Use Counseling: N/A B/C NO ETOH Use Metabolic Screening - Screen if on a Neuroleptic Medication - Metabolic screening should include: - Blood Pressure, BMI, Glucose or Hgb A1c, & a - Lipid profile from within the past 365 days. Metabolic Screening () Not Applicable, patient not on a neuroleptic. OR () Patient on a neuroleptic(s) . Enter below results for Hemoglobin A1C, and lipid panel if obtained during the last 365 days. BMI: 34.300 Blood Pressure: 120/63 Laboratory Results From [facility] (If applicable): Exam and Plan Mental Status Examination Ambulation Status: with walker, slow Appearance: poor hygiene Attitude towards examiner: cooperative Psychomotor activity: slowed Behavior: calm Quality of speech: normal Affect: constricted Mood: depressed Suicidal Ideation: none active Homicidal Ideation: none Hallucinations: none Paranoid/Delusional Material: none Difficulties with thought organization: mild, more constricted thinking Insight: fair Judgment: fair Orientation: x3 Cognition: grossly intact, aware of president, date, location where we are Memory Function: fair, some impairments due to poor motivation/irritability Estimate of intellectual functioning: fair Assets/Strengths Patient Identified Assets/Strengths: who is supportive, work hx, has children and grandchild whom he wants to live for Impression/Plan Impression and Plan: 71 year old man with a number of medical problems including chronic pain on methadone, presented to ED with depression, anxiety and SI. He was helpless, hopeless with passive SI without a plan. He has severe sx of MDD, with anhedonia , constricted thinking, depressed mood, poor appetite and poor sleep. He was recently medically admitted with serotonin syndrome, and has had a poor reaction to zoloft being re-introduced recently. He is a poor historian due to his severe sx and frustration. He does not wish to discuss meds and has poor recall of what has been helpful or not in the past. Plan: - will hold trazodone for sleep at this time due to serotonergic fx. Informed him that gabapentin could be helpful. - does not want anything that will "make it worse" and is not able to really discuss different treatment options today, more somatically focused ( constipation and poor sleep per him). Will discuss other options, consideration of abilify b/c of less serotonin fx and impact on MDD with quicker onset of action with him tmr. - continue methadone, he was on 93mg to 91mg taper and here we have 92.5mg dose, will maintain on this dose. - family meeting next week when is present as it appears she may be a better historian than him. - Include all active medical diagnosis that require tx DSM 5 Diagnosis(es): mdd severe - Initial Tx Plan for Active Psych & Medical Conditions Treatment Plan: see previous - Factors that would help patient function - in a less restrictive setting. Factors: severe MDD sx, chronic pain as main risk factors. Address with evaluating for any SI regularly, walker for pain, adjusting bed/moving room if possible, continuemethadone
[2017-06-06 12:14] VITALS: BP 117/58
[2017-06-06 15:54] VITALS: BP 118/53
[2017-06-06 20:03] VITALS: BP 125/67
[2017-06-07 07:54] VITALS: BP 128/63
[2017-06-07 12:14] VITALS: BP 125/51
--- NOTE | 2017-06-07 12:31 | Cons- Endocrinology ---
General Information and HPI Consulting Request Date of Consult: 06/07/17 Requested By: CAMILO Mirza Reason for Consult: management of uncontrolled diabetes type 2. Source of Information: patient, old records Exam Limitations: patient is forgetful History of Present Illness: 71-year-old M with PMHx significant for hypertension, diabetes type 2, chronic renal insufficiency, hyperlipidemia, and hypothyroidism, chronic low back pain ( Nerve stimulator), history of opiate abuse on methadone program, presented in ER for decreased appetite, insomnia and forgetfullness. He was Humalog 75/25 mix 40 units twice a day at home. In hospital, he was initially put on Novolog 70/30 mix 30 units twice a day. His FSGs were > 300 and then Novolog 70/30 mix was increased to 40 units twice a day. Since then, his FSGs were 262, 225, 220 and 301. Allergies/Medications Allergies: Coded Allergies: Penicillins (Severe, ANAPHYLAXIS 04/10/15) Home Med List: Amlodipine Besylate 5 MG TABLET 1 TAB PO DAILY HIGH BLOOD PRESSURE (Reported) Aspirin (Ecotrin*) 81 MG TABLET.DR 1 TAB PO DAILY HEART/BLOOD (Reported) Azilsartan Med/Chlorthalidone (Edarbyclor 40-25 MG Tablet) 40 MG-25 MG TABLET 1 TAB PO DAILY BP (Reported) Diltiazem HCl (Diltiazem 24HR ER) 240 MG CAP.ER.24H 1 CAP PO DAILY HEART/BP ( Reported) Insulin NPL/Insulin Lispro (Humalog Mix 75-25 Kwikpen) 100 UNIT/ML (75-25) INSULN.PEN 34 UNITS SC BID DIABETES (Reported) Take 30 units before breakfast Take 30 units before dinner Levothyroxine Sodium (Synthroid) 112 MCG TABLET 2 TAB PO DAILY THYROID ( Reported) Methadone HCl 5 MG/5 ML SOLUTION 101 MG PO DAILY CHRONIC PAIN (Reported) Review of Systems Review of Systems Constitutional: Reports: see HPI. Cardiovascular: Denies: chest pain. Respiratory: Denies: short of breath. GI: Denies: abdominal pain. Genitourinary: Denies: dysuria. Hematologic/Endocrine: Denies: polyuria, polydipsia. 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 Home Who Do You Live With? spouse Services at Home: None Primary Language: Mongolian Smoking Status: Never Smoked ETOH Use: denies use Illicit Drug Use: denies illicit drug use Functional Ability ADLs Independent: dressing, eating, toileting, bathing. Ambulation: independent IADLs Independent: shopping, housework, finances, food prep, telephone, transportation , medication admin. Employment History Employment: Retired Profession/Employer: retired Exam & Diagnostic Data Last 24 Hrs of Vital Signs/I&O Vital Signs Date Time Temp Pulse Resp B/P B/P Pulse O2 O2 Flow FiO2 Mean Ox Delivery Rate 06/07 1214 77 125/51 06/07 0754 96.7 81 128/63 06/06 2002 97.5 89 125/67 06/06 1554 80 118/53 Physical Exam General Appearance: no apparent distress Neck: normal inspection Respiratory: lungs clear Cardiovascular: regular rate/rhythm Gastrointestinal: soft, non-tender Extremities: no edema Labs/Wero Results: Laboratory Tests 06/05 1330 Toxicology Urine Opiates Screen (>2000 NG/ML) < 100 Methadone Screen (>300 NG/ML) > 735 H Barbiturate Screen (>200 NG/ML) < 60 Ur Phencyclidine Scrn (>25 NG/ML) 10.40 Amphetamines Screen (>1000 NG/ML) < 100 U Benzodiazepines Scrn (>200 NG/ML) < 85 Urine Cocaine Screen (>300 NG/ML) < 50 Urine Cannabis Screen (>50 NG/ML) < 5.00 Urines Urinalysis LIGHT H Urine Color (YEL,AMB,STR) YEL Urine Clarity (CLEAR) CLEAR Urine pH (5.0 - 8.0) 6.5 Ur Specific [place] (1.001 - 1.035) 1.020 Urine Protein (NEG,<30 MG/DL) TRACE H Urine Ketones (NEG) TRACE H Urine Nitrite (NEG) NEG Urine Bilirubin (NEG) NEG Urine Urobilinogen (0.1 - 1.0 EU/dl) 1.0 Ur Leukocyte Esterase (NEG) NEG Ur Microscopic SEDIMENT EXAMINED Urine WBC (0 - 2 /HPF) RARE Ur Epithelial Cells (NONE,FEW) RARE Hyaline Casts (0/LPF) RARE H Urine Hemoglobin (NEG) NEG Urine Glucose (N MG/DL) 100 H 06/05 1321 Chemistry Sodium (137 - 145 mmol/L) 135 L Potassium (3.5 - 5.1 mmol/L) 4.7 Chloride (98 - 107 mmol/L) 94 L Carbon Dioxide (22 - 30 mmol/L) 30 Anion Gap (5 - 16) 11 BUN (9 - 20 mg/dL) 29 H Creatinine (0.7 - 1.2 mg/dL) 1.6 H Estimated GFR (>60 ml/min) 43 L BUN/Creatinine Ratio (7 - 25 %) 18.1 Glucose (65 - 99 mg/dL) 250 H Hemoglobin A1c (4.2 - 5.8 %) Pending Calcium (8.4 - 10.2 mg/dL) 9.1 Total Bilirubin (0.2 - 1.3 mg/dL) 0.7 AST (17 - 59 U/L) 40 ALT (21 - 72 U/L) 57 Alkaline Phosphatase (< 127 U/L) 106 Total Protein (6.3 - 8.2 g/dL) 7.1 Albumin (3.5 - 5.0 g/dL) 4.0 Globulin (1.9 - 4.2 gm/dL) 3.1 Albumin/Globulin Ratio (1.1 - 2.2 %) 1.3 Triglycerides (<150 mg/dL) 232 H Cholesterol (< 200 MG/DL) 237 H LDL Cholesterol, Calc (65 - 129 mg/dL) 135 H HDL Cholesterol (40 - 60 mg/dL) 56 Cholesterol/HDL Ratio (0.00 - 4.88 %) 4 TSH &T3 &Free T4 Intrp (0.27 - 4.20 uIU/mL) 1.180 Hematology CBC w Diff NO MAN DIFF REQ WBC (4.8 - 10.8 /CUMM) 8.9 RBC (4.70 - 6.10 /CUMM) 4.48 L Hgb (14.0 - 18.0 G/DL) 13.7 L Hct (42 - 52 %) 41.4 L MCV (80.0 - 94.0 FL) 92.4 MCH (27.0 - 31.0 PG) 30.5 MCHC (33.0 - 37.0 G/DL) 33.0 RDW (11.5 - 14.5 %) 13.6 Plt Count (130 - 400 /CUMM) 281 MPV (7.4 - 10.4 FL) 7.4 Gran % (42.2 - 75.2 %) 73.1 Lymphocytes % (20.5 - 51.1 %) 18.3 L Monocytes % (1.7 - 9.3 %) 7.6 Eosinophils % (0 - 5 %) 0.7 Basophils % (0.0 - 2.0 %) 0.3 Absolute Granulocytes (1.4 - 6.5 /CUMM) 6.5 Absolute Lymphocytes (1.2 - 3.4 /CUMM) 1.6 Absolute Monocytes (0.10 - 0.60 /CUMM) 0.7 H Absolute Eosinophils (0.0 - 0.7 /CUMM) 0.1 Absolute Basophils (0.0 - 0.2 /CUMM) 0 Toxicology Serum Alcohol (<10 MG/DL) < 10.0 Assessment/Plan Assessment/Plan 71-year-old M with PMHx significant for hypertension, diabetes type 2, chronic renal insufficiency, hyperlipidemia, and hypothyroidism, chronic low back pain ( Nerve stimulator), history of opiate abuse on methadone program, presented in ER for decreased appetite, insomnia and forgetfullness. His DM hasn't been controlled. plan: 1. Novolog 6 units x 1 as his FSG before lunch was 301 and he received Novolog 70/30 mix 40 units this morning; 2. start Levemir 25 units twice a day tonight; 3. start Novolog coverage before meals at dinner time today; detail see the inpatient DM order; 4. start Novolog coverage at bedtime; detail see the inpatient DM order; 5. monitor FSGs. will follow. Inpatient Diabetes Orders Before Each Meal: Bolus Insulin: Novolog < 80 mg/dl: no coverage 80-100 mg/dl: 10 units 101-120 mg/dl: 10 units 121-150 mg/dl: 10 units 151-200 mg/dl: 12 units 201-250 mg/dl: 14 units 251-300 mg/dl: 16 units 301-350 mg/dl: 18 units 351-400 mg/dl: 19 units > 400 mg/dl: 20 units Bedtime: Bolus Insulin: Novolog < 80 mg/dl: no coverage 80-100 mg/dl: no coverage 101-120 mg/dl: no coverage 121-150 mg/dl: no coverage 151-200 mg/dl: no coverage 201-250 mg/dl: no coverage 251-300 mg/dl: 2 units 301-350 mg/dl: 3 units 351-400 mg/dl: 4 units > 400 mg/dl: 5 units Consult Acknowledgment - Thank you for your consult request.
--- NOTE | 2017-06-07 13:06 | CP SOUTH PROGRESS NOTE PSYCH ---
Psych (Inpt) Progress Note Progress Note Include the following elements, when applicable: Involvement in the active treatment of the patient with behavioral observations of the patient and the patient's response to the treatment. Review of the ongoing treatment process in the context of the treatment plan. Indication of how multi-disciplinary staff members are carrying out the treatment plan. Plans for future interventions and recommendations for revision of the treatment plan. Liaison with other physicians/providers. Progress Note: Focused on his meds, stated that he is scared of med changes, stated that he is trying to make himself feel better. Yesterday we discussed med changes with his present in the afternoon including abilify, seroquel as adjuncts for depressive sx, since he is too scared to take an antidepressant - Discussed with him and that these are not 1st line for depression however due to his refusal to try almost any SSRI for fear (even when his was present, she acknowledged that he took zoloft for just a few days and didn't give it a fair shot, prior to stopping it, encouraging him to consider other meds) or worsening sx. some concern that abilify would worsen anxiety but he agreed to try low dose 2mg abilify for now. He is somewhat confused, appears very anxious and repeating himself, needing frequent reassurance. MSE: elderly man, using walker, overweight. Grooming is fair. His speech is rapid, regular volume. His moodis neutral to anxiou and affect is full and reactive. His thinking is derailed at times, needy, needs reassurance, perseverative, anxious. He is pressured and focusing on his med changes. He is not delusional and no evidence of internal preoccupation. Insight and judgment are fair. 71 year old man with a number of medical problems including chronic pain on methadone, presented to ED with depression, anxiety and SI. He was helpless, hopeless with passive SI without a plan. He has severe sx of MDD, with anhedonia , constricted thinking, depressed mood, poor appetite and poor sleep. He was recently medically admitted with serotonin syndrome, and has had a poor reaction to zoloft being re-introduced recently. He is a poor historian, needs near constant reassurance and is perseverative. Plan: - agreed to try abilify 2mg, 1st dose now, as adjunct for depressive sx. discussed AE including risk of increasing anxiety initially, weight gain, shakiness.
[2017-06-07 15:50] VITALS: BP 98/51
[2017-06-07 19:41] VITALS: BP 112/54
[2017-06-08 08:04] VITALS: BP 131/57
--- NOTE | 2017-06-08 08:30 | PN- Diabetes ---
Assessment/Plan Diabetes Assessment: 71-year-old M with PMHx significant for hypertension, diabetes type 2, chronic renal insufficiency, hyperlipidemia, and hypothyroidism, chronic low back pain ( Nerve stimulator), history of opiate abuse on methadone program, presented in ER for decreased appetite, insomnia and forgetfullness. He was Humalog 75/25 mix 40 units twice a day at home. In hospital, he was put on Levemir 25 units twice a day, Novolog coverage before meal and Novolog coverage at bedtime. Before Each Meal: Bolus Insulin: Novolog < 80 mg/dl: no coverage 80-100 mg/dl: 10 units 101-120 mg/dl: 10 units 121-150 mg/dl: 10 units 151-200 mg/dl: 12 units 201-250 mg/dl: 14 units 251-300 mg/dl: 16 units 301-350 mg/dl: 18 units 351-400 mg/dl: 19 units > 400 mg/dl: 20 units Bedtime: Bolus Insulin: Novolog < 80 mg/dl: no coverage 80-100 mg/dl: no coverage 101-120 mg/dl: no coverage 121-150 mg/dl: no coverage 151-200 mg/dl: no coverage 201-250 mg/dl: no coverage 251-300 mg/dl: 2 units 301-350 mg/dl: 3 units 351-400 mg/dl: 4 units > 400 mg/dl: 5 units His FSGs were 301, 209 and 198. Plan: continue the current insulin regimen for now. monitor FSGs. will follow. Subjective Subjective: He stated that he has been careful on his diet. Objective Last 24 Hrs of Vital Signs/I&O Vital Signs Date Time Temp Pulse Resp B/P B/P Pulse O2 O2 Flow FiO2 Mean Ox Delivery Rate 06/08 0804 96.0 98 2 131/57 06/07 1941 97.3 79 112/54 06/07 1550 80 98/51 06/07 1214 77 125/51
[2017-06-08 12:17] VITALS: BP 134/60
--- NOTE | 2017-06-08 15:15 | CP SOUTH PROGRESS NOTE PSYCH ---
Psych (Inpt) Progress Note Progress Note I reviewed the covering psychiatrist notes from the weekend and Mental status examination: The patient was alert and oriented to time, place, and person. Focused on constipation/scared of med changes, appears very anxious using walker, overweight. speech was normal, his mood has been depressed and anxious affect is full and reactive. His thinking is derailed at times, needy, needs reassurance, perseverative, anxious. The patient denied hallucinations and there was no evidence of delusions. Assessment: 71 year old man with a number of medical problems including chronic pain on methadone, presented to ED with depression, anxiety and SI. He was helpless, hopeless with passive SI without a plan. He has severe sx of MDD, with anhedonia , constricted thinking, depressed mood, poor appetite and poor sleep. He was recently medically admitted with serotonin syndrome, and has had a poor reaction to zoloft being re-introduced recently. Treatment Plan Update: D/C Abilify Dulcolax Suppository and may have tablets tonight if still constipated Add PRN Ativan Start Wellbutrin 75 mg daily
[2017-06-08 16:26] VITALS: BP 123/66
--- NOTE | 2017-06-08 18:39 | SOCIAL WORKER PROG NOTE PSYCH ---
Social Work Progress Note Progress Note This senior mortgage underwriter met with patient. Patient stated that he came to the hospital due to an interaction between his medications and needing medication stabilization. He stated that he is prescribed Methadone for pain management through [facility]. Patient stated that he has a psychiatrist at [facility] and would be agreeable to attending IOP upon discharge. Patient was also agreeable to a family meeting with his , Alee Roach ([phone]). Patient denied SI/HI/AH/VH. Karely, medical student, conducted a MSE with the patient at the end of this meeting.
[2017-06-08 19:54] VITALS: BP 130/62
[2017-06-09 07:42] VITALS: BP 140/52
--- NOTE | 2017-06-09 08:39 | PN- Diabetes ---
Assessment/Plan Diabetes Assessment: 71-year-old M with PMHx significant for hypertension, diabetes type 2, chronic renal insufficiency, hyperlipidemia, and hypothyroidism, chronic low back pain ( Nerve stimulator), history of opiate abuse on methadone program, presented in ER for decreased appetite, insomnia and forgetfullness. He was Humalog 75/25 mix 40 units twice a day at home. Repeat HbA1c was 9.0%. In hospital, he was put on Levemir 25 units twice a day, Novolog coverage before meal and Novolog coverage at bedtime. Before Each Meal: Bolus Insulin: Novolog < 80 mg/dl: no coverage 80-100 mg/dl: 10 units 101-120 mg/dl: 10 units 121-150 mg/dl: 10 units 151-200 mg/dl: 12 units 201-250 mg/dl: 14 units 251-300 mg/dl: 16 units 301-350 mg/dl: 18 units 351-400 mg/dl: 19 units > 400 mg/dl: 20 units Bedtime: Bolus Insulin: Novolog < 80 mg/dl: no coverage 80-100 mg/dl: no coverage 101-120 mg/dl: no coverage 121-150 mg/dl: no coverage 151-200 mg/dl: no coverage 201-250 mg/dl: no coverage 251-300 mg/dl: 2 units 301-350 mg/dl: 3 units 351-400 mg/dl: 4 units > 400 mg/dl: 5 units His FSGs were 190, 164, 213 and 216. Plan: 1. increase Levemir to 28 units twice a day; 2. continue the current Novolog coverage before meals and Novolog coverage at bedtime; 3. monitor FSGs. will follow. Subjective Subjective: He stated that he has constipation. He has been on colace, dulcolax, milk of magnesium as needed. Objective Last 24 Hrs of Vital Signs/I&O Vital Signs Date Time Temp Pulse Resp B/P B/P Pulse O2 O2 Flow FiO2 Mean Ox Delivery Rate 06/09 0742 98.3 83 140/52 06/08 1953 97.3 77 130/62 06/08 1626 93 123/66 06/08 1217 88 134/60
[2017-06-09 12:15] VITALS: BP 100/51
--- NOTE | 2017-06-09 13:25 | CP SOUTH PROGRESS NOTE PSYCH ---
Psych (Inpt) Progress Note Progress Note The patient's progress, treatment plan, and aftercare plans were reviewed in the treatment team meeting this morning. The treatment team included: OMERO, RN, Group and activity therapy staff, and psychiatrist. Vital Signs Date Time Temp Pulse B/P 06/09 1215 77 100/51 06/09 0742 98.3 83 140/52 06/084 97.3 77 130/62 Mental Status Examination: The patient reported that he was feeling irritable and down today. He reported that he feels that the nursing staff feels that he is "a pain in the ass." He reported that he still feeling pretty anxious and jittery and reported that he at the same time does not want to feel like a "zombie" He was alert and oriented to time, place, and person. His speech was normal it wasn't slurred and it wasn't pressured He did complain about constipation today but he was not as perseverative and obsessive about it as yesterday Is using a local he seems to be steady on his feet and was able to walk short distances without the walker without any issues walk a few steps on a couple occasions without the walker without any issues and he seemed to be steady. He reported that at home he only uses a cane but that is not allowed on this unit. He reported that he had some passive wishes of but no thoughts of suicide in the past 24 hours. He denied hallucinations and did not seem to be responding to internal stimuli or to be internally preoccupied. He denied feeling paranoid and there were no delusions during the interview although he was coherent he is tends to be very perseverative/very obsessive in his thought process, he denied compulsions Assessment: Lino is a 71-year old White male presented to ED with depression, anxiety and SI. He was helpless, hopeless with passive SI without a plan. He has severe sx of MDD, with anhedonia, constricted thinking, depressed mood, poor appetite and poor sleep. Treatment Plan Update: Add MiraLAX 17 g per day Change PRN Ativan to 1 mg every 6 hours as needed for anxiety and agitation irritability or insomnia Starting tomorrow increase Wellbutrin to Wellbutrin XL 150 mg every morning Start Wellbutrin 75 mg daily
[2017-06-09 16:02] VITALS: BP 137/67
--- NOTE | 2017-06-09 16:45 | SOCIAL WORKER PROG NOTE PSYCH ---
Social Work Progress Note Progress Note This specifications writer met with patient. He clarified that he has been taking Methadone for pain management. He reported past substance use. Patient shared questions that he had about medications currently prescribed to him and was encouraged to bring these questions to the psychiatrist and/or nurses. Patient agreed to do so. Patient discussed feeling uncomfortable around peers and staff at times; he acknowledged that this was likely his own paranoia. This specifications writer and patient discussed strategies to manage his symptoms, such as utilizing groups to discuss them and avoiding isolation. Patient denied SI/HI/AH/VH. He was agreeable to a family meeting with his . Patient's , Alee, was contacted by a phone a family meeting has been scheduled for 06/10/17 at 1pm.
[2017-06-09 19:45] VITALS: BP 139/65
[2017-06-10 07:55] VITALS: BP 141/82
--- NOTE | 2017-06-10 08:47 | PN- Diabetes ---
Assessment/Plan Diabetes Assessment: 71-year-old M with PMHx significant for hypertension, diabetes type 2, chronic renal insufficiency, hyperlipidemia, and hypothyroidism, chronic low back pain ( Nerve stimulator), history of opiate abuse on methadone program, presented in ER for decreased appetite, insomnia and forgetfullness. He was Humalog 75/25 mix 40 units twice a day at home. Repeat HbA1c was 9.0%. In hospital, he was put on Levemir 28 units twice a day, Novolog coverage before meal and Novolog coverage at bedtime. His FSGs were 212, 230, 181 and 258. Plan: continue the current insulin regimen for now; monitor FSGs. will follow. Subjective Subjective: He still has constipation. But he eats well. Objective Last 24 Hrs of Vital Signs/I&O Vital Signs Date Time Temp Pulse Resp B/P B/P Pulse O2 O2 Flow FiO2 Mean Ox Delivery Rate 06/10 0755 97.2 74 141/82 06/09 1945 97.5 89 139/65 06/09 1602 78 137/67 06/09 1215 77 100/51
[2017-06-10 12:03] VITALS: BP 142/71
--- NOTE | 2017-06-10 13:51 | CP SOUTH PROGRESS NOTE PSYCH ---
Psych (Inpt) Progress Note Progress Note The patient's progress, treatment plan, and aftercare plans were reviewed in the treatment team meeting this morning. The treatment team included: OMERO, RN, Group and activity therapy staff, and psychiatrist. There was a family meeting with the patient and his Alee with Nicci Lazo LCSW and Milla Vital Signs Date Time Temp Pulse B/P B/P Pulse O2 FiO2 06/10 1203 82 142/71 06/10 0755 97.2 74 141/82 06/09 1945 97.5 89 139/65 06/09 1602 78 137/67 Mental Status Examination: The patient was alert and oriented. He was very anxious this morning and was given 1 dose of Ativan 1 mg. The family meeting took place and at 1:00 in the afternoon and the patient of the tiny bit tired. He did acknowledge that he was feeling irritable and frustrated today. He continues to be obsessive and very anxious and difficult to reassure His speech was normal it wasn't slurred and it wasn't pressured he seems to be steady on his feet and was able to walk without the walker without any issues/seemed to be steady. He reported that he had only a very fleeting thoughts of wishing in the past 24 hours (he sits for a second or 2) no thoughts of suicide in the past 24 hours. He denied hallucinations and did not seem to be responding to internal stimuli or to be internally preoccupied. He denied feeling paranoid and there were no delusions during the interview although he was coherent he is tends to be very perseverative/very obsessive in his thought process, he denied compulsions Assessment: Lino is a 71-year old White male who was admitted to the inpatient psychiatric unit at [facility] on 06/05/2017 because of passive SI without a plan. Treatment Plan Update: Add Sertraline Change PRN Ativan to 1 mg every 8 hours as needed for anxiety and agitation irritability or insomnia continue Wellbutrin XL 150 mg every morning
[2017-06-10 15:56] VITALS: BP 132/62
--- NOTE | 2017-06-10 16:54 | SOCIAL WORKER PROG NOTE PSYCH ---
Social Work Progress Note Progress Note Dr. Blake and this sql report writer met with patient and his for a family meeting. Patient's reviewed symptoms and concerns leading up to current hospitalization. Somatic preoccupations and inadequate medication trials were also reviewed. Patient's stated that he receives services from a visiting nurse, possibly through [facility], however, they were unsure if this name was correct. Discharge plans were also explored, and patient and his were both interested in [facility]. Upon their inquiry, this sql report writer contacted the [facility] regarding the patient's health insurance and was informed that it would be accepted. Patient's also stated that they will be switching to [employer] Medicare Advantage on August 09, 2017 and that they can keep Haris if they choose to do so.
[2017-06-10 19:27] VITALS: BP 133/64
[2017-06-11 07:41] VITALS: BP 126/53
--- NOTE | 2017-06-11 08:23 | PN- Diabetes ---
Assessment/Plan Diabetes Assessment: 71-year-old M with PMHx significant for hypertension, diabetes type 2, chronic renal insufficiency, hyperlipidemia, and hypothyroidism, chronic low back pain ( Nerve stimulator), history of opiate abuse on methadone program, presented in ER for decreased appetite, insomnia and forgetfullness. He was Humalog 75/25 mix 40 units twice a day at home. Repeat HbA1c was 9.0%. In hospital, he was put on Levemir 28 units twice a day, Novolog coverage before meal and Novolog coverage at bedtime. His FSGs were 247, 143, 167 and 200. Plan: 1. increase Levemir to 30 units twice a day; 2. continue the current Novolog coverage before meals and novolog coverage at bedtime; 3. monitor FSGs. will follow. Subjective Subjective: He still has constipation. Objective Last 24 Hrs of Vital Signs/I&O Vital Signs Date Time Temp Pulse Resp B/P B/P Pulse O2 O2 Flow FiO2 Mean Ox Delivery Rate 06/11 0741 97.4 75 126/53 06/10 1927 97.5 82 133/64 06/10 1556 76 132/62 06/10 1203 82 142/71
[2017-06-11 10:01] VITALS: BP 123/57
[2017-06-11] MEDS ORDERED: MIRALAX119 GM PO (10:20)
[2017-06-11] MEDS ORDERED: WELLBUTRIN XL150 M2 PO (10:20)
[2017-06-11] MEDS ORDERED: CLOTRIMAZOLE15 GM TOP (10:20)
[2017-06-11] MEDS ORDERED: SERTRALINE HCL25 MG PO (10:20)
--- NOTE | 2017-06-11 11:06 | Patient Discharge Instructions ---
Psych Discharge Inst General Discharge Information Reason for Admission: severe depression and anxiety, wishing Psy Discharge Primary Diag+ MDD Generalized Anxiety Psy Discharge Secondary Diag+ OCD spectrum Summary Tests/Major Procedures Lab Anion Gap 11 06/05/17 1321 BUN 29 mg/dL H 06/05/17 1321 BUN/Creatinine Ratio 18.1 % 06/05/17 1321 Carbon Dioxide 30 mmol/L 06/05/17 1321 Chloride 94 mmol/L L 06/05/17 1321 Creatinine 1.6 mg/dL H 06/05/17 1321 Estimated GFR 43 ml/min L 06/05/17 1321 Glucose 250 mg/dL H 06/05/17 1321 Hemoglobin A1c 9.0 % H 06/05/17 1321 Potassium 4.7 mmol/L 06/05/17 1321 Sodium 135 mmol/L L 06/05/17 1321 Studies Pending at DC: None Patient Instructions Contact Information Your Psychiatrist on [facility] was Anshul Blake MD * If you are experiencing an emergency related to this hospitalization, please call [phone] to contact the treating psychiatrist or the psychiatrist-on- call. * To Request a copy of your medical records, please contact the Medical Records Department at [phone]. * To request results of studies pending at the time of discharge, please call [phone]. * Continue your Medications until directed to stop by your Healthcare provider. General Medication Information Please continue to take your new medications and your continued home medications , unless otherwise indicated on your discharge medication list, or unless directed by your MD or [employer] PROCESS CONTROL TECHNICIAN to stop them. Special Instructions Diet Diabetic Activity As Tolerated Other Inst/Recommendations follow-up with your primary care physician - Tobacco Use Treatment Offered Post DC Medications Offered: Not Applicable Post DC Tobacco Treatment Plan: Not Applicable - EtOH/Drug Use D/O Treatment Offered Post DC Medications Offered: NA-No EtOH/Drug Use D/O Post DC EtOH/SubAbuse [place] Plan: NA-No EtOH/Drug Use D/O Metabolic Screening ([X]) Not Applicable, patient not on a neuroleptic. Advance Directives Does the Patient have Medical Advance Directives Yes/Copy not provided Does Pt have Psychiatric Advance Directives? No/Refused further info Does Patient have a Designated Surrogate Decision Maker: No Information About Psychiatric Advance Directives Provided? Refused Discharge Plan Post Hospital Treatment Plan: IOP
[2017-06-11] MEDS ORDERED: KLONOPIN0.5 M1 PO (11:10)
[2017-06-11] MEDS ORDERED: NOVOLOG MI100 UNIT/2 SC (11:45)
[2017-06-11 12:03] VITALS: BP 137/66
[2017-06-11 12:17] VITALS: BP 142/59
--- NOTE | 2017-06-11 17:33 | SOCIAL WORKER PROG NOTE PSYCH ---
See Addendum Social Work Progress Note Progress Note This instructional writer met with patient. Patient reported feeling anxious and acknowledged that this is typical for him. He stated that he felt that the Seroquel caused him "wierd dreams" and discussed this with Dr. Blake. He denied SI/HI/AH/ VH. He identified a safety plan in which he would utilize the crisis numbers and warm line numbers which are provided upon discharge. He identified prayer as a coping skill. Patient was agreeable to discharging today and discharge plans were reviewed. He stated that he will continue with [facility] for Methadone treatment, continue with visiting nurse services through [facility] nurse and accepted an intake with [facility] for today at 1:15pm. Per this instructional writer's discussion with Neisha Hennessy LPC ([facility]) and as discussed with Dr. Blake, patient was agreeable to frequent urine toxicology screens, signing an JOYCE for [facility] and not continuing with BZD beyond what he is prescribed by Dr. Blake upon discharge. Patient was informed that [facility] would not refill the BZD's. Dr. Blake stated that the patient will be prescribed 1mg of Klonopin for 1-2 weeks at night. Patient accepted the following appointments: - Per Rosas Grayson at [facility] - patient will go to [facility] tomorrow for his Methadone dose between 6am and 11:30am. He will meet with a doctor while he is there - Per Soila at [facility] - patient will be contacted by his nurse, Kate, tomorrow to schedule a time for her to visit him on 06/12/17 - [facility] - intake on 06/11/17 at 1:15pm Patient stated that he would call his for a ride home from the hospital today. As he has been using a walker periodically during this inpatient stay, patient stated that he has a walker at home should he need to use one. He stated that he will call his primary care provider to schedule an appointment and does not need one scheduled for him or referrals to any other providers. Faxed Referral(s) 1 Referred To: [facility] Transition of Care Documents sent: Health Summary Faxed to: [facility] Fax #: [phone] Faxed by: Braulio Lazo LCSW Date faxed: 05/03/18 Time Faxed: [phone] Faxed Referral(s) 2 Referred To: [facility] Transition of Care Documents sent: Health Summary Faxed to: [facility] Fax #: [phone] Faxed by: Braulio Lazo LCSW Date faxed: 06/11/17 Time Faxed: [phone] Faxed Referral(s) 3 Referred To: [facility] Transition of Care Documents sent: Health Summary, W10 Faxed to: Jeff Altamirano, attn: intake Fax #: [phone] Faxed by: Braulio Lazo LCSW Date faxed: 06/11/17 Time Faxed: [phone]
--- NOTE | 2017-06-23 14:33 | DISCHARGE SUMMARY REPORT-PSYCH ---
Visit Information Visit Dates/Diagnosis' Admission Date: 06/05/17 Discharge Date: 06/11/17 Reason for Admission: severe depression and anxiety, wishing Psy Discharge Primary Diag: MDD Generalized Anxiety Psy Discharge Secondary Diag: OCD spectrum Hospital Course Significant Lab Findings: There were no significant lab abnormalities Course Complications: There were no significant complications while the patient was on the inpatient psychiatric unit Consultations: The patient had a history and physical examination while he was on the inpatient psychiatric unit. Please refer to the patient's electronic health record for the details of the H&P Allergies: Coded Allergies: Penicillins (Severe, ANAPHYLAXIS 04/10/15) Hospital Course/TX Response: 06/06/2017: Impression and Plan: 71 year old man with a number of medical problems including chronic pain on methadone, presented to ED with depression, anxiety and SI. He was helpless, hopeless with passive SI without a plan. He has severe sx of MDD, with anhedonia , constricted thinking, depressed mood, poor appetite and poor sleep. He was recently medically admitted with serotonin syndrome, and has had a poor reaction to zoloft being re-introduced recently. He is a poor historian due to his severe sx and frustration. He does not wish to discuss meds and has poor recall of what has been helpful or not in the past. Plan: - will hold trazodone for sleep at this time due to serotonergic fx. Informed him that gabapentin could be helpful. - does not want anything that will "make it worse" and is not able to really discuss different treatment options today, more somatically focused ( constipation and poor sleep per him). Will discuss other options, consideration of abilify b/c of less serotonin fx and impact on MDD with quicker onset of action with him tmr. - continue methadone, he was on 93mg to 91mg taper and here we have 92.5mg dose, will maintain on this dose. - family meeting next week when is present as it appears she may be a better historian than him. DSM 5 Diagnosis(es): mdd severe 06/07/2017 Plan: - agreed to try abilify 2mg, 1st dose now, as adjunct for depressive sx. discussed AE including risk of increasing anxiety initially, weight gain, shakiness. 06/08/2017; D/C Abilify Dulcolax Suppository and may have tablets tonight if still constipated Add PRN Ativan Start Wellbutrin 75 mg daily 06/09/2017: Treatment Plan Update: Add MiraLAX 17 g per day Change PRN Ativan to 1 mg every 6 hours as needed for anxiety and agitation irritability or insomnia Starting tomorrow increase Wellbutrin to Wellbutrin XL 150 mg every morning 06/10/2017: Add Sertraline Change PRN Ativan to 1 mg every 8 hours as needed for anxiety and agitation irritability or insomnia continue Wellbutrin XL 150 mg every morning 06/11/2017: D/C Home Discharge HBIPS - Tobacco Use Treatment Offered Post DC Medications Offered: Not Applicable Post DC Tobacco Treatment Plan: Not Applicable - EtOH/Drug Use D/O Treatment Offered Post DC Medications Offered: NA-No EtOH/Drug Use D/O Post DC EtOH/SubAbuse TX Plan: NA-No EtOH/Drug Use D/O Metabolic Screening - Screen if on a Neuroleptic Medication - Metabolic screening should include: - Blood Pressure, BMI, Glucose or Hgb A1c, & a - Lipid profile from within the past 365 days. Metabolic Screening ([X]) Not Applicable, patient not on a neuroleptic. Discharge Instructions General Discharge Information Multiple Neuroleptics: ([X]) Not Applicable Discharge Diet Diabetic Discharge Activity As Tolerated DC Disposition: Home Referrals Ordered Referrals Provider Referral 06/12/17 For Groups: [facility] [phone] Your visiting nurse, Kate, will contact you tomorrow, 06/12/17, to schedule a time to visit. Provider Referral 06/12/17 For Groups: [[facility]] [facility] [address] [place] [address] Please go [facility] on 06/12/17 between 6am and 11:30am. Provider Referral 06/11/17 For Groups: [[facility]] [facility] [address] [place] [address] Intake appointment: , 06/11/17, at 1:15pm Prescriptions Stop taking the following medications: Insulin NPL/Insulin Lispro (Humalog Mix 75-25 Kwikpen) 100 UNIT/ML (75-25) INSULN.PEN Inject into fatty tissue TWICE DAILY Qty = 45 Amlodipine Besylate (Amlodipine Besylate) 5 MG TABLET ORAL DAILY Qty = 90 Continue taking these medications: Diltiazem HCl (Diltiazem 24HR ER) 240 MG CAP.ER.24H 1 Capsule ORAL DAILY Qty = 90 Comments: Last Taken:06/11/17 Time:1000 Azilsartan Med/Chlorthalidone (Edarbyclor 40-25 MG Tablet) 40 MG-25 MG TABLET 1 Tablet ORAL DAILY Comments: Last Taken:06/11/17 Time:1000 Levothyroxine Sodium (Synthroid) 112 MCG TABLET 2 Tablet ORAL DAILY Qty = 180 Comments: Last Taken:06/11/17 Time:0600 Aspirin (Ecotrin*) 81 MG TABLET.DR 1 Tablet ORAL DAILY Comments: Last Taken:06/11/17 Time:1000 Methadone HCl (Methadone HCl) 5 MG/5 ML SOLUTION 101 Milligram ORAL DAILY Comments: Last Taken:06/11/17 PT RECEIVED 92.5 MG WHILE IN THE [facility] Time:0800 Start taking the following new medications: Bupropion HCl (Wellbutrin XL) 150 MG TAB.ER.24H 150 Milligram ORAL DAILY @8 AM Qty = 30 No Refills Comments: Last Taken:06/11/17 Time:0800 Sertraline HCl (Sertraline HCl) 25 MG TABLET 25 Milligram ORAL DAILY Qty = 30 No Refills Comments: Last Taken:06/11/17 Time:1000 Polyethylene Glycol 3350 (Miralax) 17 GRAM/DOSE POWDER 17 Gram ORAL DAILY Qty = 30 No Refills Comments: Last Taken:06/11/17 Time:1000 Clotrimazole (Clotrimazole) 1 % CREAM..G. 1 Application On the skin TWICE DAILY Qty = 1 No Refills Comments: Last Taken:PT REFUSED Time: Clonazepam (Klonopin) 0.5 MG TABLET 2 Tablet ORAL SEE INSTRUCTIONS Qty = 21 No Refills Instructions: 2 tabs at bedtime x 1 week then 1 tab at bedtime x 1 week then STOP Comments: Last Taken:TO START AT HOME 06/11/17 Time: Insulin Aspart Protam & Aspart (Novolog Mix 70-30 Flexpen Syrn) 100 UNIT/ML (70- 30) INSULN.PEN 40 Units Inject into fatty tissue TWICE DAILY Qty = 1 No Refills Comments: Last Taken:TO START TONIGHT WHEN HOME Time: Other Inst/Recommendations follow-up with your primary care physician Studies Pending at Discharge None Copies To: [place]
== END 2017-06-11 13:30 | DRG 881 ==
LOC: ERH 11:43 → CP SOUTH 16:20 → ERHI 16:20 → ENRESERV 20:00 → CP SOUTH 20:06
PROVIDERS: Physician Assistant
DX: F32.9 Major depressive disorder, single episode, unspecified (principal); F41.9 Anxiety disorder, unspecified; F42.9 Obsessive-compulsive disorder, unspecified
CPT/HCPCS: 80307; 81001; 93005; 93010; G0480; J1815

== ENCOUNTER 2017-07-07 06:50 | Emergency (ER) | payer OTHER, MEDICARE ==
[~2017-07-07] VITALS: Ht 180.3 cm; Wt 112.5 kg
[~2017-07-07 06:50] MED LIST changes: +AMLODIPINE BESYL5 M1 PO; +CLOTRIMAZOLE15 GM TOP; +KLONOPIN0.5 M1 PO; +MIRALAX119 GM PO; +NOVOLOG MI100 UNIT/2 SC; +SERTRALINE HCL25 MG PO; +WELLBUTRIN XL150 M2 PO
--- NOTE | 2017-07-07 07:19 | ED GI/GU/ABDOMINAL COMPLAINT ---
History of Present Illness General Chief Complaint: Male Genitourinary Problems Stated Complaint: "HAVING PROBLEMS WITH URINE AND BOWEL" Source: patient, old records Exam Limitations: no limitations Vital Signs & Intake/Output Vital Signs & Intake/Output Vital Signs Date Time Temp Pulse Resp B/P B/P Pulse O2 O2 Flow FiO2 Mean Ox Delivery Rate 07/07 0858 98.0 72 18 121/64 97 Room Air 07/07 0720 97 Room Air 07/07 0714 97.7 85 18 143/72 97 Room Air Allergies Coded Allergies: Penicillins (Severe, ANAPHYLAXIS 04/10/15) Reconcile Medications Aspirin (Ecotrin*) 81 MG TABLET.DR 1 TAB PO DAILY HEART/BLOOD (Reported) Azilsartan Med/Chlorthalidone (Edarbyclor 40-25 MG Tablet) 40 MG-25 MG TABLET 1 TAB PO DAILY BP (Reported) Bupropion HCl (Wellbutrin XL) 150 MG TAB.ER.24H 150 MG PO 0800 depression Diltiazem HCl (Diltiazem 24HR ER) 240 MG CAP.ER.24H 1 CAP PO DAILY HEART/BP ( Reported) Insulin Aspart Protam & Aspart (Novolog Mix 70-30 Flexpen Syrn) 100 UNIT/ML (70- 30) INSULN.PEN 40 UNITS SC BID DM Levothyroxine Sodium (Synthroid) 112 MCG TABLET 2 TAB PO DAILY THYROID ( Reported) Methadone HCl 5 MG/5 ML SOLUTION 88 MG PO DAILY CHRONIC PAIN (Reported) Polyethylene Glycol 3350 (Miralax) 17 GRAM/DOSE POWDER 17 GM PO DAILY constipation Sertraline HCl 25 MG TABLET 25 MG PO DAILY anxiety/OCD Triage Nurses Notes Reviewed? yes HPI: Patient presents with a history of constipation over the past 5 days and difficulty urinating over the past 3 days. Patient states that he feels he can' t urinate. Patient states he feels he has to go (little comes out. Patient also states that he has met which his bowels in the past 5 days. Patient also states that he has lost 20 pounds over the past 2 months unintentionally. Patient states that he used to be of the 2 cheeseburgers and milk only half a cheeseburger before he gets full. Patient denies any nausea or vomiting. Patient states he just has no appetite. Patient does take methadone for chronic back pain and he took his dose this morning. Past History Travel History Traveled to [place] past 21 day No Medical History Any Pertinent Medical History? see below for history Neurological: NONE EENT: cataracts Cardiovascular: hypertension, hyperlipidemia Respiratory: NONE Gastrointestinal: NONE Hepatic: NONE Renal: NONE Musculoskeletal: chronic back pain, osteoarthritis, LUMBAR FXS STIMULATOR IN BACK Psychiatric: opioid dependence, substance abuse, on methadone Endocrine: diabetes, hypothyroidism Blood Disorders: NONE Cancer(s): NONE ANTHROPOLOGY DEPARTMENT CHAIR/Reproductive: NONE History of MRSA: No History of VRE: No History of CDIFF: No Surgical History Surgical History: appendectomy, cholecystectomy, thyroidectomy(2007) Psychosocial History Who do you live with Spouse Services at Home None What is your primary language Yi Tobacco Use: Never used ETOH Use: denies use Illicit Drug Use: denies illicit drug use, ON METHADONE 80MG/DAY FOR CHRONIC BACK PAIN Family History Family History, If Any: Relation not specified for: *No pertinent family history Hx Contributory? No Review of Systems Review of Systems Constitutional: Reports: see HPI, weakness, unexplained weight loss. EENTM: Reports: no symptoms. Respiratory: Reports: no symptoms. Cardiovascular: Reports: no symptoms. GI: Reports: see HPI, constipation. Genitourinary: Reports: see HPI. Musculoskeletal: Reports: see HPI, back pain (CHRONIC). Skin: Reports: no symptoms. Neurological/Psychological: Reports: no symptoms. Hematologic/Endocrine: Reports: no symptoms. Immunologic/Allergic: Reports: no symptoms. All Other Systems: Reviewed and Negative Physical Exam Physical Exam General Appearance: well developed/nourished, alert, awake, anxious, mild distress Head: atraumatic, normal appearance Eyes: Bilateral: PERRL, EOMI. Ears, Nose, Throat, Mouth: hearing grossly normal, DRY MM Neck: normal inspection, supple, full range of motion Respiratory: normal breath sounds, chest non-tender, no respiratory distress, lungs clear Cardiovascular: regular rate/rhythm, normal peripheral pulses Gastrointestinal: normal bowel sounds, soft, non-tender, no organomegaly, NORMAL BOWEL SOUNDS,NOT HYPERACTIVE Back: normal inspection, normal range of motion Extremities: normal range of motion Neurologic/Psych: no motor/sensory deficits, awake, alert, oriented x 3, normal gait, normal mood/affect Skin: intact, normal color, warm/dry Core Measures ACS in differential dx? Yes Sepsis Present: No Sepsis Focused Exam Completed? No Progress Differential Diagnosis: AMI, biliary colic, bowel obstruction, colon cancer, pancreatitis, urinary retention, UTI/pyelo Plan of Care: Orders Procedure Date/time Status CULTURE,URINE 07/07 717 Active URINALYSIS 07/07 717 Complete TROPONIN LEVEL 07/07 717 Complete LIPASE 07/07 717 Complete COMPREHENSIVE METABOLIC PANEL 07/07 717 Complete CBC WITHOUT DIFFERENTIAL 07/07 717 Complete AMYLASE 07/07 717 Complete EKG 07/07 717 Active Laboratory Tests 07/07/17 0740: Anion Gap 12, Estimated GFR 46 L, BUN/Creatinine Ratio 20.0, Glucose 324 H, Calcium 8.8, Total Bilirubin 0.5, AST 89 H, ALT 212 H, Alkaline Phosphatase 156 H, Troponin I 0.02, Total Protein 6.8, Albumin 3.8, Globulin 3.0, Albumin/ Globulin Ratio 1.3, Amylase 44, Lipase 53, CBC w Diff NO MAN DIFF REQ, RBC 4.43 L, MCV 90.4, MCH 30.6, MCHC 33.9, RDW 12.9, MPV 7.9, Gran % 68.7, Lymphocytes % 22.1, Monocytes % 7.8, Eosinophils % 1.1, Basophils % 0.3, Absolute Granulocytes 5.3, Absolute Lymphocytes 1.7, Absolute Monocytes 0.6, Absolute Eosinophils 0.1, Absolute Basophils 0 07/07/17731: Urine Color YEL, Urine Clarity CLEAR, Urine pH 6.0, Ur Specific [place] 1.020, Urine Protein NEG, Urine Ketones NEG, Urine Nitrite NEG, Urine Bilirubin NEG, Urine Urobilinogen 2.0 H, Ur Leukocyte Esterase NEG, Ur Microscopic EXAM NOT REQUIRED, Urine Hemoglobin NEG, Urine Glucose 500 H Microbiology 07/08 731 URINE ROUT: Urine Culture - RECD Diagnostic Imaging: Viewed by Me: CT Scan. Discussed w/RAD: CT Scan. Radiology Impression: PATIENT: MIGUEL ANGEL CARRERA PRESENT AGE: 71 PATIENT ACCOUNT NO: [id number] : 46 LOCATION: [facility] ORDERING PHYSICIAN: Rosas Levi MD SERVICE DATE: 07/07/17 EXAM TYPE: CAT - CT ABD & PELVIS W/O IV CONTRAS EXAMINATION: CT ABDOMEN AND PELVIS WITHOUT CONTRAST CLINICAL INFORMATION: Constipation, early satiety. Question obstruction. COMPARISON: Plain films of lumbar spine from 12/04/2015. CT of the lumbar spine from 12/04/2015. Chest CT of 08/23/2014. TECHNIQUE: Multidetector volumetric imaging was performed from the superior aspect of the liver through the pubic symphysis. Sagittal and coronal reformatted images were obtained on the technologist's workstation. DLP: 1187 mGy-cm FINDINGS: Laminating Machine Operator Helper: The servomechanism designer image demonstrates no evidence of obstruction. There is elevation of the right hemidiaphragm which is stable. There are clips in the right upper quadrant, stable. There is a new spinal stimulator device visualized, with generator on the left, and electrode array projecting over the T8-T10 vertebral bodies. LUNG BASES: There is a calcified granuloma in the right base. There is a calcified granuloma in the left base. There is an additional 2 mm pulmonary nodule in the left lower lobe (series 3 image 173) most likely a noncalcified granuloma, stable from a chest CT of 08/23/2014. Coronary calcifications are visualized. No pericardial effusion. LIVER, GALLBLADDER, AND BILIARY TREE: The liver is normal in size, shape, and attenuation. No focal hepatic lesion or biliary ductal dilatation is present. There has been prior cholecystectomy. No ductal dilatation. The colon continues to project ventral to a portion of the liver. There is a stable well marginated nodule between the colon and the liver measuring 1.2 cm, unchanged from the prior chest CT which cover this area. PANCREAS: Unremarkable. SPLEEN: Unremarkable. ADRENAL GLANDS: There is a stable 1.4 cm low-attenuation area of nodularity in the right adrenal gland, most suggestive of an adenoma. The left adrenal gland appears unremarkable. KIDNEYS AND URETERS: The kidneys are normal in size, shape, and attenuation. No hydronephrosis, hydroureter, or calculi seen. No perinephric stranding. There is a stable focus of hypoattenuation in the medial aspect of the upper pole of the left kidney measuring 1.2 cm, too small to characterize, but statistically a cyst. A small focus of hypoattenuation in the medial right kidney is also stable , measures approximately 1.5 cm and is statistically a cyst. In the lower pole of the left kidney there is a fluid attenuating structure, which was partially visualized on the prior chest CT, measuring 3.3 cm, compatible with an additional cyst. BLADDER: Under distended, unremarkable. GASTROINTESTINAL TRACT: The stomach appears unremarkable. Loops of small bowel are normal in caliber. Loops of large bowel are normal in caliber. There is moderate stool seen throughout the colon, most notable in the sigmoid colon and rectum without definitive dilatation. There are scattered colonic diverticula including within the cecum and ascending colon, as well as within the distal descending colon most notably. An appendix is not definitively visualized. No significant stranding in the right lower quadrant. ABDOMINAL WALL: There is scarring in the right abdominal wall with some minor mineralization. There is a generator in the left anterior abdominal wall, with leads extending in the subcutaneous tissue to the T12-L1 level, at which point they enter the spinal canal where they run in the dorsal aspect of the canal. The electrode arrays visualized from T8 through T10. LYMPH NODES: No adenopathy is evident. VASCULAR: The aorta is calcified without aneurysmal dilatation. PELVIC VISCERA: Unremarkable. OSSEOUS STRUCTURES: There are 5 nonrib-bearing lumbar type vertebral bodies. There is bilateral L5 spondylolysis with 9 mm of anterolisthesis of L5 on S1, similar to the prior study. There is advanced multilevel lower thoracic and lumbar degenerative change. There is a corduroy type appearance at the T6 level suggesting a hemangioma. Degenerative changes appear similar to the prior CT of the lumbar spine where visualized. No acute osseous abnormalities are evident. IMPRESSION: 1. No evidence of obstruction, or other acute intra-abdominal or intrapelvic pathology. Few scattered colonic diverticula without diverticulitis. Moderate stool in the colon. 2. Prior cholecystectomy. Interval placement of a spinal stimulator device as above. 3. Bilateral L5 spondylolysis with 9 mm of anterolisthesis of L5 on S1, stable. Advanced multilevel spondylosis without interval compression deformity visualized. 4. Stable right adrenal adenoma. Bilateral renal cysts. DICTATED BY: Erna Baca MD DATE/TIME DICTATED:07/07/171004 LAWN SPRINKLER INSTALLER:STEPHANY DATE/TIME TRANSCRIBED:07/07/171004 CONFIDENTIAL, DO NOT COPY WITHOUT APPROPRIATE AUTHORIZATION. <Electronically signed in Other Vendor System> SIGNED BY: Erna Baca MD 07/07/17 1026 Initial ED EKG: NSR, nonspecific ST T wave chg Prior EKG: unchanged Comments: Labs and CAT scan results were discussed with the patient. Questions have been answered. Patient will be started on laxatives. Patient will follow up with gastroenterology given the weight loss and early SAITEY. Departure Departure Disposition: HOME OR SELF CARE Condition: Stable Clinical Impression Primary Impression: Weight loss Secondary Impressions: Constipation Referrals: Emerita LOZANO,Rosas Skelton (PCP/Family) Satya Matthews MD Additional Instructions: Drink plenty of fluids. Follow-up with Dr. Matthews from gastroenterology for further evaluation. Follow-up with Dr. Garvey. Take lactulose as prescribed. Return if symptoms worsen or for any concerns. Departure Forms: Customer Survey General Discharge Information Prescriptions: Current Visit Scripts Lactulose 30 ML PO BID PRN CONSTIPATION #1800 ML
[2017-07-07 07:47] LABS: ABSOLUTE BASOPHIL COUNT 0 /CUMM (0.0-0.2); ABSOLUTE EOSINOPHIL COUNT 0.1 /CUMM (0.0-0.7); ABSOLUTE GRANULOCYTE CT 5.3 /CUMM (1.4-6.5); ABSOLUTE LYMPH COUNT 1.7 /CUMM (1.2-3.4); ABSOLUTE MONOCYTE COUNT 0.6 /CUMM (0.10-0.60); BASOPHIL % 0.3 % (0.0-2.0); EOSINOPHIL % 1.1 % (0-5); GRANULOCYTE % 68.7 % (42.2-75.2); HEMATOCRIT 40.1 % (42-52); MEAN CORPUSCULAR HGB 30.6 PG (27.0-31.0); MEAN CORPUSCULAR HGB CONC 33.9 G/DL (33.0-37.0); MEAN CORPUSCULAR VOLUME 90.4 FL (80.0-94.0); MEAN PLATELET VOLUME 7.9 FL (7.4-10.4); PLATELET COUNT 266 /CUMM (130-400); RBC DISTRIBUTION WIDTH 12.9 % (11.5-14.5); RED BLOOD CELL CT 4.43 /CUMM (4.70-6.10); WHITE BLOOD CELL COUNT 7.8 /CUMM (4.8-10.8)
--- NOTE | 2017-07-07 10:26 | CT SCAN REPORT ---
EXAMINATION: CT ABDOMEN AND PELVIS WITHOUT CONTRAST CLINICAL INFORMATION: Constipation, early satiety. Question obstruction. COMPARISON: Plain films of lumbar spine from 12/04/2015. CT of the lumbar spine from 12/04/2015. Chest CT of 08/23/2014. TECHNIQUE: Multidetector volumetric imaging was performed from the superior aspect of the liver through the pubic symphysis. Sagittal and coronal reformatted images were obtained on the technologist's workstation. DLP: 1187 mGy-cm FINDINGS: Paperhanger Pipe: The microphone operator image demonstrates no evidence of obstruction. There is elevation of the right hemidiaphragm which is stable. There are clips in the right upper quadrant, stable. There is a new spinal stimulator device visualized, with generator on the left, and electrode array projecting over the T8-T10 vertebral bodies. LUNG BASES: There is a calcified granuloma in the right base. There is a calcified granuloma in the left base. There is an additional 2 mm pulmonary nodule in the left lower lobe (series 3 image 173) most likely a noncalcified granuloma, stable from a chest CT of 08/23/2014. Coronary calcifications are visualized. No pericardial effusion. LIVER, GALLBLADDER, AND BILIARY TREE: The liver is normal in size, shape, and attenuation. No focal hepatic lesion or biliary ductal dilatation is present. There has been prior cholecystectomy. No ductal dilatation. The colon continues to project ventral to a portion of the liver. There is a stable well marginated nodule between the colon and the liver measuring 1.2 cm, unchanged from the prior chest CT which cover this area. PANCREAS: Unremarkable. SPLEEN: Unremarkable. ADRENAL GLANDS: There is a stable 1.4 cm low-attenuation area of nodularity in the right adrenal gland, most suggestive of an adenoma. The left adrenal gland appears unremarkable. KIDNEYS AND URETERS: The kidneys are normal in size, shape, and attenuation. No hydronephrosis, hydroureter, or calculi seen. No perinephric stranding. There is a stable focus of hypoattenuation in the medial aspect of the upper pole of the left kidney measuring 1.2 cm, too small to characterize, but statistically a cyst. A small focus of hypoattenuation in the medial right kidney is also stable, measures approximately 1.5 cm and is statistically a cyst. In the lower pole of the left kidney there is a fluid attenuating structure, which was partially visualized on the prior chest CT, measuring 3.3 cm, compatible with an additional cyst. BLADDER: Under distended, unremarkable. GASTROINTESTINAL TRACT: The stomach appears unremarkable. Loops of small bowel are normal in caliber. Loops of large bowel are normal in caliber. There is moderate stool seen throughout the colon, most notable in the sigmoid colon and rectum without definitive dilatation. There are scattered colonic diverticula including within the cecum and ascending colon, as well as within the distal descending colon most notably. An appendix is not definitively visualized. No significant stranding in the right lower quadrant. ABDOMINAL WALL: There is scarring in the right abdominal wall with some minor mineralization. There is a generator in the left anterior abdominal wall, with leads extending in the subcutaneous tissue to the T12-L1 level, at which point they enter the spinal canal where they run in the dorsal aspect of the canal. The electrode arrays visualized from T8 through T10. LYMPH NODES: No adenopathy is evident. VASCULAR: The aorta is calcified without aneurysmal dilatation. PELVIC VISCERA: Unremarkable. OSSEOUS STRUCTURES: There are 5 nonrib-bearing lumbar type vertebral bodies. There is bilateral L5 spondylolysis with 9 mm of anterolisthesis of L5 on S1, similar to the prior study. There is advanced multilevel lower thoracic and lumbar degenerative change. There is a corduroy type appearance at the T6 level suggesting a hemangioma. Degenerative changes appear similar to the prior CT of the lumbar spine where visualized. No acute osseous abnormalities are evident. IMPRESSION: 1. No evidence of obstruction, or other acute intra-abdominal or intrapelvic pathology. Few scattered colonic diverticula without diverticulitis. Moderate stool in the colon. 2. Prior cholecystectomy. Interval placement of a spinal stimulator device as above. 3. Bilateral L5 spondylolysis with 9 mm of anterolisthesis of L5 on S1, stable. Advanced multilevel spondylosis without interval compression deformity visualized. 4. Stable right adrenal adenoma. Bilateral renal cysts.
[2017-07-07] MEDS ORDERED: LACTULOSE10 GM/153 PO (10:41)
[2017-07-07 10:49] VITALS: BP 120/70
== END 2017-07-07 10:49 ==
LOC: ERH 06:50
PROVIDERS: Emergency Medicine
DX: R63.4 Abnormal weight loss (principal); K59.00 Constipation, unspecified; R33.9 Retention of urine, unspecified; I10 Essential (primary) hypertension; E11.9 Type 2 diabetes mellitus without complications; E03.9 Hypothyroidism, unspecified; Z79.4 Long term (current) use of insulin
CPT/HCPCS: 74176; 81003; 87086; 93005; 93010

== ENCOUNTER 2017-07-13 11:13 | Emergency (ER) | payer OTHER, MEDICARE ==
[~2017-07-13] VITALS: Ht 177.8 cm; Wt 112.5 kg
[~2017-07-13 11:13] MED LIST changes: +LACTULOSE10 GM/153 PO
[2017-07-13 12:44] VITALS: BP 104/61
--- NOTE | 2017-07-13 13:09 | ED GENERAL ADULT ---
History of Present Illness General Chief Complaint: General Adult Stated Complaint: PT HAS MULTIPLE COMPLAINTS Source: patient Exam Limitations: no limitations Vital Signs & Intake/Output Vital Signs & Intake/Output Vital Signs Date Time Temp Pulse Resp B/P B/P Pulse O2 O2 Flow FiO2 Mean Ox Delivery Rate 07/13 1352 Room Air 07/13 1244 97.4 81 20 104/61 96 07/13 1119 97.3 74 20 136/80 97 Room Air Allergies Coded Allergies: Penicillins (Severe, ANAPHYLAXIS 04/10/15) Reconcile Medications Aspirin (Ecotrin*) 81 MG TABLET.DR 1 TAB PO DAILY HEART/BLOOD (Reported) Azilsartan Med/Chlorthalidone (Edarbyclor 40-25 MG Tablet) 40 MG-25 MG TABLET 1 TAB PO DAILY BP (Reported) Bupropion HCl (Wellbutrin XL) 150 MG TAB.ER.24H 150 MG PO 0800 depression Diltiazem HCl (Diltiazem 24HR ER) 240 MG CAP.ER.24H 1 CAP PO DAILY HEART/BP ( Reported) Insulin Aspart Protam & Aspart (Novolog Mix 70-30 Flexpen Syrn) 100 UNIT/ML (70- 30) INSULN.PEN 40 UNITS SC BID DM Lactulose 10 GRAM/15 ML SOLUTION 30 ML PO BID PRN CONSTIPATION Levothyroxine Sodium (Synthroid) 112 MCG TABLET 2 TAB PO DAILY THYROID ( Reported) Methadone HCl 5 MG/5 ML SOLUTION 88 MG PO DAILY CHRONIC PAIN (Reported) Polyethylene Glycol 3350 (Miralax) 17 GRAM/DOSE POWDER 17 GM PO DAILY constipation Sertraline HCl 25 MG TABLET 25 MG PO DAILY anxiety/OCD Triage Note: PT TO ED WITH MULTIPLE COMPLAINTS. "I CAN'T FOCUS, I'M PEEING EVERY 3 MINUTES, MY BOWELS, I CAN'T WALK". Triage Nurses Notes Reviewed? yes HPI: Patient is a 72-year-old male with past history of hypertension and diabetes who presents today with multiple nonspecific symptoms stating that he feels "ill." He was here last week with similar symptomatology and states that it has been unresolved since then. He does note that "my is in [place] and when she is away I don't know what to do, she would set me straight. With her gone, I have to come here for you to take care of me." Upon my initial encounter he is generally well-appearing and in no acute distress, albeit anxious regarding his symptoms. He denies fever, chest pain, dyspnea, abdominal pain, or other symptoms, but he does report continuation of the constipation he has had previously. Past History Travel History Traveled to [place] past 21 day No Medical History Any Pertinent Medical History? 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 No Review of Systems Review of Systems Constitutional: Reports: no symptoms, malaise. EENTM: Reports: no symptoms. Respiratory: Reports: no symptoms. Cardiovascular: Reports: no symptoms. GI: Reports: no symptoms. Genitourinary: Reports: no symptoms. Musculoskeletal: Reports: no symptoms. Skin: Reports: no symptoms. Neurological/Psychological: Reports: no symptoms. Hematologic/Endocrine: Reports: no symptoms. Immunologic/Allergic: Reports: no symptoms. All Other Systems: Reviewed and Negative Physical Exam Physical Exam General Appearance: well developed/nourished, no apparent distress, alert Comments: HEENT: Inspection of the head reveals a normocephalic cranium with no signs of trauma. Ophtho: Extraocular muscles are intact and pupils are equal and reactive to light bilaterally with no afferent pupillary defect. The sclera are noninjected , and there is no obvious discharge. Neck: The trachea is midline, there is no obvious asymmetry or mass over the thyroid, and there is no midline cervical spine tenderness Respiratory: The lungs are clear and equal to auscultation bilaterally without wheezes, rales, or rhonchi. The patient exhibits no signs of labored breathing. Cardiac: Regular rhythm and non-tachycardic without appreciable murmurs on auscultation. No obvious JVD. GI: Examination of the abdomen reveals no significant focal tenderness in any of the four quadrants. There is negative De Luna's sign, negative McBurney's point tenderness, negative [place] sign, negative Greer-Clements sign, and no signs of peritonitis whatsoever on percussion or deep palpation. The skin is intact with no sign of trauma or infection. : Deferred Neuro: The patient is oriented to person, place, time, and situation, with no obvious focal motor deficits. There were no sensory deficits, and the patient exhibit purposeful movement of all 4 extremities. Cranial nerves II through XII are intact, and gait is normal. Behavioral: Anxious. Dermatologic: Dermatologic examination reveals no diffuse rashes or exanthems, no petechiae, no ecchymoses, and no other signs of erythema or infection. Core Measures ACS in differential dx? No CVA/TIA Diagnosis: No Sepsis Present: No Sepsis Focused Exam Completed? No Progress Differential Diagnoses I considered the following diagnoses in my evaluation of the patient: electrolyte abnormality, pneumonia, UTI, metabolic disturbance, diabetes, pneumonia, anxiety, multiple other possibilities Plan of Care: Orders Procedure Date/time Status URINALYSIS 07/13 1308 Complete LYME TITRE 07/13 1308 Active COMPREHENSIVE METABOLIC PANEL 07/13 1308 Complete CBC WITHOUT DIFFERENTIAL 07/13 1308 Complete Laboratory Tests 07/13/17 1331: Lyme Disease Antibody Pending 07/13/17 1331: Anion Gap 13, Estimated GFR 40 L, BUN/Creatinine Ratio 17.6, Glucose 217 H, Calcium 9.1, Total Bilirubin 0.6, AST 35, ALT 79 H, Alkaline Phosphatase 127 H , Total Protein 7.5, Albumin 4.0, Globulin 3.5, Albumin/Globulin Ratio 1.1, CBC w Diff NO MAN DIFF REQ, RBC 4.60 L, MCV 91.9, MCH 31.0, MCHC 33.7, RDW 13.3, MPV 7.8, Gran % 66.6, Lymphocytes % 24.2, Monocytes % 7.7, Eosinophils % 1.0, Basophils % 0.5, Absolute Granulocytes 7.0 H, Absolute Lymphocytes 2.5, Absolute Monocytes 0.8 H, Absolute Eosinophils 0.1, Absolute Basophils 0.1, Babesia microti DNA PCR Pending, Ehrlichia DNA (PCR) Pending 07/13/17 1326: Urine Color YEL, Urine Clarity HAZY H, Urine pH 6.0, Ur Specific [place] >= 1.030, Urine Protein 30 H, Urine Ketones TRACE H, Urine Nitrite NEG, Urine Bilirubin NEG, Urine Urobilinogen 1.0, Ur Leukocyte Esterase NEG, Ur Microscopic SEDIMENT EXAMINED, Urine WBC 1-3 H, Urine Bacteria FEW H, Hyaline Casts 15-25 H, Urine Mucus FEW, Urine Hemoglobin NEG, Urine Glucose NEG Initial ED EKG: none Comments: Patient presented today for nonspecific fatigue and tremulousness which has been self-limited and has resolved. His laboratory studies which I repeated today were unchanged. His creatinine of 1.7 is similar to prior values. Medical screening examination otherwise negative. The patient states that he has had urinary frequency and suprapubic pressure. He does not have any known prostate issues. I recommended that he be evaluated by his urologist who he saw last year. I also recommended that he be seen by his PCP. I do not feel that he has an emergent medical condition at this time. I feel he is stable for discharge. I explained this to the patient and while he was very pleasant to my face, he subsequently came to the nurse and told her that "tell the doctor he can shove the papers up his ass." He left prior to receiving his instructions, ambulating from the ED under his own power without difficulty. Departure Departure Time of Disposition: 1430 Disposition: HOME OR SELF CARE Condition: Stable Clinical Impression Primary Impression: Fatigue Qualifiers: Fatigue type: unspecified Qualified Code: R53.83 - Other fatigue Referrals: Emerita LOZANO,Rosas Skelton (PCP/Family) Additional Instructions: Please follow-up with her primary physician and with your urologist to further investigate her symptoms. Departure Forms: Customer Survey General Discharge Information Critical Care Note Critical Care Note Critical Care Time: non-applicable
[2017-07-13 13:42] LABS: ABSOLUTE BASOPHIL COUNT 0.1 /CUMM (0.0-0.2); ABSOLUTE EOSINOPHIL COUNT 0.1 /CUMM (0.0-0.7); ABSOLUTE LYMPH COUNT 2.5 /CUMM (1.2-3.4); ABSOLUTE MONOCYTE COUNT 0.8 /CUMM (0.10-0.60); BASOPHIL % 0.5 % (0.0-2.0); GRANULOCYTE % 66.6 % (42.2-75.2); HEMATOCRIT 42.3 % (42-52); MEAN CORPUSCULAR HGB CONC 33.7 G/DL (33.0-37.0); MEAN CORPUSCULAR VOLUME 91.9 FL (80.0-94.0); MEAN PLATELET VOLUME 7.8 FL (7.4-10.4); PLATELET COUNT 299 /CUMM (130-400); RBC DISTRIBUTION WIDTH 13.3 % (11.5-14.5); WHITE BLOOD CELL COUNT 10.6 /CUMM (4.8-10.8)
== END 2017-07-13 14:42 ==
LOC: ERH 11:13
PROVIDERS: Student in an Organized Health Care Education/Training Program
DX: R53.83 Other fatigue (principal); R35.0 Frequency of micturition; I10 Essential (primary) hypertension; E11.9 Type 2 diabetes mellitus without complications; Z79.4 Long term (current) use of insulin; K59.00 Constipation, unspecified; E03.9 Hypothyroidism, unspecified
CPT/HCPCS: 86618; 81001; 87798

== ENCOUNTER 2017-08-05 12:43 | Inpatient (IN) | payer OTHER, MEDICARE ==
[~2017-08-05] VITALS: Ht 180.3 cm; Wt 107.5 kg
--- NOTE | 2017-08-05 13:05 | ED PSYCHIATRIC COMPLAINT ---
History of Present Illness General Chief Complaint: Psychiatric Related Complaint Stated Complaint: +SI Source: patient Exam Limitations: no limitations Vital Signs & Intake/Output Vital Signs & Intake/Output Vital Signs Date Time Temp Pulse Resp B/P B/P Pulse O2 O2 Flow FiO2 Mean Ox Delivery Rate 08/07 0807 131/52 08/07 0802 97.6 81 131/52 08/06 1922 96.8 71 116/65 08/06 1541 76 96/63 08/06 1213 79 102/70 Allergies Coded Allergies: Penicillins (Severe, ANAPHYLAXIS 04/10/15) Triage Note: PT TO ED WITH C/O SUICIDAL THOUGHTS, NO PLAN "I DON'T HAVE THE CAPABILITY FOR THAT". "I HAVE BEEN TRYING TO WEAN MYSELF OFF WELLBUTRIN, ZOLOFT BUT IT'S NOT WORKING". "I JUST STARTED ON 2 NEW MEDS, ONE FOR MY URINE, AND ONE FOR MY BOWELS". Triage Nurses Notes Reviewed? yes Onset: Abrupt Duration: day(s):, changing over time, continues in ED, getting worse Timing: recent history Severity: mild, moderate Associated Symptoms: anxiety, suicidal ideation HPI: 72-year-old male history of depression, anxiety, substance abuse, chronic back pain, diabetes presents for evaluation of depression and suicidal ideation. Patient reports that he has had worsening depression recently. He has had intermittent thoughts of suicide currently does not have a plan. He feels like he would not do that to his family. He reports that he's recently had his medications changed and feels like he is having side effects. He reports that he has had intermittent flushing and hot flashes for the past several days. He denies any chest pain shortness of breath or fever. No homicidal ideation no hallucinations. He was sent in by his psychiatrist who reported he made a suicidal statement. (Willy SCHWARTZ,Aneesh) Reconcile Medications Aspirin (Ecotrin*) 81 MG TABLET.DR 1 TAB PO DAILY HEART/BLOOD (Reported) Azilsartan Med/Chlorthalidone (Edarbyclor 40-25 MG Tablet) 40 MG-25 MG TABLET 1 TAB PO DAILY HEART (Reported) Bupropion HCl (Wellbutrin XL) 150 MG TAB.ER.24H 150 MG PO 0800 depression Diltiazem HCl (Diltiazem 24HR ER) 240 MG CAP.ER.24H 1 CAP PO DAILY HEART/BP ( Reported) Insulin Aspart Protam & Aspart (Novolog Mix 70-30 Flexpen Syrn) 100 UNIT/ML (70- 30) INSULN.PEN 40 UNITS SC BID DM Levothyroxine Sodium (Synthroid) 112 MCG TABLET 2 TAB PO DAILY THYROID ( Reported) Methadone HCl 5 MG/5 ML SOLUTION 88 MG PO DAILY CHRONIC PAIN (Reported) Naldemedine Tosylate (Symproic) 0.2 MG TABLET 1 TAB PO DAILY UNKNOWN ( Reported) Pantoprazole Sodium 40 MG TABLET.DR 1 TAB PO DAILY GI (Reported) Polyethylene Glycol 3350 (Miralax) 17 GRAM/DOSE POWDER 17 GM PO DAILY constipation Sertraline HCl 25 MG TABLET 25 MG PO DAILY anxiety/OCD (Kenton Tate DO) Past History Travel History Traveled to [place] past 21 day No Medical History Any Pertinent Medical History? 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 No (Aneesh Dowell) Review of Systems Review of Systems Constitutional: Reports: no symptoms. EENTM: Reports: no symptoms. Respiratory: Reports: no symptoms. Cardiovascular: Reports: no symptoms. GI: Reports: no symptoms. Genitourinary: Reports: no symptoms. Musculoskeletal: Reports: no symptoms. Skin: Reports: no symptoms. Neurological/Psychological: Reports: see HPI, anxiety, depressed. Hematologic/Endocrine: Reports: no symptoms. Immunologic/Allergic: Reports: no symptoms. All Other Systems: Reviewed and Negative (Aneesh Dowell) Physical Exam Physical Exam General Appearance: well developed/nourished, no apparent distress, alert, awake , anxious Head: atraumatic, normal appearance Eyes: Bilateral: normal appearance, PERRL, EOMI. Ears, Nose, Throat: normal pharynx, normal ENT inspection, hearing grossly normal Neck: normal inspection, supple, full range of motion Respiratory: normal breath sounds, chest non-tender, no respiratory distress, lungs clear Cardiovascular: regular rate/rhythm, normal peripheral pulses Gastrointestinal: normal bowel sounds, soft, non-tender, no organomegaly Extremities: normal range of motion Neurological/Psychiatric: no motor/sensory deficits, awake, alert, anxious Appearance/Memory/Insight: appropriate appearance, impaired insight Behavoir/Eye Contact/Speech: cooperative, normal speech Thoughts/Hallucinations: normal thought pattern, no apparent hallucination Skin: intact, normal color, warm/dry SAD PERSONS SAD PERSONS Response Value Male Sex? yes 1 Age <19 or >45 years? yes 1 Depression/Hopelessness? yes 2 Previous Attempts/Psych Care yes 1 Social Support? has support 0 Total 5 SAD PERSONS Done? yes (Willy SCHWARTZ,Aneesh) Progress Differential Diagnosis: dementia, drug intoxication, drug overdose, drug withdrawal, electrolyte abnormality, serotonin syndrome Plan of Care: Orders Procedure Date/time Status INIT HSP (30 MIN) 08/06 UNK Complete Current Medications Sig/Radha Start time Last Medication Dose Stop Time Status Admin Senna 187 MG QPM 08/07 2100 AC (Senokot) Docusate Sodium 100 MG BID 08/07 09 AC (Colace) Chlorthalidone 25 MG DAILY 08/06 0900 AC 08/07 (Hygroton) 0807 Diltiazem HCl 240 MG DAILY 08/06 0900 AC 08/07 (Cardizem CD) 0807 Insulin Detemir 20 UNITS BID 08/06 0900 AC 08/07 (Levemir) 0813 Losartan Potassium 50 MG DAILY 08/06 0900 AC 08/07 (Cozaar) 0807 Polyethylene Glycol 17 GM DAILY 08/06 0900 AC 08/07 (Miralax) 0847 Sertraline HCl 50 MG DAILY 08/06 0900 AC 08/07 (Zoloft) 0807 Methadone HCl 85 MG 0808/06 0800 AC 08/07 (Dolophine) 0811 Levothyroxine Sodium 0.224 MG DAILY AC 08/06 0700 AC 08/07 (Synthroid) 0704 Omeprazole 40 MG DAILY AC 08/06 07 AC 08/07 (Prilosec) 0704 Clonazepam 1 MG 08/05 AC 08/06 (Klonopin 1MG Tab) 08/12 Melatonin 5 MG 08/05 AC 08/06 (Melatonin) 2128 Insulin Aspart 0 TIDAC 08/05 1700 AC 08/07 (NovoLOG) 0848 Non-Formulary 0 SEE ADMIN CRITERIA 08/05 1645 UNVr Medication (NON FORMULARY) Lactulose 20 GM Q12P PRN 08/05 1630 AC (Enulose 20GM/30ML) Aspirin Buffered 81 MG DAILY 08/05 1618 AC 08/07 (Ecotrin) 0807 Patient is here with depression and anxiety and intermittent suicidal ideation. He also reports she has had hot flashes and flushing since starting new medications. He denies any chest pain or shortness of breath. Vital signs are stable no abnormal exam findings. Labs ordered patient will be seen by crisis. Blood work shows a mildly elevated blood sugar of 259 with a negative anion gap. Remaining labs unremarkable. he is being admitted to inpatient psychiatry. Case discussed with Dr. Tate he agrees. (Aneesh Dowell) Departure Departure Disposition: STILL A PATIENT Condition: Stable Clinical Impression Primary Impression: Major depression Qualifiers: Major depression recurrence: recurrent Active/Remission status: currently active Major depression episode severity: severe Psychotic features: without psychotic features Qualified Code: F33.2 - Major depressive disorder, recurrent severe without psychotic features Referrals: Rosas Felder MD (PCP/Family) Departure Forms: Customer Survey General Discharge Information Psych Admission Note Psychiatric Admission: I have seen and evaluated MIGUEL ANGEL CARRERA. I have also reviewed all the pertinent lab results and diagnostic results. MIGUEL ANGEL CARRERA will be admitted to our inpatient Psychiatric unit for treatment and care. (Aneesh Dowell) PA/MARKETING DATABASE CONSULTANT Co-Sign Statement Statement: ED Attending supervision documentation- [] I saw and evaluated the patient. I have also reviewed all the pertinent lab results and diagnostic results. I agree with the findings and the plan of care as documented in the PA's/MARKETING DATABASE CONSULTANT's documentation. [x] I have reviewed the ED Record and agree with the PA's/MARKETING DATABASE CONSULTANT's documentation. [] Additions or exceptions (if any) to the PAs/MARKETING DATABASE CONSULTANT's note and plan are summarized below: [] (Kenton Tate DO) Departure Forms: Customer Survey General Discharge Information Psych Admission Note Psychiatric Admission: I have seen and evaluated MIGUEL ANGEL CARRERA. I have also reviewed all the pertinent lab results and diagnostic results. CARRERAMIGUEL ANGEL Dahl will be admitted to our inpatient Psychiatric unit for treatment and care.
[2017-08-05 14:08] LABS: ABSOLUTE BASOPHIL COUNT 0 /CUMM (0.0-0.2); ABSOLUTE EOSINOPHIL COUNT 0 /CUMM (0.0-0.7); ABSOLUTE GRANULOCYTE CT 7.4 /CUMM (1.4-6.5); ABSOLUTE LYMPH COUNT 1.5 /CUMM (1.2-3.4); ABSOLUTE MONOCYTE COUNT 0.7 /CUMM (0.10-0.60); BASOPHIL % 0.3 % (0.0-2.0); EOSINOPHIL % 0.5 % (0-5); GRANULOCYTE % 76.9 % (42.2-75.2); HEMATOCRIT 39.8 % (42-52); MEAN CORPUSCULAR HGB 30.9 PG (27.0-31.0); MEAN CORPUSCULAR HGB CONC 34.3 G/DL (33.0-37.0); MEAN CORPUSCULAR VOLUME 90.3 FL (80.0-94.0); MEAN PLATELET VOLUME 7.9 FL (7.4-10.4); PLATELET COUNT 262 /CUMM (130-400); RED BLOOD CELL CT 4.41 /CUMM (4.70-6.10); WHITE BLOOD CELL COUNT 9.6 /CUMM (4.8-10.8)
[2017-08-05] MEDS ORDERED: PANTOPRAZOLE SO40 M1 PO (14:34)
[2017-08-05] MEDS ORDERED: SYMPROIC0.2 MG PO (14:34)
--- NOTE | 2017-08-05 15:37 | ED PSYCH CRISIS CONSULTATION ---
Crisis Consult Basic Assessment Date of Consult: 08/05/17 Responsible Person/Accompanied By: self Insurance Authorization: Insurance #1: Insurance name: MEDICARE A Phone number: Policy number: [id number] Group number: Authorization number: ED Provider: Patient's ED Provider: Aenesh Dowell Primary Care Physician: Patient's PCP: Rosas Felder MD PCP's Current Psychiatrist: Dr. Jenkins Chief Complaint: Psychiatric Related Complaint Patient's Quote: "couldn't take my zoloft and welbutrin, they don't go together well Present Illness: Pt is a 72 year old male who presented to the ED with complaints about the medications that he has been taking, Methadone 88mg, Zoloft 25mg and Wellbutrin 150mg. Pt reports the mixture of the medications is causing him the following symptoms: feeling sweaty, restless, having poor sleep, poor concentration, going to the bathroom constantly to urinate but difficulties actually going and reports being constipated. Pt reports not taking his Zoloft and Wellbutrin this morning. Pt also takes 42mg of insulin twice daily as well. Pt has been concerned that the methadone, zoloft and wellbutrin have not been working well. Pt reports going crazy and cant breathe this past week. Pt denies SI, HI, VH, AH at this time. Pt came in after speaking to Dr. Jenkins and she suggested he should come to the ED to be evaluated. Pt reported he made suicidal statements to Dr. Jenkins stating he was going to shoot himself with a gun but didnt mean it and wouldnt do it. Pt reports he worries about medications due to being admitted a couple weeks ago for what he reports was Serotonin Syndrome. LANA Michaels reports that pt today clear of serotonin syndrome. Pt is taking 88mg of methadone and has been sober from narcotics for 30 years now and takes it for his chronic back pain. He went to [facility] for his opiate abuse 30 years ago. Pt has been to CPS previously in June of 2017, has been to intensive outpatient and outpatient services at [place]. Pt sees Dr. Jenkins and outpatient clinician Tayler. Pt reports his next appointment with Dr. Jenkins is August 17. Pt has a supportive and feels safe at home. Per Dr. Blake, he spoke with Dr. Jenkins and came to the conclusion to have pt admitted inpatient for multiple suicidal statements he made while on the phone with Dr. Jenkins and for medication re-evaluation. Pt is in agreement to go inpatient. He signed in voluntarily. C-SSRS was completed and risk factors include suicidal thoughts, feeling isolated, feeling alone, previously admitted to inpatient, psychiatric diagnoses , hopeless, helpless, feeling trapped, depressive episodes, severe anxiety, chronic pain. Protective factors include supportive family, reasons for living, fear of , suicide being immoral, sober for 30 years. Patient's Address: [address] [place] [address] Other Who Do You Live With? Spouse Family/Informants Interviewed: no family/collateral ID'd Allergies - Coded Allergies: Penicillins (Severe, ANAPHYLAXIS 04/10/15) Current Medications - Scheduled Medications Aspirin (Ecotrin*) 81 MG TABLET.DR 1 TAB PO DAILY HEART/BLOOD (Reported) Entered as Reported by Rosa Louise on 03/15/17 1238 Azilsartan Med/Chlorthalidone (Edarbyclor 40-25 MG Tablet) 40 MG-25 MG TABLET 1 TAB PO DAILY BP (Reported) Entered as Reported by Rosa Louise on 03/15/17 1235 Bupropion HCl (Wellbutrin XL) 150 MG TAB.ER.24H 150 MG PO 0800 depression #30 TAB Prescribed by Anshul Blake MD on 06/11/17 Diltiazem HCl (Diltiazem 24HR ER) 240 MG CAP.ER.24H 1 CAP PO DAILY HEART/BP # 90 (Reported) Entered as Reported by Rosa Louise on 03/15/17 1234 Insulin Aspart Protam & Aspart (Novolog Mix 70-30 Flexpen Syrn) 100 UNIT/ML (70- 30) INSULN.PEN 40 UNITS SC BID DM #1 PEN Prescribed by Anshul Blake MD on 06/11/17 Levothyroxine Sodium (Synthroid) 112 MCG TABLET 2 TAB PO DAILY THYROID #180 ( Reported) Entered as Reported by Rosa Louise on 03/15/17 1238 Methadone HCl 5 MG/5 ML SOLUTION 88 MG PO DAILY CHRONIC PAIN (Reported) Entered as Reported by Rosa Louise on 03/15/17 1240 Naldemedine Tosylate (Symproic) 0.2 MG TABLET 1 TAB PO DAILY UNKNOWN #30 ( Reported) Entered as Reported by Nick Soto on 08/05/17 1434 Pantoprazole Sodium 40 MG TABLET.DR 1 TAB PO DAILY GI #90 (Reported) Entered as Reported by Nick Soto on 08/05/17 1434 Polyethylene Glycol 3350 (Miralax) 17 GRAM/DOSE POWDER 17 GM PO DAILY constipation #30 Packet Prescribed by Anshul Blake MD on 06/11/17 Sertraline HCl 25 MG TABLET 25 MG PO DAILY anxiety/OCD #30 TAB Prescribed by Anshul Blake MD on 06/11/17 Scheduled PRN Medications Lactulose 10 GRAM/15 ML SOLUTION 30 ML PO BID PRN CONSTIPATION #1800 ML Prescribed by Rosas Levi MD on 07/07/17 Laboratory Results: Laboratory Tests 08/05/17 1355: Anion Gap 13, Estimated GFR 60, BUN/Creatinine Ratio 19.2, Glucose 259 H, Calcium 9.1, Total Bilirubin 0.6, AST 26, ALT 37, Alkaline Phosphatase 99, Total Protein 7.0, Albumin 3.9, Globulin 3.1, Albumin/Globulin Ratio 1.3, CBC w Diff NO MAN DIFF REQ, RBC 4.41 L, MCV 90.3, MCH 30.9, MCHC 34.3, RDW 13.0, MPV 7.9, Gran % 76.9 H, Lymphocytes % 15.5 L, Monocytes % 6.8, Eosinophils % 0.5, Basophils % 0.3, Absolute Granulocytes 7.4 H, Absolute Lymphocytes 1.5, Absolute Monocytes 0.7 H, Absolute Eosinophils 0, Absolute Basophils 0, Serum Alcohol < 10.0 08/05/17 1338: Urine Opiates Screen < 100, Methadone Screen > 735 H, Barbiturate Screen < 60, Ur Phencyclidine Scrn 8.10, Amphetamines Screen 301, U Benzodiazepines Scrn < 85 , Urine Cocaine Screen < 50, Urine Cannabis Screen < 5.00, Urine Color YEL, Urine Clarity CLEAR, Urine pH 6.0, Ur Specific [place] 1.025, Urine Protein 30 H, Urine Ketones TRACE H, Urine Nitrite NEG, Urine Bilirubin NEG, Urine Urobilinogen 0.2, Ur Leukocyte Esterase NEG, Ur Microscopic SEDIMENT EXAMINED, Urine RBC RARE, Ur Epithelial Cells RARE, Urine Hemoglobin NEG, Urine Glucose NEG Past History Past Medical History Neurological: NONE EENT: cataracts Cardiovascular: hypertension, hyperlipidemia Respiratory: NONE Gastrointestinal: NONE Hepatic: NONE Renal: NONE Musculoskeletal: chronic back pain, osteoarthritis, LUMBAR FXS STIMULATOR IN BACK Psychiatric: opioid dependence, substance abuse, on methadone Endocrine: diabetes, hypothyroidism Blood Disorders: NONE Cancer(s): NONE VISUAL MANAGER/Reproductive: NONE Past Surgical History Surgical History: appendectomy, cholecystectomy, thyroidectomy(2007) Psychosocial History Strengths/Capabilities: Supportive , Desire to feel better Treatment-seeking, medication management Physical Limitations (Interventions): Chronic back pain Psychiatric Treatment History Psych Treatment Psychiatric Treatment Yes Inpatient Treatment Yes Outpatient Treatment Yes Location of Treatment [facility] inpatient, [facility], OPS Dates of Treatment june 2017 in [facility] and currently in Outpatient Response to Treatment Completed and currently attending Diagnosis by History: F32.9 - Major depressive disorder, single episode, unspecified, F11.21 - Opioid dependence in remission (moderate use disorder) on agonist therapy (methadone); medical - lumbar radiculopathy, acquired hypothyroidism, diabetes mellitus, mixed hyperlipidemia, hypertension, epigastric pain Substance Use/Abuse History Drug Use/Abuse 1 Substances Used/Abused Yes Substance Used/Abused Prescribed Opiates First Use unk Last Used 1987 How much used/taken unk How often unk For how long unk Drug Use/Abuse 2 Substances Used/Abused Yes Substance Used/Abused Prescribed Opiates (methadone) First Use 2015 Last Used How much used/taken 88 mg How often daily For how long 2 years Route of use oral Substance Abuse Treatment Substance Abuse Treatment Past Substance Abuse TX Yes Inpatient Treatment Yes Outpatient Treatment No Location of Treatment [facility] Reason for Treatment opiate use Dates of Treatment 30 years ago Response to Treatment Completed Current Mental Status Mental Status Orientation: Person, Place, Situation Affect: Appropriate, WNL Speech: WNL Neuro-vegetative: Appetite Decreased, Energy Decreased, Helpless, Loss of Interest, Sleep Disturbance Appearance Appearance- Dress/Hygiene: pt is dressed in hospital scrubs laying in bed, hygiene appropriate. Behaviors Thought Process: WNL Thought Content: WNL Memory: WNL Insight: Fair SI/HI Risk Assessment Past Suicidal Ideation/Attempts Yes Current Suicidal Ideation/Att No Past Homicidal Ideation/Att: No Current Homicidal Ideation/Attempts No Degree of Intent: Thoughts/No Intent Danger To: Self Gravely Disabled: Lack of Insight Risk Factors: age (under 24/over 65), high anxiety/distress, substance abuse, isolate/no social support, male Lethality Ratin PTSD Checklist PTSD Done? patient declined ED Management Sitter: Yes Restraints: No DSM5/PS Stressors/Medical Prob Diagnosis' (DSM 5, Stressors, Medical): F32.9 - Major depressive disorder, single episode, unspecified F11.21 -Opioid dependence in remission (moderate use disorder) on agonist therapy (methadone); medical - lumbar radiculopathy, acquired hypothyroidism, diabetes mellitus, mixed hyperlipidemia, hypertension, epigastric pain Current GAF: 25 Departure Disposition Psych Medical Clearance Date: 08/05/17 Medically Cleared at: 1500 Time Started: 1500 Time Ended: 1530 Psychiatrist Consulted: Dr. Anshul Blake Date Disposition Established: 08/05/17 Time Disposition Established: 1600 Plan for Disposition - Modality: Inpatient Psychiatry Facility: [facility] Rationale for Disposition: Pt spoke to outpatient Doctor and made suicidal statement stating he was going to shoot himself with a gun. Pt is going inpatient because of suicidal statements as well as medication concerns due to the symptoms he has been experiencing. Type of IP Admission: Voluntary Referrals Rosas Felder MD (PCP/Family)
--- NOTE | 2017-08-05 16:45 | IP CRISIS DIAG ASSESS PSYCH ---
Diagnostic Assessment Basic Assessment Insurance Authorization: Insurance #1: Insurance name: MEDICARE A Phone number: Policy number: [id number] Group number: Authorization number: Primary Care Physician: Patient's PCP: Rosas Felder MD PCP's Patient's Quote: "couldn't take my zoloft and welbutrin, they don't go together well Present Illness: Pt is a 72 year old male who presented to the ED with complaints about the medications that he has been taking, Methadone 88mg, Zoloft 25mg and Wellbutrin 150mg. Pt reports the mixture of the medications is causing him the following symptoms: feeling sweaty, restless, having poor sleep, poor concentration, going to the bathroom constantly to urinate but difficulties actually going and reports being constipated. Pt reports not taking his Zoloft and Wellbutrin this morning. Pt also takes 42mg of insulin twice daily as well. BAL is 0 and Utox positive for Methadone. Pt has been concerned that the methadone, zoloft and wellbutrin have not been working well. Pt reports going crazy and cant breathe this past week. Pt denies SI, HI, VH, AH at this time. Pt came in after speaking to Dr. Jenkins and she suggested he should come to the ED to be evaluated. Pt reported he made suicidal statements to Dr. Jenkins stating he was going to shoot himself with a gun but didnt mean it and wouldnt do it. Pt reports he worries about medications due to being admitted a couple weeks ago for what he reports was Serotonin Syndrome. LANA Michaels reports that pt today clear of serotonin syndrome. Pt is taking 88mg of methadone and has been sober from narcotics for 30 years now and takes it for his chronic back pain. He went to [facility] for his opiate abuse 30 years ago. Pt has been to CPS previously in June of 2017, has been to intensive outpatient and outpatient services at [place]. Pt sees Dr. Jenkins and outpatient clinician Tayler. Pt reports his next appointment with Dr. Jenkins is August 17. Pt has a supportive and feels safe at home. Per Dr. Blake, he spoke with Dr. Jenkins and came to the conclusion to have pt admitted inpatient for multiple suicidal statements he made while on the phone with Dr. Jenkins and for medication re-evaluation. Pt is in agreement to go inpatient. He signed in voluntarily. C-SSRS was completed and risk factors include suicidal thoughts, feeling isolated, feeling alone, previously admitted to inpatient, psychiatric diagnoses , hopeless, helpless, feeling trapped, depressive episodes, severe anxiety, chronic pain. Protective factors include supportive family, reasons for living, fear of , suicide being immoral, sober for 30 years. Patient's Address: [address] [place] [address] Other Who Do You Live With? Spouse Feel Safe Where You Live? Yes Feel Safe in Your Relationship Yes Marital Status: Do You Have Children? Yes Ages? 42,39,36 Primary Language? Albanian Language(s) Spoken At Home: Albanian Family/Informants Interviewed: no family/collateral ID'd Allergies - Coded Allergies: Penicillins (Severe, ANAPHYLAXIS 04/10/15) Current Medications - Scheduled Medications Aspirin (Ecotrin*) 81 MG TABLET.DR 1 TAB PO DAILY HEART/BLOOD (Reported) Entered as Reported by Rosa Louise on 03/15/17 1238 Azilsartan Med/Chlorthalidone (Edarbyclor 40-25 MG Tablet) 40 MG-25 MG TABLET 1 TAB PO DAILY BP (Reported) Entered as Reported by Rosa Louise on 03/15/17 1235 Bupropion HCl (Wellbutrin XL) 150 MG TAB.ER.24H 150 MG PO 0800 depression #30 TAB Prescribed by Anshul Blake MD on 06/11/17 Diltiazem HCl (Diltiazem 24HR ER) 240 MG CAP.ER.24H 1 CAP PO DAILY HEART/BP # 90 (Reported) Entered as Reported by Rosa Louise on 03/15/17 1234 Insulin Aspart Protam & Aspart (Novolog Mix 70-30 Flexpen Syrn) 100 UNIT/ML (70- 30) INSULN.PEN 40 UNITS SC BID DM #1 PEN Prescribed by Anshul Blake MD on 06/11/17 Levothyroxine Sodium (Synthroid) 112 MCG TABLET 2 TAB PO DAILY THYROID #180 ( Reported) Entered as Reported by Rosa Louise on 03/15/17 1238 Methadone HCl 5 MG/5 ML SOLUTION 88 MG PO DAILY CHRONIC PAIN (Reported) Entered as Reported by Rosa Louise on 03/15/17 1240 Naldemedine Tosylate (Symproic) 0.2 MG TABLET 1 TAB PO DAILY UNKNOWN #30 ( Reported) Entered as Reported by Nick Soto on 08/05/17 1434 Pantoprazole Sodium 40 MG TABLET.DR 1 TAB PO DAILY GI #90 (Reported) Entered as Reported by Nick Soto on 08/05/17 1434 Polyethylene Glycol 3350 (Miralax) 17 GRAM/DOSE POWDER 17 GM PO DAILY constipation #30 Packet Prescribed by Anshul Blake MD on 06/11/17 Sertraline HCl 25 MG TABLET 25 MG PO DAILY anxiety/OCD #30 TAB Prescribed by Anshul Blake MD on 06/11/17 Scheduled PRN Medications Lactulose 10 GRAM/15 ML SOLUTION 30 ML PO BID PRN CONSTIPATION #1800 ML Prescribed by Rosas Levi MD on 07/07/17 Consequences of Psych Med Use: pt is concerned about his medications, zoloft, wellbutrin, and methadone due to concerns of current symptoms. Lab Results: Laboratory Tests 08/05/17 1355: Anion Gap 13, Estimated GFR 60, BUN/Creatinine Ratio 19.2, Glucose 259 H, Calcium 9.1, Total Bilirubin 0.6, AST 26, ALT 37, Alkaline Phosphatase 99, Total Protein 7.0, Albumin 3.9, Globulin 3.1, Albumin/Globulin Ratio 1.3, CBC w Diff NO MAN DIFF REQ, RBC 4.41 L, MCV 90.3, MCH 30.9, MCHC 34.3, RDW 13.0, MPV 7.9, Gran % 76.9 H, Lymphocytes % 15.5 L, Monocytes % 6.8, Eosinophils % 0.5, Basophils % 0.3, Absolute Granulocytes 7.4 H, Absolute Lymphocytes 1.5, Absolute Monocytes 0.7 H, Absolute Eosinophils 0, Absolute Basophils 0, Serum Alcohol < 10.0 08/05/17 1338: Urine Opiates Screen < 100, Methadone Screen > 735 H, Barbiturate Screen < 60, Ur Phencyclidine Scrn 8.10, Amphetamines Screen 301, U Benzodiazepines Scrn < 85 , Urine Cocaine Screen < 50, Urine Cannabis Screen < 5.00, Urine Color YEL, Urine Clarity CLEAR, Urine pH 6.0, Ur Specific [place] 1.025, Urine Protein 30 H, Urine Ketones TRACE H, Urine Nitrite NEG, Urine Bilirubin NEG, Urine Urobilinogen 0.2, Ur Leukocyte Esterase NEG, Ur Microscopic SEDIMENT EXAMINED, Urine RBC RARE, Ur Epithelial Cells RARE, Urine Hemoglobin NEG, Urine Glucose NEG Toxicology Screen Completed? Yes Results: positive Symptoms of Use: methadone Past History Past Medical History Medical History: Diabetes, Hypertension Past Surgical History Surgical History appendectomy, cholecystectomy, cataract Removal, EXPLORATORY ABD SX BENIGN TUMOR REM CHEST WA THYROIDECTOMY CHEST MASS REMOVED Abuse/Trauma History Trauma History/Current Trauma: Denies Legal History Current Legal Status: none Have you ever been arrested? No Number of Arrests: [address] Dates: none Psychosocial History Strengths/Capabilities: Supportive , Desire to feel better Treatment-seeking, medication management Physical Limitations (Interventions): Chronic back pain Psychiatric Treatment History Psych Treatment Psychiatric Treatment Yes Inpatient Treatment Yes Outpatient Treatment Yes Location of Treatment [facility] inpatient, [facility], OPS Dates of Treatment june 2017 in [facility] and currently in Outpatient Response to Treatment Completed and currently attending Diagnosis by History: F32.9 - Major depressive disorder, single episode, unspecified, F11.21 - Opioid dependence in remission (moderate use disorder) on agonist therapy (methadone); medical - lumbar radiculopathy, acquired hypothyroidism, diabetes mellitus, mixed hyperlipidemia, hypertension, epigastric pain Risk Factors: age (under 24/over 65), high anxiety/distress, substance abuse, isolate/no social support, male Substance Use/Abuse History Drug Use/Abuse minimum 12mo Hx Substances Used/Abused Yes Substance Used/Abused Prescribed Opiates (methadone) First Use 2015 Last Used today How much used/taken 88 mg How often daily For how long 2 years Route of use oral Substance Abuse Treatment Substance Abuse Treatment Past Substance Abuse TX Yes Inpatient Treatment Yes Outpatient Treatment No Location of Treatment [facility] Reason for Treatment opiate use Dates of Treatment 30 years ago Response to Treatment Completed Sexual History Sexually Active No Sexual Orientation Heterosexual Sexual Concerns: None noted Education History Highest Level of Education: high school/GED Current Mental Status Mental Status Orientation: Person, Place, Situation Affect: Appropriate, WNL Speech: WNL Neuro-vegetative: Appetite Decreased, Energy Decreased, Helpless, Loss of Interest, Sleep Disturbance Appearance Appearance- Dress/Hygiene: pt is dressed in hospital scrubs laying in bed, hygiene appropriate. Behaviors Thought Process: WNL Thought Content: WNL Memory: WNL Insight: Fair SI/HI Risk Assessment - Minimum 6mo History- Past Suicidal Ideation/Attempts Yes Current Suicidal Ideation/Att No Past Homicidal Ideation/Att: No Current Homicidal Ideation/Attempts No Degree of Intent: Thoughts/No Intent Danger To: Self Gravely Disabled: Lack of Insight Risk Factors: age (under 24/over 65), high anxiety/distress, substance abuse, isolate/no social support, male Lethality Ratin Needs/Init TX Plan/Goals: regulate mood and eliminate suicidal thoughts by going inpatient. AUDIT-C Questionnaire: AUDIT-C Questionnaire: Response Value ETOH use in the past year Never 0 # drinks typical/day Doesn't Drink 0 6 or > drinks per occasion Never 0 Total 0 DSM5/PS Stressors/Medical Prob Diagnosis' (DSM 5, Stressors, Medical): F32.9 - Major depressive disorder, single episode, unspecified F11.21 -Opioid dependence in remission (moderate use disorder) on agonist therapy (methadone); medical - lumbar radiculopathy, acquired hypothyroidism, diabetes mellitus, mixed hyperlipidemia, hypertension, epigastric pain Current GAF: 25
--- NOTE | 2017-08-05 17:09 | ED PSY CRISIS COLLATERAL NOTE ---
Collateral Note Collateral Note Family/Inform/Beth Contacts: Crisis informed pt's Alee about him being admitted to inpatient to [facility]. Alee was agreeble and asked if she can be informed when he does go to [facility]PS.
[2017-08-05 18:03] VITALS: BP 113/73
[2017-08-05] MEDS ORDERED: EDARBYCLOR 40-1 EAC1 PO (19:45)
[2017-08-05 19:56] VITALS: BP 125/55
--- NOTE | 2017-08-06 07:39 | Cons- Endocrinology ---
General Information and HPI Consulting Request Date of Consult: 08/06/17 Requested By: medical team Reason for Consult: uncontrolled diabetes Source of Information: patient, old records Exam Limitations: no limitations History of Present Illness: This 72-year-old male came to the emergency room because he was very agitated. He had suicidal thoughts. The patient has a past history of depression, anxiety, chronic pain, 42 units of 7030 NovoLog mix twice a day. His sugars have been only in fair control as an outpatient. Patient also has a history of substance abuse and is now on methadone. The patient also has a history of thyroid cancer. He is being treated with levothyroxine 224 mcg daily. So far there has been no evidence of recurrence of his cancer. Allergies/Medications Allergies: Coded Allergies: Penicillins (Severe, ANAPHYLAXIS 04/10/15) Home Med List: Aspirin (Ecotrin*) 81 MG TABLET.DR 1 TAB PO DAILY HEART/BLOOD (Reported) Azilsartan Med/Chlorthalidone (Edarbyclor 40-25 MG Tablet) 40 MG-25 MG TABLET 1 TAB PO DAILY HEART (Reported) Bupropion HCl (Wellbutrin XL) 150 MG TAB.ER.24H 150 MG PO 0800 depression Diltiazem HCl (Diltiazem 24HR ER) 240 MG CAP.ER.24H 1 CAP PO DAILY HEART/BP ( Reported) Insulin Aspart Protam & Aspart (Novolog Mix 70-30 Flexpen Syrn) 100 UNIT/ML (70- 30) INSULN.PEN 40 UNITS SC BID DM Levothyroxine Sodium (Synthroid) 112 MCG TABLET 2 TAB PO DAILY THYROID ( Reported) Methadone HCl 5 MG/5 ML SOLUTION 88 MG PO DAILY CHRONIC PAIN (Reported) Naldemedine Tosylate (Symproic) 0.2 MG TABLET 1 TAB PO DAILY UNKNOWN ( Reported) Pantoprazole Sodium 40 MG TABLET.DR 1 TAB PO DAILY GI (Reported) Polyethylene Glycol 3350 (Miralax) 17 GRAM/DOSE POWDER 17 GM PO DAILY constipation Sertraline HCl 25 MG TABLET 25 MG PO DAILY anxiety/OCD Current Medications: Current Medications Sig/Radha Start time Last Medication Dose Route Stop Time Status Admin Acetaminophen 650 MG ONCE ONE 08/05 2029 DC 08/05 PO 08/05 Aspirin Buffered 81 MG DAILY 08/05 1618 AC PO Chlorthalidone 25 MG DAILY 08/06 09 AC PO Clonazepam 1 MG 2000 08/06 1999 AC 08/05 PO 08/12 1958 195 Diltiazem HCl 240 MG DAILY 08/06 899 AC PO Insulin Aspart 0 TIDAC 08/05 1700 AC SC Insulin Aspart Prota 40 UNIT 7:30 AM, & 4:30 PM 08/05 1630 DC 08/05 70%/Aspart 30% SC 1728 Insulin Detemir 20 UNITS BID 08/06 899 AC SC Lactulose 20 GM Q12P PRN 08/05 1630 AC PO Levothyroxine Sodium 0.224 MG DAILY AC 08/06 699 AC 08/06 PO 0653 Losartan Potassium 50 MG DAILY 08/06 899 AC PO Melatonin 5 MG 08/05 AC 08/05 PO 2058 Methadone HCl 88 MG 08/06 UNVr PO Non-Formulary 0 SEE ADMIN CRITERIA 08/05 1645 UNVr Medication ANY Omeprazole 40 MG DAILY AC 08/06 699 AC 08/06 PO 53 Pantoprazole Sodium 40 MG DAILY 08/06 899 CAN IV Polyethylene Glycol 17 GM DAILY 08/06 899 AC PO Sertraline HCl 50 MG DAILY 08/06 09 AC PO Sertraline HCl 25 MG ONCE ONE 08/05 1630 DC PO 08/05 1631 Review of Systems Review of Systems Constitutional: Denies: chills, fever. Cardiovascular: Denies: chest pain. Respiratory: Denies: short of breath. GI: Denies: abdominal pain, nausea, vomiting. Genitourinary: Denies: dysuria. Skin: Reports: no symptoms. 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 Home Who Do You Live With? spouse Services at Home: None Primary Language: [place] Island[place] ETOH Use: denies use Illicit Drug Use: ON METHADONE X 2 YEARS Functional Ability ADLs Independent: dressing, eating, toileting, bathing. Ambulation: independent IADLs Independent: shopping, housework, finances, food prep, telephone, transportation , medication admin. Exam & Diagnostic Data Last 24 Hrs of Vital Signs/I&O Vital Signs Date Time Temp Pulse Resp B/P B/P Pulse O2 O2 Flow FiO2 Mean Ox Delivery Rate 08/06 1955 98.2 93 125/55 08/05 1803 98.1 79 113/08/05 1252 97.0 54 18 181/75 97 Room Air Room Air Intake & Output 08/06 0808/06 0000 08/05 1600 Intake Total Output Total 120 Balance -120 Output, Urine 120 Patient 237 lb 240 lb Weight Weight Reported by Patient Measurement Method Vital Signs Date Time Temp Pulse Resp B/P B/P Pulse O2 O2 Flow FiO2 Mean Ox Delivery Rate 08/06 1955 98.2 93 125/08/05 1803 98.1 79 113/73 08/05 1252 97.0 54 18 181/75 97 Room Air Room Air Intake & Output 08/06 0808/06 0000 08/05 1600 Intake Total Output Total 120 Balance -120 Output, Urine 120 Patient 237 lb 240 lb Weight Weight Reported by Patient Measurement Method Physical Exam General Appearance: well developed/nourished, alert, awake, anxious Head: normal appearance Eyes: Bilateral: normal appearance. Neck: normal inspection Respiratory: normal breath sounds Cardiovascular: regular rate/rhythm Gastrointestinal: normal bowel sounds, soft Extremities: normal inspection Labs/Wero Results: Laboratory Tests 08/05 08/05 1355 1338 Chemistry Sodium (137 - 145 mmol/L) 136 L Potassium (3.5 - 5.1 mmol/L) 4.2 Chloride (98 - 107 mmol/L) 97 L Carbon Dioxide (22 - 30 mmol/L) 26 Anion Gap (5 - 16) 13 BUN (9 - 20 mg/dL) 23 H Creatinine (0.7 - 1.2 mg/dL) 1.2 Estimated GFR (>60 ml/min) 60 BUN/Creatinine Ratio (7 - 25 %) 19.2 Glucose (65 - 99 mg/dL) 259 H Calcium (8.4 - 10.2 mg/dL) 9.1 Total Bilirubin (0.2 - 1.3 mg/dL) 0.6 AST (17 - 59 U/L) 26 ALT (21 - 72 U/L) 37 Alkaline Phosphatase (< 127 U/L) 99 Total Protein (6.3 - 8.2 g/dL) 7.0 Albumin (3.5 - 5.0 g/dL) 3.9 Globulin (1.9 - 4.2 gm/dL) 3.1 Albumin/Globulin Ratio (1.1 - 2.2 %) 1.3 Hematology CBC w Diff NO MAN DIFF REQ WBC (4.8 - 10.8 /CUMM) 9.6 RBC (4.70 - 6.10 /CUMM) 4.41 L Hgb (14.0 - 18.0 G/DL) 13.6 L Hct (42 - 52 %) 39.8 L MCV (80.0 - 94.0 FL) 90.3 MCH (27.0 - 31.0 PG) 30.9 MCHC (33.0 - 37.0 G/DL) 34.3 RDW (11.5 - 14.5 %) 13.0 Plt Count (130 - 400 /CUMM) 262 MPV (7.4 - 10.4 FL) 7.9 Gran % (42.2 - 75.2 %) 76.9 H Lymphocytes % (20.5 - 51.1 %) 15.5 L Monocytes % (1.7 - 9.3 %) 6.8 Eosinophils % (0 - 5 %) 0.5 Basophils % (0.0 - 2.0 %) 0.3 Absolute Granulocytes (1.4 - 6.5 /CUMM) 7.4 H Absolute Lymphocytes (1.2 - 3.4 /CUMM) 1.5 Absolute Monocytes (0.10 - 0.60 /CUMM) 0.7 H Absolute Eosinophils (0.0 - 0.7 /CUMM) 0 Absolute Basophils (0.0 - 0.2 /CUMM) 0 Toxicology Urine Opiates Screen (>2000 NG/ML) < 100 Methadone Screen (>300 NG/ML) > 735 H Barbiturate Screen (>200 NG/ML) < 60 Ur Phencyclidine Scrn (>25 NG/ML) 8.10 Amphetamines Screen (>1000 NG/ML) 301 U Benzodiazepines Scrn (>200 NG/ML) < 85 Urine Cocaine Screen (>300 NG/ML) < 50 Urine Cannabis Screen (>50 NG/ML) < 5.00 Serum Alcohol (<10 MG/DL) < 10.0 Urines Urine Color (YEL,AMB,STR) YEL Urine Clarity (CLEAR) CLEAR Urine pH (5.0 - 8.0) 6.0 Ur Specific [place] (1.001 - 1.035) 1.025 Urine Protein (NEG,<30 MG/DL) 30 H Urine Ketones (NEG) TRACE H Urine Nitrite (NEG) NEG Urine Bilirubin (NEG) NEG Urine Urobilinogen (0.1 - 1.0 EU/dl) 0.2 Ur Leukocyte Esterase (NEG) NEG Ur Microscopic SEDIMENT EXAMINED Urine RBC (0 - 5 /HPF) RARE Ur Epithelial Cells (NONE,FEW) RARE Urine Hemoglobin (NEG) NEG Urine Glucose (N MG/DL) NEG Assessment/Plan Assessment/Plan Sugar has been uncontrolled as an outpatient. He does not follow a good diet and sometimes forgets to take his insulin. We will switch him to a basal bolus regimen while in the hospital. Suggest begin Levemir 20 units twice a day. In addition we will begin sliding scale NovoLog before meals starting with 8 units for sugar of 80-150. We will check his sugars 4 times a day. Further adjustments in the insulin may be necessary. The patient The patient also has a history of thyroid cancer. We should recheck his thyroid function tests. Continue his usual dose of thyroid hormone. Consult Acknowledgment - Thank you for your consult request.
[2017-08-06 07:56] VITALS: BP 121/58
[2017-08-06 12:13] VITALS: BP 102/70
--- NOTE | 2017-08-06 12:39 | CPS PROVIDER INIT ASMT PSYCH ---
Psychiatric Admission Pca's Note Reviewed: Yes Patient Seen and Examined: Yes Identifying Information: The patient is a 72-year-old white male Chief Complaint: The patient complained about the medications that he stay taking. He claims that the medications "fucked me up" Reaction to Hospitalization: The patient was not in favor of hospitalization but he ultimately signed in voluntarily History of Present Illness Onset of Illness: As per Elizabeth Carlin LCSW's note on 08/06/2017: "Pt reports the mixture of the medications is causing him the following symptoms : feeling sweaty, restless, having poor sleep, poor concentration, going to the bathroom constantly to urinate but difficulties actually going and reports being constipated. Pt reports not taking his Zoloft and Wellbutrin this morning. Pt also takes 42mg of insulin twice daily as well. Pt has been concerned that the methadone, zoloft and wellbutrin have not been working well. Pt reports going crazy and cant breathe this past week. Pt denies SI, HI, VH, AH at this time. Pt came in after speaking to Dr. Jenkins and she suggested he should come to the ED to be evaluated. Pt reported he made suicidal statements to Dr. Jenkins stating he was going to shoot himself with a gun but didnt mean it and wouldn t do it. Pt reports he worries about medications due to being admitted a couple weeks ago for what he reports was Serotonin Syndrome. LANA Michaels reports that pt today clear of serotonin syndrome." Circumstances Leading to Admission: See above Problem(s) Justifying Need for Admission: Suicide threats Past Psychiatric History Past Diagnosis(es)- if any: MDD, OCD, generalized anxiety Past Precipitating Factors- if any: He attributes to his hospitalizations to medications and medication side effects - Include inpatient and outpatient treatment Treatment History: The patient was just here in May 2017 on Inpatient Psychiatry inpatient 30 years ago after he quit using narcotic pills and was having relationship difficulties. denied suicide attempts. in outpatient tx now. History of Suicide Attempts or Gestures Denied any history of suicide attempts Substance Abuse History: 30 years ago last alcohol drink, he denied any regular use however in record he was noted to have more significant use as a younger adult. hx narcotic use many years ago, now on methadone for pain Allergies: Coded Allergies: Penicillins (Severe, ANAPHYLAXIS 04/10/15) Home Med List: Aspirin (Ecotrin*) 81 MG TABLET.DR 1 TAB PO DAILY HEART/BLOOD (Reported) Entered as Reported by Rosa Louise on 03/15/17 1238 Azilsartan Med/Chlorthalidone (Edarbyclor 40-25 MG Tablet) 40 MG-25 MG TABLET 1 TAB PO DAILY BP (Reported) Entered as Reported by Rosa Louise on 03/15/17 1235 Bupropion HCl (Wellbutrin XL) 150 MG TAB.ER.24H 150 MG PO 0800 depression #30 TAB Prescribed by Anshul Blake MD on 06/11/17 Diltiazem HCl (Diltiazem 24HR ER) 240 MG CAP.ER.24H 1 CAP PO DAILY HEART/BP # 90 (Reported) Entered as Reported by Rosa Louise on 03/15/17 1234 Insulin Aspart Protam & Aspart (Novolog Mix 70-30 Flexpen Syrn) 100 UNIT/ML (70- 30) INSULN.PEN 40 UNITS SC BID DM #1 PEN Prescribed by Anshul Blake MD on 06/11/17 Levothyroxine Sodium (Synthroid) 112 MCG TABLET 2 TAB PO DAILY THYROID #180 ( Reported) Entered as Reported by Rosa Louise on 03/15/17 1238 Methadone HCl 5 MG/5 ML SOLUTION 88 MG PO DAILY CHRONIC PAIN (Reported) Entered as Reported by Rosa Louise on 03/15/17 1240 Naldemedine Tosylate (Symproic) 0.2 MG TABLET 1 TAB PO DAILY UNKNOWN #30 ( Reported) Entered as Reported by Nick Soto on 08/05/17 1434 Pantoprazole Sodium 40 MG TABLET. 1 TAB PO DAILY GI #90 (Reported) Entered as Reported by Nick Soto on 08/05/17 1434 Polyethylene Glycol 3350 (Miralax) 17 GRAM/DOSE POWDER 17 GM PO DAILY constipation #30 Packet Prescribed by Anshul Blake MD on 06/11/17 Sertraline HCl 25 MG TABLET 25 MG PO DAILY anxiety/OCD #30 TAB Prescribed by Anshul Blake MD on 06/11/17 Scheduled PRN Medications Lactulose 10 GRAM/15 ML SOLUTION 30 ML PO BID PRN CONSTIPATION #1800 ML Prescribed by Rosas Levi MD on 07/07/17 - Include any medical condition(s) that may - impact the patient's recovery/remission Past Medical History: chronic back pain, osteoarthritis, LUMBAR FXS STIMULATOR IN BACK Past History Medical History Neurological: NONE EENT: cataracts Cardiovascular: hypertension, hyperlipidemia Respiratory: NONE Gastrointestinal: CHRONIC CONSTIPATION Hepatic: NONE Renal: NONE Musculoskeletal: chronic back pain, osteoarthritis, spinal stenosis, STIMULATOR IN BACK Psychiatric: opioid dependence, substance abuse, on methadone Endocrine: diabetes, hypothyroidism Blood Disorders: NONE 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 History of MRSA: No History of VRE: No History of CDIFF: No Isolation History: Standard Surgical History Surgical History: appendectomy, cholecystectomy, cataract Removal, EXPLORATORY ABD SX BENIGN TUMOR REM CHEST WA THYROIDECTOMY CHEST MASS REMOVED Psychiatric Family/Social Hx Family History Psychiatric Illness: Denies family history of psychiatric illness Substance Use: Denies family history of alcoholism or substance abuse Suicides: Denied family history of suicides Social History Living Situation: He lives with his and grandchild, his children (adults) live close by Significant Relationships (family/friends): , 4 year old granddaughter Education: Some college education Vocation/Occupation: worked in [employer] until it was sold, last worked a year ago. Legal: No history of arrests Other Social History: No history of arrests Healthly Behaviors Screening Tobacco Screening Tobacco Use from ED Docu: Never used - If tobacco counseling indicated - the following topics are required. - #1 Recognizing dangerous situations. - #2 Coping Skills. - #3 Basic information about quitting. Status of Tobacco Cessation Counseling: Not Applicable Cessation Med Status Not Applicable Alcohol Screening - ETOH screen POS if BAL >=80 or Audit-C>= M4/F3 Audit-C Score from Diag Assess: 0 Blood Alcohol Level: Laboratory Tests 08/05 1355 Toxicology Serum Alcohol (<10 MG/DL) < 10.0 Alcohol Use Screening Results: Neg per Audit C &/or BAL - If ETOH counseling indicated - the following topics are required. - #1 Express concern about the patient's - drinking at unhealthy levels, include informing - of national norms for moderate drinking: - men <= 14 drinks/week, max 4 drinks/occasion - women <= 7 drinks/week, max 3 drinks/occasion - #2 Providing feedback, including linking alcohol to - negative physical effects (liver injury, hypertension) - negative emotional effects (relationship problems and - depression) - negative occupational consequences (reduced work - performance) - #3 Advising the patient to abstain from alcohol or - to drink below national norms for moderate drinking - (as listed above). Status of ETOH Use Counseling: N/A B/C NO ETOH Use Metabolic Screening - Screen if on a Neuroleptic Medication - Metabolic screening should include: - Blood Pressure, BMI, Glucose or Hgb A1c, & a - Lipid profile from within the past 365 days. Metabolic Screening Not Applicable, patient not on a neuroleptic. Exam and Plan Mental Status Examination Ambulation Status: The patient uses a walker to ambulate Appearance: Overweight white male Attitude towards examiner: Cooperative Psychomotor activity: Normal psychomotor activity Behavior: No abnormal behaviors. Quality of speech: Normal speech. Affect: Constricted affect. Mood: Anxious and depressed. Suicidal Ideation: Denied thinking of suicide. Homicidal Ideation: Denied thinking of homicide. Hallucinations: Denied hallucinations. Paranoid/Delusional Material: Denied feeling paranoid, there were no delusions during the interview. Difficulties with thought organization: He is coherent, there is no thought disorder, however he is obsessive and ruminative Insight: Partial insight Judgment: Impaired judgment Orientation: Alert and oriented to time, place, and person. Cognition: Appears to process information appropriately Memory Function: No evidence of short-term memory deficits during the interview. Estimate of intellectual functioning: Average. Assets/Strengths Patient Identified Assets/Strengths: The patient is intelligent, resourceful, and he has a supportive family. Impression/Plan Impression and Plan: 72-year-old white male with history of depression and severe anxiety and severe OCD presents back to the hospital thinking that he is having side effects from the medications and accusing the medications of "fucking me up" The patient has been obsessed with serotonin syndrome for several months now because allegedly he was told he had a serotonin syndrome at one point most likely because he took Zoloft with Cymbalta at the same time His fear of this and or serotonin syndrome is understandable but seems to be extremely exaggerated and pretty much is resulting in his decision paralysis regarding medications - Include all active medical diagnosis that require tx DSM 5 Diagnosis(es): MDD, recurrent, severe OCD Generalized anxiety disorder Opioid use disorder, on maintenance minute medication Other specified personality disorder, 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 Factors: The patient will be discharged early next week
--- NOTE | 2017-08-06 13:56 | History & Physical ---
General Information and HPI MD Statement: I have seen and personally examined MIGUEL ANGEL CARRERA and documented this H&P. The patient is a 72 year old M who presented with a patient stated chief complaint of depression and suicidal ideation. Source of Information: patient, old records Exam Limitations: no limitations History of Present Illness: The patient is a 72 yo male with h/o HTN, HL, depression, anxiety, H/O thyroid ca/thyrodtmy, chronic back pain (h/o lumbar fractures and lumbar stimulator), DM2 (on insulin), h/o opioid dependence on Methadone, who presented with symptoms of worsening depression with suicidal ideation. He had discontinued his sertraline and bupropion on his own a couple of days prior to admission. He also c/o prostate symptoms (seen by Dr. Salinas) and had tried a medication that did not help his symptoms. His main complaint at the time of my exam is constipation. Allergies/Medications Allergies: Coded Allergies: Penicillins (Severe, ANAPHYLAXIS 04/10/15) Home Med list Aspirin (Ecotrin*) 81 MG TABLET.DR 1 TAB PO DAILY HEART/BLOOD (Reported) Azilsartan Med/Chlorthalidone (Edarbyclor 40-25 MG Tablet) 40 MG-25 MG TABLET 1 TAB PO DAILY HEART (Reported) Bupropion HCl (Wellbutrin XL) 150 MG TAB.ER.24H 150 MG PO 0800 depression Diltiazem HCl (Diltiazem 24HR ER) 240 MG CAP.ER.24H 1 CAP PO DAILY HEART/BP ( Reported) Insulin Aspart Protam & Aspart (Novolog Mix 70-30 Flexpen Syrn) 100 UNIT/ML (70- 30) INSULN.PEN 40 UNITS SC BID DM Levothyroxine Sodium (Synthroid) 112 MCG TABLET 2 TAB PO DAILY THYROID ( Reported) Methadone HCl 5 MG/5 ML SOLUTION 88 MG PO DAILY CHRONIC PAIN (Reported) Naldemedine Tosylate (Symproic) 0.2 MG TABLET 1 TAB PO DAILY UNKNOWN ( Reported) Pantoprazole Sodium 40 MG TABLET.DR 1 TAB PO DAILY GI (Reported) Polyethylene Glycol 3350 (Miralax) 17 GRAM/DOSE POWDER 17 GM PO DAILY constipation Sertraline HCl 25 MG TABLET 25 MG PO DAILY anxiety/OCD Past History Travel History Traveled to [place] past 21 day No Medical History Neurological: NONE EENT: cataracts Cardiovascular: hypertension, hyperlipidemia Respiratory: NONE Gastrointestinal: CHRONIC CONSTIPATION Hepatic: NONE Renal: NONE Musculoskeletal: chronic back pain, osteoarthritis, spinal stenosis, STIMULATOR IN BACK Psychiatric: opioid dependence, substance abuse, on methadone Endocrine: diabetes, hypothyroidism Blood Disorders: NONE Cancer(s): NONE, thyroid cancer FISH WARDEN/Reproductive: 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 Home Who Do You Live With? spouse Services at Home: None Primary Language: Setswana Smoking Status: Never Smoked ETOH Use: denies use Illicit Drug Use: ON METHADONE X 2 YEARS Functional Ability ADLs Independent: dressing, eating, toileting, bathing. Ambulation: independent (was using walker at time of ex) IADLs Independent: shopping, housework, finances, food prep, telephone, transportation , medication admin. Review of Systems Review of Systems Constitutional: Denies: no symptoms. EENTM: Denies: no symptoms. Cardiovascular: Denies: no symptoms. Respiratory: Denies: no symptoms. GI: Reports: constipation. Genitourinary: Reports: frequency, hesitation, nocturia. Musculoskeletal: Reports: back pain (chronic). Skin: Denies: no symptoms. Neurological/Psychological: Reports: anxiety, depressed, emotional problems. Hematologic/Endocrine: Denies: no symptoms. Immunologic/Allergic: Reports: splenectomy. Denies: no symptoms. Exam & Diagnostic Data Last 24 Hrs of Vital Signs/I&O Vital Signs Date Time Temp Pulse Resp B/P B/P Pulse O2 O2 Flow FiO2 Mean Ox Delivery Rate 08/06 1922 96.8 71 116/65 08/06 1541 76 96/63 08/06 1213 79 102/70 08/06 0801 96.4 79 18 121/58 08/06 0756 96.4 79 121/58 Intake & Output 08/06 1600 08/06 0800 08/06 0000 Intake Total Output Total Balance Patient 237 lb Weight Physical Exam General Appearance Alert, Oriented X3, Cooperative (some back pain) Skin No Rashes, No Breakdown, No Significant Lesion HEENT Atraumatic, PERRLA, EOMI, Mucous Membr. moist/pink Neck Supple, No JVD, +2 Carotid Pulse wo Bruit, No LAD (S/P THYROIDECTOMY) Cardiovascular Regular Rate, Normal S1, Normal S2, No Murmurs Lungs Clear to Auscultation, Normal Air Movement Abdomen Normal Bowel Sounds, Soft, No Tenderness, No Hepatospenomegaly, No Masses Neurological Exam Findings: Normal Gait, Normal Speech, Strength at 5/5 X4 Ext, Normal Tone, Sensation Intact, Cranial Nerves 3-12 NL, Reflexes 2+ Cranial Nerves II through XII: INTACT Extremities No Clubbing, No Cyanosis, No Edema, Normal Pulses, No Tenderness/ Swelling Vascular Normal Pulses, Pulses Symmetrical Last 24 Hrs of Labs/Wero: Laboratory Tests 08/06/17 0921: TSH 0.964, Free T4 1.93 Assessment/Plan Assessment: Impression/Plan: #Depression/Suicidal Ideation- admitted to [facility] Psychiatry for evaluation. The patient stated he had stopped his anti-depressant meds (Sertraline/Bupropion ) prior to becoming more depressed. Plan: Admit to [facility]/Psychiatry. Care as per psychiatry. #DM2- sugars only fairly controlled. The patient has lost 40 lbs over recent months. Plan: Appreciate Endocrinology consult- Dr. Felder (done). Continue insulin as per Dr. Felder. #HTN- BP good. Plan: Continue Diltiazem. #Constipation- chronic. Plan: Will order bowel regimen. Colace,Senna, Miralax. #Hypothyroid- s/p thyroidectomy for thyroid ca. Euthyroid on Levothyroxine. Plan: Continue Levothyroxine. #GERD- on Pantoprazole. Plan: Continue Pantoprazole. #LUTS- urinary symptoms noted. Had seen Dr. Salinas (Urology) who tried him on a medication which was not successful. Some symptoms may be related to constipation. Plan: Will discuss with Dr. Salinas and consider alternative. As Ranked By This Provider Problem List: 1. Constipation 2. Hypothyroidism 3. Hypertension 4. Diabetes 5. Depression 6. Anxiety Miscellaneous Miscellaneous Documentation Attending Case Discussed With: Lou LOZANO,Anshul Primary Care Physician: Rosas Felder MD. Patient sees these Specialists Dr. Salinas - Urology Level of Patient Care: [facility]
--- NOTE | 2017-08-06 14:43 | SOCIAL WORKER SOCIAL HX PSYCH ---
Social History Basic Assessment Insurance Authorization: Insurance #1: Insurance name: MED[employer]ARE [employer] Phone number: Policy number: [id number] Group number: Authorization number: Curr Source of Income/Entitlements: [facility] Primary Care Physician: Patient's PCP: Rosas Felder MD PCP's Present Problem: The following social was written and obtained by LAI Solorio student: This following "patient qoute" and "present illness" was documented by the crisis note: "Patient's Quote: "couldn't take my zoloft and welbutrin, they don't go together well Present Illness: Pt is a 72 year old male who presented to the ED with complaints about the medications that he has been taking, Methadone 88mg, Zoloft 25mg and Wellbutrin 150mg. Pt reports the mixture of the medications is causing him the following symptoms: feeling sweaty, restless, having poor sleep, poor concentration, going to the bathroom constantly to urinate but difficulties actually going and reports being constipated. Pt reports not taking his Zoloft and Wellbutrin this morning. Pt also takes 42mg of insulin twice daily as well. BAL is 0 and Utox positive for Methadone. Pt has been concerned that the methadone, zoloft and wellbutrin have not been working well. Pt reports going crazy and cant breathe this past week. Pt denies SI, HI, VH, AH at this time. Pt came in after speaking to Dr. Jenkins and she suggested he should come to the ED to be evaluated. Pt reported he made suicidal statements to Dr. Jenkins stating he was going to shoot himself with a gun but didnt mean it and wouldnt do it. Pt reports he worries about medications due to being admitted a couple weeks ago for what he reports was Serotonin Syndrome. LANA Michaels reports that pt today clear of serotonin syndrome." Primary Language? Polish Language(s) Spoken At Home: Polish Living Situation Rents or Owns Home? owns ([address] [place] [address]) Feel Safe Where You Are Living Yes Feel Safe in Relationships? Yes Allergies - Coded Allergies: Penicillins (Severe, ANAPHYLAXIS 04/10/15) Current Medications - Scheduled Medications Aspirin (Ecotrin*) 81 MG TABLET.DR 1 TAB PO DAILY HEART/BLOOD (Reported) Entered as Reported by Rosa Louise on 03/15/17 1238 Last Taken: 08/03/17 0800 Azilsartan Med/Chlorthalidone (Edarbyclor 40-25 MG Tablet) 40 MG-25 MG TABLET 1 TAB PO DAILY HEART #30 (Reported) Entered as Reported by Meme Reinoso on 08/05/17 1945 Bupropion HCl (Wellbutrin XL) 150 MG TAB.ER.24H 150 MG PO 0800 depression #30 TAB Prescribed by Anshul Blake MD on 06/11/17 Last Taken: 08/04/17 0800 Diltiazem HCl (Diltiazem 24HR ER) 240 MG CAP.ER.24H 1 CAP PO DAILY HEART/BP # 90 (Reported) Entered as Reported by Rosa Louise on 03/15/17 1234 Last Taken: 08/05/17 0800 Insulin Aspart Protam & Aspart (Novolog Mix 70-30 Flexpen Syrn) 100 UNIT/ML (70- 30) INSULN.PEN 40 UNITS SC BID DM #1 PEN Prescribed by Anshul Blake MD on 06/11/17 Last Taken: 08/05/17 1700 Levothyroxine Sodium (Synthroid) 112 MCG TABLET 2 TAB PO DAILY THYROID #180 ( Reported) Entered as Reported by Rosa Louise on 03/15/17 1238 Last Taken: 08/05/17 0800 Methadone HCl 5 MG/5 ML SOLUTION 88 MG PO DAILY CHRONIC PAIN (Reported) Entered as Reported by Rosa Louise on 03/15/17 1240 Last Taken: 08/05/17 0730 Naldemedine Tosylate (Symproic) 0.2 MG TABLET 1 TAB PO DAILY UNKNOWN #30 ( Reported) Entered as Reported by Nick Soto on 08/05/17 1434 Last Taken: 08/05/17 0800 Pantoprazole Sodium 40 MG TABLET.DR 1 TAB PO DAILY GI #90 (Reported) Entered as Reported by Nick Soto on 08/05/17 1434 Last Taken: 08/05/17 0800 Polyethylene Glycol 3350 (Miralax) 17 GRAM/DOSE POWDER 17 GM PO DAILY constipation #30 Packet Prescribed by Anshul Blake MD on 06/11/17 Last Taken: 08/04/17 1200 Sertraline HCl 25 MG TABLET 25 MG PO DAILY anxiety/OCD #30 TAB Prescribed by Anshul Blake MD on 06/11/17 Last Taken: 08/04/17 0800 Past History Past Medical History Neurological: NONE EENT: cataracts Cardiovascular: hypertension, hyperlipidemia Respiratory: NONE Gastrointestinal: CHRONIC CONSTIPATION Hepatic: NONE Renal: NONE Musculoskeletal: chronic back pain, osteoarthritis, spinal stenosis, STIMULATOR IN BACK Psychiatric: opioid dependence, substance abuse, on methadone Endocrine: diabetes, hypothyroidism Blood Disorders: NONE Cancer(s): thyroid cancer JEWELRY ENAMELER/Reproductive: NONE Past Surgical History Surgical History: appendectomy, cholecystectomy, thyroidectomy(2007) /Family History Place/Country of Origin: [place], [place] Childhood Family Constellation: 3 brothers, mother and father Primary Childhood Caretakers: father, mother Family Life During Childhood: "Great" DCF Involvement? No Relationship w/Mother: "Great" Relationship w/Father: " when patient was 18 years old." Any Sibling(s)? Yes Sibling's Gender(s)/Age(s): male Sibling 1:, male Sibling 2:, male Sibling 3: Relationship w/Sibling(s): Great with two siblings. One brother . Relationship w/Friends: Patient reports he has friends but has been isolating from them recently. Family Psych/Sub Abuse/Add Hx: N/A Abuse/Trauma History Trauma History/Current Trauma: Denies Legal History Legal Guardian/Address/Phone: None Have you ever been arrested No Number of Arrests: 0 Hx of Juvenile Legal Charges? No Hx of Adult Legal Charges? No Civil Proceedings: N/A Domestic Relations Court: None Child Protective Serv Involvmnt None Psychosocial History Primary Support System: Strengths/Capabilities: Supportive , Desire to feel better Treatment-seeking, medication management Physical Limitations (Interventions): Chronic back pain Last Physical: Unclear History of Seizures? No History of Blackouts? No ADL Limitations: none [place]/Social/Peer Relations Patient reports he has friends, but has been isolating from them. Meaningful Activities: travelling to watch basketball games and other sporting events, sports Childhood Gnosticist: Confucianist Current Anabaptism Affiliation: Confucianist Is Spirituality Important to You? "Yes" Patient's Ethnicity: Ivorian Cultural/Ethnic Issues: None Are There Developmental Issues? No Milestones Achieved: fine motor, gross motor Psychiatric Treatment History Psych Treatment Inpatient Treatment Yes Outpatient Treatment Yes Location of Treatment [facility] inpatient, [facility], OPS Dates of Treatment june 2017 in [facility] and currently in Outpatient Response to Treatment Completed and currently attending Treatment of Prior Episodes: [facility] Diagnosis: F32.9 - Major depressive disorder, single episode, unspecified, F11.21 - Opioid dependence in remission (moderate use disorder) on agonist therapy (methadone); medical - lumbar radiculopathy, acquired hypothyroidism, diabetes mellitus, mixed hyperlipidemia, hypertension, epigastric pain Psychodynamic Issues: primary strain, limited social, financial Risk Factors: age (under 24/over 65), high anxiety/distress, substance abuse, isolate/no social support, male Substance Use/Abuse History Drug Use/Abuse:Min 12 mo hx Substance Used/Abused Prescribed Opiates (methadone) First Use 2015 Last Used today How much used/taken 88 mg How often daily For how long 2 years Route of use oral Have Had Periods of Sobriety? Yes (reports being sober [id number]) Relapse History? No Have You Ever Attended AA? Yes Do You Attend AA Currently? Yes Do You Have a Sponsor? 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 of Jobs in Last 5 Years: 01 Attendance: n/a Performance: Good Comments: Patient is retired and receives SSI. History Have You Been in The ? No If Yes, Explain: N/A Type of Discharge: N/A Date of Discharge: N/A Current Mental Status Mental Status Orientation: Person, Place, Situation Affect: Appropriate, WNL Speech: WNL Neuro-vegetative: Appetite Decreased, Energy Decreased, Helpless, Loss of Interest, Sleep Disturbance Appearance Appearance- Dress/Hygiene: Patient met in an office. He was wearing scrub bottoms and a shirt. Good hygeine. Behaviors Thought Process: WNL Thought Content: WNL Memory: WNL Insight: Fair SI/HI Risk Assessment Past Suicidal Ideation/Attempts Yes Current Suicidal Ideation/Att No Past Homicidal Ideation/Att: No Current Homicidal Ideation/Attempts No Degree of Intent: Thoughts/No Intent Danger To: Self Gravely Disabled: Lack of Insight Lethality Ratin - Conclusion and Recommendations for treatment - and discharge planning Summary: The patient presented frustrated because he had to meet with several people today. He mentioned being isolative not seeing friends. The discharge plan would be to seek outpatient services and live at home with his . He is motivated to receive treatment.
[2017-08-06 15:41] VITALS: BP 96/63
--- NOTE | 2017-08-06 17:28 | SOCIAL WORKER PROG NOTE PSYCH ---
Social Work Progress Note Progress Note This publicity writer met with patient. He discussed events leading to this admission, specifcally that he went to ED due to discontinuing his Zoloft and Welbutrin. Patient stated that upon discontinuing these medications he began experiencing "skin burning and nerves." Patient denied SI/HI/AH/VH. He hopes to have his medications "re-examined" and would like to return to OPS with Dr. Jenkins. He does not want to attend IOP. Patient stated that he has not experienced a bowel movement in 4 days and will discuss this furhter with Dr. Blake. Patient stated that he slept well last night. He is currently prescribed Methadone "for pain" due to "crushed discs in my spine." He stated that he attends 12 Step Meetings and has not used (alcohol) in 30 years. Patient is agreeable to a family meeting with his . We call her, Alee Roach ([phone]) and scheduled a meeting for 1pm on 08/07/17.
[2017-08-06 19:22] VITALS: BP 116/65
[2017-08-07 08:02] VITALS: BP 131/52
--- NOTE | 2017-08-07 12:24 | CP SOUTH PROGRESS NOTE PSYCH ---
Psych (Inpt) Progress Note Progress Note I met with the patient this morning. I later on met with the patient his and social security benefits interviewer Nicci rader LCSW Vital Signs Date Time Temp Pulse B/P 08/07 0807 131/52 08/07 0802 97.6 81 131/52 08/06 1922 96.8 71 116/65 Mental Status Examination: The patient reported that he is feeling tired and lethargic most likely due to the low blood pressure reading. The patient and oriented to time, place, and person. He uses a walker to ambulate. Today, he was calm and cooperative and not anxious. Normal psychomotor activity, No abnormal behaviors. Normal speech, constricted affect. Anxious and depressed. Denied thinking of suicide. Denied thinking of homicide. Denied hallucinations, denied feeling paranoid, there were no delusions during the interview. He is coherent, there is no thought disorder, however he is obsessive and ruminative. Partial insight, Impaired judgment. Appears to process information appropriately No evidence of short-term memory deficits during the interview. Assessment: 72-year-old white male with history of depression and severe anxiety and severe OCD presents back to the hospital thinking that he is having side effects from the medications and accusing the medications of "fucking me up". The patient has been obsessed with serotonin syndrome for several months now because allegedly he was told he had a serotonin syndrome at one point most likely because he took Zoloft with Cymbalta at the same time. 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 Treatment Plan: Decrease Losartan Potassium to 25 mg every day DC lactulose DC melatonin DC Senokot Continue Zoloft 50 mg daily Continue Klonopin 1 mg at bedtime Continue methadone 85 mg every day Continue all other medications unchanged Opioid use disorder, on maintenance minute medication Other specified personality disorder, 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
[2017-08-07 12:27] VITALS: BP 133/67
--- NOTE | 2017-08-07 13:11 | PN- Diabetes ---
Assessment/Plan Diabetes Assessment: The patient feels about the same. He feels very anxious and out of sorts. He states he is not overeating. He is on 20 units of Levemir twice a day along with sliding scale NovoLog. His sugars yesterday were in fairly good control. The patient has a history of thyroid cancer. He is status post thyroid surgery and is on levothyroxine 224 mcg daily. The patient's TSH is 0.96 with a free T4 of 1.93 Plan: Suggest continue the same insulin. He is going to continue on the same dose of thyroid hormone for now. Subjective Subjective: Feels anxious Review of Systems Constitutional: Denies: chills, fever. Cardiovascular: Denies: chest pain. Respiratory: Denies: short of breath. Gastrointestinal: Reports: nausea, vomiting. Objective Last 24 Hrs of Vital Signs/I&O Vital Signs Date Time Temp Pulse Resp B/P B/P Pulse O2 O2 Flow FiO2 Mean Ox Delivery Rate 08/07 1227 79 133/67 08/07 0807 131/52 08/07 0802 97.6 81 131/52 08/06 1922 96.8 71 116/65 08/06 1541 76 96/63 Laboratory Tests 08/06 08/05 0921 1355 Chemistry Sodium (137 - 145 mmol/L) 136 L Potassium (3.5 - 5.1 mmol/L) 4.2 Chloride (98 - 107 mmol/L) 97 L Carbon Dioxide (22 - 30 mmol/L) 26 Anion Gap (5 - 16) 13 BUN (9 - 20 mg/dL) 23 H Creatinine (0.7 - 1.2 mg/dL) 1.2 Estimated GFR (>60 ml/min) 60 BUN/Creatinine Ratio (7 - 25 %) 19.2 Glucose (65 - 99 mg/dL) 259 H Calcium (8.4 - 10.2 mg/dL) 9.1 Total Bilirubin (0.2 - 1.3 mg/dL) 0.6 AST (17 - 59 U/L) 26 ALT (21 - 72 U/L) 37 Alkaline Phosphatase (< 127 U/L) 99 Total Protein (6.3 - 8.2 g/dL) 7.0 Albumin (3.5 - 5.0 g/dL) 3.9 Globulin (1.9 - 4.2 gm/dL) 3.1 Albumin/Globulin Ratio (1.1 - 2.2 %) 1.3 TSH (0.270 - 4.200 uIU/mL) 0.964 Free T4 (0.78 - 2.44 ng/dL) 1.93 Hematology CBC w Diff NO MAN DIFF REQ WBC (4.8 - 10.8 /CUMM) 9.6 RBC (4.70 - 6.10 /CUMM) 4.41 L Hgb (14.0 - 18.0 G/DL) 13.6 L Hct (42 - 52 %) 39.8 L MCV (80.0 - 94.0 FL) 90.3 MCH (27.0 - 31.0 PG) 30.9 MCHC (33.0 - 37.0 G/DL) 34.3 RDW (11.5 - 14.5 %) 13.0 Plt Count (130 - 400 /CUMM) 262 MPV (7.4 - 10.4 FL) 7.9 Gran % (42.2 - 75.2 %) 76.9 H Lymphocytes % (20.5 - 51.1 %) 15.5 L Monocytes % (1.7 - 9.3 %) 6.8 Eosinophils % (0 - 5 %) 0.5 Basophils % (0.0 - 2.0 %) 0.3 Absolute Granulocytes (1.4 - 6.5 /CUMM) 7.4 H Absolute Lymphocytes (1.2 - 3.4 /CUMM) 1.5 Absolute Monocytes (0.10 - 0.60 /CUMM) 0.7 H Absolute Eosinophils (0.0 - 0.7 /CUMM) 0 Absolute Basophils (0.0 - 0.2 /CUMM) 0 Toxicology Serum Alcohol (<10 MG/DL) < 10.0 08/05 1338 Toxicology Urine Opiates Screen (>2000 NG/ML) < 100 Methadone Screen (>300 NG/ML) > 735 H Barbiturate Screen (>200 NG/ML) < 60 Ur Phencyclidine Scrn (>25 NG/ML) 8.10 Amphetamines Screen (>1000 NG/ML) 301 U Benzodiazepines Scrn (>200 NG/ML) < 85 Urine Cocaine Screen (>300 NG/ML) < 50 Urine Cannabis Screen (>50 NG/ML) < 5.00 Urines Urine Color (YEL,AMB,STR) YEL Urine Clarity (CLEAR) CLEAR Urine pH (5.0 - 8.0) 6.0 Ur Specific Powell (1.001 - 1.035) 1.025 Urine Protein (NEG,<30 MG/DL) 30 H Urine Ketones (NEG) TRACE H Urine Nitrite (NEG) NEG Urine Bilirubin (NEG) NEG Urine Urobilinogen (0.1 - 1.0 EU/dl) 0.2 Ur Leukocyte Esterase (NEG) NEG Ur Microscopic SEDIMENT EXAMINED Urine RBC (0 - 5 /HPF) RARE Ur Epithelial Cells (NONE,FEW) RARE Urine Hemoglobin (NEG) NEG Urine Glucose (N MG/DL) NEG Vital Signs Date Time Temp Pulse Resp B/P B/P Pulse O2 O2 Flow FiO2 Mean Ox Delivery Rate 08/07 1227 79 133/67 08/07 0807 131/52 08/07 0802 97.6 81 131/52 08/06 1922 96.8 71 116/65 08/06 1541 76 96/63 Physical Exam General Appearance: alert, awake, anxious Head: normal appearance Respiratory: normal breath sounds Cardiovascular: regular rate/rhythm Abdomen: normal bowel sounds Current Medications: Current Medications Sig/Radha Start time Last Medication Dose Route Stop Time Status Admin Acetaminophen 500 MG ONCE ONE 08/06 1900 DC 08/06 PO 08/06 1901 1914 Alprazolam 0.5 MG ONCE ONE 08/06 1430 DC 08/06 PO 08/06 1431 1523 Aspirin Buffered 81 MG DAILY 08/05 1618 AC 08/07 PO 0807 Chlorthalidone 25 MG DAILY 08/06 09 AC 08/07 PO 0807 Clonazepam 1 MG 2000 08/06 1999 AC 08/06 PO 08/12 195 2033 Diltiazem HCl 240 MG DAILY 08/06 0900 AC 08/07 PO 0807 Docusate Sodium 100 MG BID 08/07 09 AC 08/07 PO 1118 Insulin Aspart 0 TIDAC 08/05 1700 AC 08/07 SC 0848 Insulin Detemir 20 UNITS BID 08/06 09 AC 08/07 SC 0813 Lactulose 20 GM Q12P PRN 08/05 1630 DC PO Levothyroxine Sodium 0.224 MG DAILY AC 08/06 0700 AC 08/07 PO 0704 Losartan Potassium 25 MG DAILY 08/08 0900 AC PO Losartan Potassium 50 MG DAILY 08/06 0900 DC 08/07 PO 0807 Melatonin 5 MG 08/05 DC 08/06 PO 8 Methadone HCl 80 MG .STK-MED ONE 08/06 1342 DC PO 08/06 1343 Methadone HCl 85 MG 0808/06 0800 AC 08/07 PO 0811 Non-Formulary 0 SEE ADMIN CRITERIA 08/05 1645 UNVr Medication ANY Omeprazole 40 MG DAILY AC 08/06 0700 AC 08/07 PO 0704 Polyethylene Glycol 17 GM DAILY 08/06 0900 AC 08/07 PO 0847 Senna 187 MG QPM 08/07 2100 CAN PO Sertraline HCl 50 MG DAILY 08/06 0900 AC 08/07 PO 0807
[2017-08-07 15:59] VITALS: BP 92/58
--- NOTE | 2017-08-07 17:38 | SOCIAL WORKER PROG NOTE PSYCH ---
Social Work Progress Note Progress Note Dr. Blake and this ad writer met with patient and his for a family meeting. Dr. Blake discussed medication and treatment questions and concerns. Discharge plans were also reviewed. An individual therapist and psychiatrist will be sought. Patient stated that he has a primary care provider (Dr. Goldstein) whom he will continue seeing for primary care. The appointment with Dr. Jenkins will be cancelled. Patient stated that he utilizes [facility] for Methadone treatment. Patient's requested that she is contacted to review final discharge plans and that their daughter/son can provide transportation home as she will be out of town (08/08/17-08/15/17). Patient's , Alee: [phone] Patient's daughter, Queenie Roach: [phone] Patient's son, JR Roach: [phone]
[2017-08-07 19:42] VITALS: BP 113/74
[2017-08-08 07:53] VITALS: BP 116/64
[2017-08-08 12:32] VITALS: BP 125/70
--- NOTE | 2017-08-08 13:51 | PN- Diabetes ---
Assessment/Plan Diabetes Assessment: 72-year-old male was admitted to because he was very agitated. He had suicidal thoughts. The patient has a past history of depression, anxiety, chronic pain. For DM, he was on 42 units of 70/30 NovoLog mix twice a day. In hospital, he was put on Levemir 20 units twice a day, Novlog coverage before meals and Novolog coverage at bedtime. His FSGs were 211, 154, 203, 284 and 193. In addition, patient has had hx of thyroid cancer s/p thyroidectomy. He is on Levothyroxine 224 mcg daily. Plan: continue the current insulin regimen for now; monitor FSGs. will follow. Subjective Subjective: He feels okay. Objective Last 24 Hrs of Vital Signs/I&O Vital Signs Date Time Temp Pulse Resp B/P B/P Pulse O2 O2 Flow FiO2 Mean Ox Delivery Rate 08/08 1232 100 125/70 08/08 0753 97.5 94 116/64 08/08 0752 97.6 78 18 113/74 08/07 1942 97.6 78 113/74 08/07 1559 74 92/58
[2017-08-08 15:56] VITALS: BP 110/61
[2017-08-08 20:02] VITALS: BP 129/69
--- NOTE | 2017-08-09 07:45 | CP SOUTH PROGRESS NOTE PSYCH ---
Psych (Inpt) Progress Note Progress Note Chief Complaint Discussed overnight events with RN and staff. As per RN report, although the patient appeared to be sleeping throughout the night, No PRNs/restrains required in the last 24hrs. I saw the patient this morning with the treatment team. he reported feeling better. he denies suicidal/homicidal thoughts/intent/plans at present. he has adequate appetite and sleep. he is compliant to medications, no side effects reported and none in evidence. He reported having headaches and requesting Tylenol. Vitals reviewed Vital Signs Result Date Time B/P 129/69 08/08 2001 Temp 97.9 08/08 2001 Pulse 80 08/08 2001 Resp 18 08/08 0752 Pulse Ox 97 08/05 1252 O2 Delivery Room Air 08/05 1252 O2 Flow Rate Room Air 08/05 1252 Mental Status Examination Consciousness: Awake, alert Orientation: A&O x3, oriented to person, place, year, not to situation Appearance: appears stated age, dressed in casual attire, with fair hygiene Behavior: calm and cooperative Attitude: open and engaged Eye Contact: appropriate Speech: articulate, clear and coherent Mood: better Affect: mood-congruent, constricted to depressed with minimal emotional reactivity Thought Process: organized with some thought blocking Thought Content: less anxious, obsessed about serotonin syndrome despite reassurance that clinically he has no signs or symptoms of SS, denies suicidal/ homicidal ideations at the time of the interview, no delusions elicited/ verbalized at present Perceptions: denies audiovisual hallucinations Attention: attentive to interview Memory: grossly intact Insight: fair Judgment: limited No psychomotor abnormalities noted Motor: no abnormal movements, uses a walker to ambulate Neuro: grossly intact Independent in ADL's and iADL's Labs Reviewed as documented in chart. Allergy Reviewed as documented in chart. Medications Reviewed as documented in chart. Current Medications Sig/Radha Start time Last Medication Dose Route Stop Time Status Admin Acetaminophen 650 MG Q6P PRN 08/08 1545 AC 08/08 PO 1808 Aspirin Buffered 81 MG DAILY 08/05 1618 AC 08/08 PO 075 Chlorthalidone 25 MG DAILY 08/06 899 AC 08/08 PO 0753 Clonazepam 1 MG 2000 08/06 1999 AC 08/08 PO 08/12 Diltiazem HCl 240 MG DAILY 08/06 09 AC 08/08 PO 0752 Docusate Sodium 100 MG BID 08/07 09 AC 08/08 PO 2133 Insulin Aspart 0 TIDAC 08/05 1700 AC 08/08 SC 170 Insulin Detemir 20 UNITS BID 08/06 09 AC 08/08 SC 213 Levothyroxine Sodium 0.224 MG DAILY AC 08/06 07 AC 08/09 PO 0717 Losartan Potassium 25 MG DAILY 08/08 09 AC 08/08 PO 075 Methadone HCl 5 MG .STK-MED ONE 08/08 075 DC PO 08/08 075 Methadone HCl 85 MG 08/06 08 AC 08/08 PO 0755 Omeprazole 40 MG DAILY AC 08/06 07 AC 08/09 PO 0717 Polyethylene Glycol 17 GM DAILY 08/06 09 AC 08/08 PO 075 Sertraline HCl 50 MG DAILY 08/06 09 AC 08/08 PO 0752 Assessment Lino is a 72-year-old white male with history of depression, severe anxiety and OCD who presented with fears of serotonin syndrome. 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
[2017-08-09 08:02] VITALS: BP 132/63
[2017-08-09 11:47] VITALS: BP 117/74
--- NOTE | 2017-08-09 12:18 | PN- Diabetes ---
Assessment/Plan Diabetes Assessment: 72-year-old male was admitted to because he was very agitated. He had suicidal thoughts. The patient has a past history of depression, anxiety, chronic pain. For DM, he was on 42 units of 70/30 NovoLog mix twice a day. In hospital, he was put on Levemir 20 units twice a day, Novlog coverage before meals and Novolog coverage at bedtime. His FSGs were 284, 193, 160, 282 and 289. As per patient, his diet hasn't been the great as there are lots of snack and food available in the [place]. In addition, patient has had hx of thyroid cancer s/p thyroidectomy. He is on Levothyroxine 224 mcg daily. Plan: 1. diet control; 2. increase Levemir to 25 units twice a day 3. continue the curent Novolog coverage before meals and Novolog coverage at bedtime. 4. monitor FSGs. will follow. Subjective Subjective: He feels okay. Objective Last 24 Hrs of Vital Signs/I&O Vital Signs Date Time Temp Pulse Resp B/P B/P Pulse O2 O2 Flow FiO2 Mean Ox Delivery Rate 08/09 1147 76 117/74 08/09 0809 132/63 08/09 0802 96.5 76 132/63 08/08 2001 97.9 80 129/69 08/08 1556 76 110/61 08/08 1232 100 125/70
[2017-08-09 15:56] VITALS: BP 103/56
--- NOTE | 2017-08-09 18:05 | CP SOUTH PROGRESS NOTE PSYCH ---
Psych (Inpt) Progress Note Progress Note Chief Complaint Discussed overnight events with RN and staff. No PRNs/restrains required in the last 24hrs. As per RN report, although the patient appeared to be sleeping throughout the night, got up once to use the bathroom. I saw the patient this morning with the treatment team. He reported feeling sleepish, I do not think it is because of the methadone, I have been taking this for years he reported adequate sleep and fair appetite. He stated that my is obsessed with my medications, I have been doing much better since I stopped taking the Wellbutrin otherwise he has no somatic complaints, denies suicidal/ homicidal ideations. He is visible in the unit interacting with peers. Vitals reviewed Vital Signs Result Date Time B/P 103/56 08/09 1556 Pulse 74 08/09 1556 Temp 96.5 08/09 0802 Resp 18 08/08 0752 Pulse Ox 97 08/05 1252 O2 Delivery Room Air 08/05 1252 O2 Flow Rate Room Air 08/05 1252 Mental Status Examination Consciousness: Awake, alert Orientation: A&O x4, oriented to person, place, year, situation Appearance: appears stated age, dressed in casual attire, with fair hygiene Behavior: calm and cooperative Attitude: open and engaged Eye Contact: appropriate Speech: articulate, clear and coherent Mood: good Affect: mood-congruent, constricted to depressed with minimal emotional reactivity Thought Process: organized with some thought blocking Thought Content: denies being anxious, denies suicidal/homicidal ideations at the time of the interview, no delusions elicited/verbalized at present Perceptions: denies audiovisual hallucinations Attention: attentive to interview Memory: grossly intact Insight: fair Judgment: fair No psychomotor abnormalities noted Motor: no abnormal movements, uses a walker to ambulate Neuro: grossly intact Independent in ADL's and iADL's Labs Reviewed as documented in chart. Allergy Reviewed as documented in chart. Medications Reviewed as documented in chart. Current Medications Sig/Radha Start time Last Medication Dose Route Stop Time Status Admin Acetaminophen 650 MG Q6P PRN 08/08 1545 AC 08/09 PO 1502 Aspirin Buffered 81 MG DAILY 08/05 1618 AC 08/09 PO 0809 Chlorthalidone 25 MG DAILY 08/06 09 AC 08/09 PO 08 Clonazepam 1 MG 08/05 AC 08/08 PO 08/12 Diltiazem HCl 240 MG DAILY 08/06 899 AC 08/09 PO 0809 Docusate Sodium 100 MG BID 08/07 09 AC 08/09 PO 0809 Insulin Aspart 0 TIDAC 08/05 1700 AC 08/09 SC 1658 Insulin Detemir 25 UNITS BID 08/09 2100 AC SC Insulin Detemir 20 UNITS BID 08/06 09 DC 08/09 SC 0845 Levothyroxine Sodium 0.224 MG DAILY AC 08/06 699 AC 08/09 PO 0717 Losartan Potassium 25 MG DAILY 08/08 09 AC 08/09 PO 0809 Methadone HCl 5 MG .STK-MED ONE 08/09 08 DC PO 08/09 08 Methadone HCl 85 MG 08/06 AC 08/09 PO 0814 Omeprazole 40 MG DAILY AC 08/06 699 AC 08/09 PO 0717 Polyethylene Glycol 17 GM DAILY 08/06 09 AC 08/09 PO 0809 Sertraline HCl 50 MG DAILY 08/06 899 AC 08/09 PO 0809 Assessment Lino is a 72-year-old white male with history of depression, severe anxiety and OCD who presented with fears of serotonin syndrome. He appears to be stable. 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
[2017-08-09 20:11] VITALS: BP 148/72
[2017-08-10 07:38] VITALS: BP 130/57
--- NOTE | 2017-08-10 08:38 | PN- Diabetes ---
Assessment/Plan Diabetes Assessment: 72-year-old male was admitted to because he was very agitated. He had suicidal thoughts. The patient has a past history of depression, anxiety, chronic pain. For DM, he was on 42 units of 70/30 NovoLog mix twice a day. In hospital, Levemir was increased to 25 units twice a day, He is on Novlog coverage before meals ( FSG between 80 and 150, 8 units; FSG between 151-200, 10 units, etc) and Novolog coverage at bedtime. His FSGs were 266, 113, 177 and 286. As per patient, he still had snacks last night. In addition, patient has had hx of thyroid cancer s/p thyroidectomy. He is on Levothyroxine 224 mcg daily. Plan: 1. diet control; 2. increase Levemir to 25 units twice a day 3. continue the curent Novolog coverage before meals and Novolog coverage at bedtime. 4. monitor FSGs. will follow. Plan: 1. diet control; 2. continue the current insulin regimen for now; 3. monitor FSGs. will follow. Subjective Subjective: He feels well. Objective Last 24 Hrs of Vital Signs/I&O Vital Signs Date Time Temp Pulse Resp B/P B/P Pulse O2 O2 Flow FiO2 Mean Ox Delivery Rate 08/10 0808 69 130/57 08/10 0738 96.5 69 130/57 08/09 2010 97.4 73 148/72 08/09 1556 74 103/56 08/09 1147 76 117/74
[2017-08-10 11:59] VITALS: BP 125/63
--- NOTE | 2017-08-10 13:08 | CP SOUTH PROGRESS NOTE PSYCH ---
Psych (Inpt) Progress Note Progress Note 08/10/2017 Mental Status Examination: Pt. continues to report feeling tired /lethargic patient is alert and oriented to time, place, and person. He uses a walker to ambulate. Today, he was calm, cooperative, less anxious, normal psychomotor activity, no abnormal behaviors, normal speech, constricted affect, less depressed, denied thinking of suicide, denied thinking of homicide, denied hallucinations, denied feeling paranoid, no delusions during the interview, coherent, there is no thought disorder, however he is obsessive and ruminative, partial insight, impaired judgment, appears to process information appropriately , no evidence of short-term memory deficits during the interview. Assessment: 72-year-old white male with history of depression and severe anxiety and severe OCD presents back to the hospital thinking that he is having side effects from the medications and accusing the medications of "fucking me up". The patient has been obsessed with serotonin syndrome for several months now because allegedly he was told he had a serotonin syndrome at one point most likely because he took Zoloft with Cymbalta at the same time. 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
[2017-08-10 15:24] VITALS: BP 143/61
--- NOTE | 2017-08-10 17:45 | SOCIAL WORKER PROG NOTE PSYCH ---
Social Work Progress Note Progress Note This medical technical writer met with patient. He described his mood as "I woke up lousy" which he attributes to being very tired. However, patient reported overall improvement in mood. He denied SI/HI/AH/VH. Patient stated that he will schedule an appointment with his primary care provider. He has been using a walker on this unit and stated that he has both a walker and a can at home. Discharge plans were also further explored, and patient was agreeable to a referral to Dr. Ramsey and Dr. Celestino De León. He was presented with a list of individual therapist and requested a referral to [facility]. Patient stated that he does not need any additional appointments or referrals made at this time. This medical technical writer left a vm for Dr. Ramsey at 1:09pm today, but did not receive a call back. This medical technical writer also spoke with the office of Dr. Mederos. Clinical was faxed ([phone]) at their request (history and physical, diagnostic assessment, psychiatric admission note and medication list) at 2:31pm today. This medical technical writer was informed by his office that they would review the clinical and will be in contact tomorrow morning. This medical technical writer spoke with Eric Alexander at [facility]. This medical technical writer provided clinical information and an individual therapy appointment has been scheduled for 08/18/17 at 2pm with Tung Jones LCSW. Per patient's interest, Eric was also informed that he is interested in outpatient groups (not IOP). 10:15am This medical technical writer spoke with Savannah with [facility] ([phone]) to obtain an inpatient auth as the patient's [employer] insurance became active yesterday. Savannah provided the pre-cert number [id number] and instructed this medical technical writer to call [phone] to provide clinical and obtain the auth. 3:15pm This medical technical writer spoke with John in interest of obtaining the auth. John stated that [employer] will not cover the inpatient admission as the patient had been admitted prior to the insurance becoming active. He stated that the patient's previous insurance will cover this admission until discharge. John provided the following number should additional contact with [facility] need to be made: [phone] (John' s ext. [phone]). Patient was informed of the insurance conversation. Patient will also contact his children regarding transportation for a potential discharge tomorrow. 5:22pm This medical technical writer spoke with patient's , Alee, by phone ([phone]) in response to her vm. She was informed of the referrals that have been made thus far as well as the insurance. Alee was also informed that the patient will call his son and/or daughter this evening regarding transportation for a possible d/c tomorrow.
[2017-08-10 19:45] VITALS: BP 149/81
--- NOTE | 2017-08-11 07:58 | CP SOUTH PROGRESS NOTE PSYCH ---
Psych (Inpt) Progress Note Progress Note Vital Signs Date Time Temp Pulse B/P 08/11 0808 97.1 79 143/72 08/10 194 98.3 73 149/81 Mental Status Examination: Pt. continues to report feeling tired /lethargic. He shows constricted affect, he reports feeling slightly less depressed, denied wishing and denied thinking of suicide. He is alert and oriented to time, place, and person. He is calm, cooperative, and slightly less anxious. He exhibits normal psychomotor activity, no abnormal behaviors, and normal speech. denied thinking of homicide, denied hallucinations, denied feeling paranoid, no delusions during the interview, coherent, there is no thought disorder, less obsessive/ruminative, processes information appropriately, no evidence of short-term memory deficits during the interview. Assessment Update: Lino Roach is a 72-year-old white male who was admitted to the hospital thinking that he is having side effects from the medications and accusing the medications of "fucking me up". The patient has been obsessed with serotonin syndrome for several months now because allegedly he was told he had a serotonin syndrome at one point most likely because he took Zoloft with Cymbalta at the same time. Since his admission on 08/05/2017, the patient has shown significant reduction in his anxiety level, mild improvement in his mood, and he has been all along denying thoughts of suicide. In my clinical opinion he is ready for discharge, and he does feel ready for discharge. There are no discharge barriers as far as risk to self or risk to others at this point; and there is no evidence of grave impairment in his judgment. 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
[2017-08-11 08:08] VITALS: BP 143/72
[2017-08-11] MEDS ORDERED: KLONOPIN1 M1 PO (10:42)
[2017-08-11] MEDS ORDERED: MIRALAX119 GM PO (10:42)
--- NOTE | 2017-08-11 10:59 | Patient Discharge Instructions ---
Psych Discharge Inst General Discharge Information Reason for Admission: feeling sweaty, restless, having poor sleep, poor concentration, going to the bathroom constantly to urinate but difficulties actually going and reports being constipated. Psy Discharge Primary Diag+ MDD OCD Psy Discharge Secondary Diag+ Opioid Use Disorder Summary Tests/Major Procedures Lab Anion Gap 11 06/05/17 1321 BUN 29 mg/dL H 06/05/17 1321 BUN/Creatinine Ratio 18.1 % 06/05/17 1321 Carbon Dioxide 30 mmol/L 06/05/17 1321 Chloride 94 mmol/L L 06/05/17 1321 Creatinine 1.6 mg/dL H 06/05/17 1321 Estimated GFR 43 ml/min L 06/05/17 1321 Glucose 250 mg/dL H 06/05/17 1321 Hemoglobin A1c 9.0 % H 06/05/17 1321 Potassium 4.7 mmol/L 06/05/17 1321 Sodium 135 mmol/L L 06/05/17 1321 Free T4 1.93 ng/dL 08/06/17 0921 TSH 0.964 uIU/mL 08/06/17 0921 Hct 39.8 % L 08/05/17 1355 Hgb 13.6 G/DL L 08/05/17 1355 Studies Pending at DC: None Patient Instructions Contact Information Your Psychiatrist on [facility] was Anshul Blake MD * If you are experiencing an emergency related to this hospitalization, please call [phone] to contact the treating psychiatrist or the psychiatrist-on- call. * To Request a copy of your medical records, please contact the Medical Records Department at [phone]. * To request results of studies pending at the time of discharge, please call [phone]. * Continue your Medications until directed to stop by your Healthcare provider. General Medication Information Please continue to take your new medications and your continued home medications , unless otherwise indicated on your discharge medication list, or unless directed by your MD or FUNCTIONAL SUPPORT ANALYST to stop them. Special Instructions Diet Diabetic Activity As Tolerated - Tobacco Use Treatment Offered Post DC Medications Offered: Not Applicable Post DC Tobacco Treatment Plan: Not Applicable - EtOH/Drug Use D/O Treatment Offered Post DC Medications Offered: Script Given-See Med List Post DC EtOH/SubAbuse [place] Plan: Other SubAbuse/Dual Pgm Metabolic Screening Not Applicable, patient not on a neuroleptic. Advance Directives Does the Patient have Medical Advance Directives Yes/Copy not provided Does Pt have Psychiatric Advance Directives? No/Refused further info Does Patient have a Designated Surrogate Decision Maker: No Information About Psychiatric Advance Directives Provided? Refused Discharge Plan Post Hospital Treatment Plan: [facility] and Private Psychiatrist
--- NOTE | 2017-08-11 11:18 | PN- Diabetes ---
See Addendum Assessment/Plan Diabetes Assessment: 72-year-old male was admitted to because he was very agitated. He had suicidal thoughts. The patient has a past history of depression, anxiety, chronic pain. For DM, he was on 42 units of 70/30 NovoLog mix twice a day. In hospital, Levemir was increased to 25 units twice a day, He is on Novlog coverage before meals ( FSG between 80 and 150, 8 units; FSG between 151-200, 10 units, etc) and Novolog coverage at bedtime. His FSGs were 286, 223, 119, 163 and 217. In addition, patient has had hx of thyroid cancer s/p thyroidectomy. He is on Levothyroxine 224 mcg daily. He is going home today. Plan: 1. continue the current insulin regimen when he is in the hospital; 2. discharge plan for DM: --- Novolog 70/30 mix 42 units twice a day--before breakfast and before dinner; ---FSGs x 4 times a day ---f/u with Dr. Felder after discharge. Subjective Subjective: He feels well. Objective Last 24 Hrs of Vital Signs/I&O Vital Signs Date Time Temp Pulse Resp B/P B/P Pulse O2 O2 Flow FiO2 Mean Ox Delivery Rate 08/11 0808 97.1 79 143/72 08/10 1945 98.3 73 149/81 08/10 1524 73 143/61 07 1159 71 125/63
[2017-08-11] MEDS ORDERED: METHADONE HCL10 M1 PO (11:29)
[2017-08-11] MEDS ORDERED: SERTRALINE HCL25 MG PO (11:31)
[2017-08-11] MEDS ORDERED: CHLORTHALIDONE25 M1 PO (11:31)
[2017-08-11] MEDS ORDERED: NOVOLOG MI100 UNIT/2 SC (11:35)
[2017-08-11] MEDS ORDERED: SENNA8.6 M3 PO (11:38)
--- NOTE | 2017-08-11 11:55 | DISCHARGE SUMMARY REPORT-PSYCH ---
Visit Information Visit Dates/Diagnosis' Admission Date: 08/05/17 Discharge Date: 08/11/17 Reason for Admission: feeling sweaty, restless, having poor sleep, poor concentration, going to the bathroom constantly to urinate but difficulties actually going and reports being constipated. Psy Discharge Primary Diag: MDD OCD Psy Discharge Secondary Diag: Opioid Use Disorder Hospital Course Significant Lab Findings: Lab Free T4 1.93 ng/dL 08/06/17 0921 TSH 0.964 uIU/mL 08/06/17 0921 Hct 39.8 % L 08/05/17 1355 Hgb 13.6 G/DL L 08/05/17 1355 Course Complications: The patient did not have any complications while he was on the inpatient psychiatric unit. Consultations: The patient had a history and physical examination by Dr. Kwabena Baker MD, on 08/06/17. MD Statement: I have seen and personally examined LINO CARRERA and documented this H&P. The patient is a 72 year old M who presented with a patient stated chief complaint of depression and suicidal ideation. Source of Information: patient, old records Exam Limitations: no limitations History of Present Illness: The patient is a 72 yo male with h/o HTN, HL, depression, anxiety, H/O thyroid ca/thyrodtmy, chronic back pain (h/o lumbar fractures and lumbar stimulator), DM2 (on insulin), h/o opioid dependence on Methadone, who presented with symptoms of worsening depression with suicidal ideation. He had discontinued his sertraline and bupropion on his own a couple of days prior to admission. He also c/o prostate symptoms (seen by Dr. Salinas) and had tried a medication that did not help his symptoms. His main complaint at the time of my exam is constipation. Allergies/Medications Allergies: Coded Allergies: Penicillins (Severe, ANAPHYLAXIS 04/10/15) Home Med list Aspirin (Ecotrin*) 81 MG TABLET.DR 1 TAB PO DAILY HEART/BLOOD (Reported) Azilsartan Med/Chlorthalidone (Edarbyclor 40-25 MG Tablet) 40 MG-25 MG TABLET 1 TAB PO DAILY HEART (Reported) Bupropion HCl (Wellbutrin XL) 150 MG TAB.ER.24H 150 MG PO 0800 depression Diltiazem HCl (Diltiazem 24HR ER) 240 MG CAP.ER.24H 1 CAP PO DAILY HEART/BP ( Reported) Insulin Aspart Protam & Aspart (Novolog Mix 70-30 Flexpen Syrn) 100 UNIT/ML (70- 30) INSULN.PEN 40 UNITS SC BID DM Levothyroxine Sodium (Synthroid) 112 MCG TABLET 2 TAB PO DAILY THYROID ( Reported) Methadone HCl 5 MG/5 ML SOLUTION 88 MG PO DAILY CHRONIC PAIN (Reported) Naldemedine Tosylate (Symproic) 0.2 MG TABLET 1 TAB PO DAILY UNKNOWN ( Reported) Pantoprazole Sodium 40 MG TABLET.DR 1 TAB PO DAILY GI (Reported) Polyethylene Glycol 3350 (Miralax) 17 GRAM/DOSE POWDER 17 GM PO DAILY constipation Sertraline HCl 25 MG TABLET 25 MG PO DAILY anxiety/OCD Medical History Neurological: NONE EENT: cataracts Cardiovascular: hypertension, hyperlipidemia Respiratory: NONE Gastrointestinal: CHRONIC CONSTIPATION Hepatic: NONE Renal: NONE Musculoskeletal: chronic back pain, osteoarthritis, spinal stenosis, STIMULATOR IN BACK Psychiatric: opioid dependence, substance abuse, on methadone Endocrine: diabetes, hypothyroidism Blood Disorders: NONE Cancer(s): NONE, thyroid cancer 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 Home Who Do You Live With? spouse Services at Home: None Primary Language: Senegalese Smoking Status: Never Smoked ETOH Use: denies use Illicit Drug Use: ON METHADONE X 2 YEARS Functional Ability ADLs Independent: dressing, eating, toileting, bathing. Ambulation: independent (was using walker at time of ex) IADLs Independent: shopping, housework, finances, food prep, telephone, transportation , medication admin. Review of Systems Constitutional: Denies: no symptoms. EENTM: Denies: no symptoms. Cardiovascular: Denies: no symptoms. Respiratory: Denies: no symptoms. GI: Reports: constipation. Genitourinary: Reports: frequency, hesitation, nocturia. Musculoskeletal: Reports: back pain (chronic). Skin: Denies: no symptoms. Neurological/Psychological: anxiety, depressed, emotional problems. Hematologic/Endocrine: Denies: no symptoms. Immunologic/Allergic: splenectomy. Denies: no symptoms. Exam & Diagnostic Data Vital Signs Date Time Temp Pulse Resp B/P B/P Pulse O2 O2 Flow FiO2 Mean Ox Delivery Rate 08/06 1922 96.8 71 116/65 08/06 1541 76 96/63 08/06 1213 79 102/70 08/06 0801 96.4 79 18 121/58 08/06 0756 96.4 79 121/58 Intake & Output 08/06 1600 08/06 0800 08/06 0000 Intake Total Output Total Balance Patient 237 lb Weight Physical Exam General Appearance Alert, Oriented X3, Cooperative (some back pain) Skin No Rashes, No Breakdown, No Significant Lesion HEENT Atraumatic, PERRLA, EOMI, Mucous Membr. moist/pink Neck Supple, No JVD, +2 Carotid Pulse wo Bruit, No LAD (S/P THYROIDECTOMY) Cardiovascular Regular Rate, Normal S1, Normal S2, No Murmurs Lungs Clear to Auscultation, Normal Air Movement Abdomen Normal Bowel Sounds, Soft, No Tenderness, No Hepatospenomegaly, No Masses Neurological Exam Findings: Normal Gait, Normal Speech, Strength at 5/5 X4 Ext, Normal Tone, Sensation Intact, Cranial Nerves 3-12 NL, Reflexes 2+ Cranial Nerves II through XII: INTACT Extremities No Clubbing, No Cyanosis, No Edema, Normal Pulses, No Tenderness/ Swelling Vascular Normal Pulses, Pulses Symmetrical Last 24 Hrs of Labs/Wero: Laboratory Tests 08/06/17 0921: TSH 0.964, Free T4 1.93 Assessment/Plan Assessment: Impression/Plan: #Depression/Suicidal Ideation- admitted to [facility]ry for evaluation. The patient stated he had stopped his anti-depressant meds (Sertraline/Bupropion ) prior to becoming more depressed. Plan: Admit to [facility]/Psychiatry. Care as per psychiatry. #DM2- sugars only fairly controlled. The patient has lost 40 lbs over recent months. Plan: Appreciate Endocrinology consult- Dr. Felder (done). Continue insulin as per Dr. Felder. #HTN- BP good. Plan: Continue Diltiazem. #Constipation- chronic. Plan: Will order bowel regimen. Colace,Senna, Miralax. #Hypothyroid- s/p thyroidectomy for thyroid ca. Euthyroid on Levothyroxine. Plan: Continue Levothyroxine. #GERD- on Pantoprazole. Plan: Continue Pantoprazole. #LUTS- urinary symptoms noted. Had seen Dr. Salinas (Urology) who tried him on a medication which was not successful. Some symptoms may be related to constipation. Plan: Will discuss with Dr. Salinas and consider alternative. As Ranked By This Provider Problem List: 1. Constipation 2. Hypothyroidism 3. Hypertension 4. Diabetes 5. Depression 6. Anxiety Miscellaneous Miscellaneous Documentation Attending Case Discussed With: Lou LOZANO,Anshul Primary Care Physician: Rosas Felder MD Patient sees these Specialists Dr. Salinas - Urology <Electronically signed by Kwabena Baker MD> 08/06/17 6357 Allergies: Coded Allergies: Penicillins (Severe, ANAPHYLAXIS 04/10/15) Hospital Course/TX Response: 08/06/2017: Impression and Plan: 72-year-old white male with history of depression and severe anxiety and severe OCD presents back to the hospital thinking that he is having side effects from the medications and accusing the medications of "fucking me up" The patient has been obsessed with serotonin syndrome for several months now because allegedly he was told he had a serotonin syndrome at one point most likely because he took Zoloft with Cymbalta at the same time His fear of this and or serotonin syndrome is understandable but seems to be extremely exaggerated and pretty much is resulting in his decision paralysis regarding medications - Include all active medical diagnosis that require tx DSM 5 Diagnosis(es): MDD, recurrent, severe OCD Generalized anxiety disorder Opioid use disorder, on maintenance minute medication Other specified personality disorder, 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 08/07/2017: Decrease Losartan Potassium to 25 mg every day DC lactulose DC melatonin DC Senokot Continue Zoloft 50 mg daily Continue Klonopin 1 mg at bedtime Continue methadone 85 mg every day Continue all other medications unchanged 08/08/2017: Dr. Mckeon (covering for weekend): Continue current medication regimen Start Tylenol 650 mg PO PRN for headaches 08/09/2017: Dr. Mckeon (covering for weekend): Continue current medication regimen 08/10/2017: D/C Losartan Potassium Increase Zoloft 50 mg daily Continue Klonopin 1 mg at bedtime Continue methadone 85 mg every day Continue other medications unchanged : Vital Signs: Temp: 97.1 Pulse: 79 B/P: 143/72 Mental Status Examination: Pt. continues to report feeling tired /lethargic. He shows constricted affect, he reports feeling slightly less depressed, denied wishing and denied thinking of suicide. He is alert and oriented to time, place, and person. He is calm, cooperative, and slightly less anxious. He exhibits normal psychomotor activity, no abnormal behaviors, and normal speech. denied thinking of homicide, denied hallucinations, denied feeling paranoid, no delusions during the interview, coherent, there is no thought disorder, less obsessive/ruminative, processes information appropriately, no evidence of short- term memory deficits during the interview. Assessment Update: Lino Carrera is a 72-year-old white male who was admitted to the hospital thinking that he is having side effects from the medications and accusing the medications of "fucking me up". The patient has been obsessed with serotonin syndrome for several months now because allegedly he was told he had a serotonin syndrome at one point most likely because he took Zoloft with Cymbalta at the same time. Since his admission on 08/05/2017, the patient has shown significant reduction in his anxiety level, mild improvement in his mood, and he has been all along denying thoughts of suicide. In my clinical opinion he is ready for discharge, and he does feel ready for discharge. There are no discharge barriers as far as risk to self or risk to others at this point; and there is no evidence of grave impairment in his judgment. 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 Treatment Plan: Discharge home with plan to continue with [facility] for his methadone maintenance and with a private psychiatrist and a private therapist for psychiatric/mental health follow ups Discharge HBIPS - Tobacco Use Treatment Offered Post DC Medications Offered: Not Applicable Post DC Tobacco Treatment Plan: Not Applicable - EtOH/Drug Use D/O Treatment Offered Post DC Medications Offered: Script Given-See Med List Post DC EtOH/SubAbuse TX Plan: Other SubAbuse/Dual Pgm Metabolic Screening - Screen if on a Neuroleptic Medication - Metabolic screening should include: - Blood Pressure, BMI, Glucose or Hgb A1c, & a - Lipid profile from within the past 365 days. Metabolic Screening Not Applicable, patient not on a neuroleptic. Discharge Instructions General Discharge Information Multiple Neuroleptics: Not Applicable Discharge Diet Diabetic Discharge Activity As Tolerated DC Disposition: Home Referrals Ordered Referrals Provider Referral 08/18/17 For Groups: [[facility]] Tung Jones LCSW [facility] [address] [place] [address] Appointment: 08/18/17 at 2pm with [facility] 08/25/17 248/[address] [place], [place] [id number] [facility] [address] [place] [address] Intake and medication evaluation appointment: Friday, August 25, [address] Jenkins Provider Referral 08/13/17 For Groups: [[facility]] [place] [phone] Patient will present to this clinic on August between 5am and 11:30am. Provider Referral For Groups: [Dr. Naheed Ramsey] Dr. Naheed Ramsey 2 [facility], [address] [phone] Patient will contact this doctor by phone regarding an appointment. Prescriptions Stop taking the following medications: Methadone HCl (Methadone HCl) 5 MG/5 ML SOLUTION ORAL DAILY Bupropion HCl (Wellbutrin XL) 150 MG TAB.ER.24H ORAL DAILY @8 AM Qty = 30 Sertraline HCl (Sertraline HCl) 25 MG TABLET ORAL DAILY Qty = 30 Naldemedine Tosylate (Symproic) 0.2 MG TABLET ORAL DAILY Qty = 30 Azilsartan Med/Chlorthalidone (Edarbyclor 40-25 MG Tablet) 40 MG-25 MG TABLET ORAL DAILY Qty = 30 Continue taking these medications: Diltiazem HCl (Diltiazem 24HR ER) 240 MG CAP.ER.24H 1 Capsule ORAL DAILY Qty = 90 Comments: Last Taken:08/11/17 Time: 075 Levothyroxine Sodium (Synthroid) 112 MCG TABLET 2 Tablet ORAL DAILY Qty = 180 Comments: Last Taken:08/11/17 Time:0649 Aspirin (Ecotrin*) 81 MG TABLET.DR Gutierrez Tablet ORAL DAILY Comments: Last Taken:08/11/17 Time:758 Pantoprazole Sodium (Pantoprazole Sodium) 40 MG TABLET.DR 1 Tablet ORAL DAILY Qty = 90 Comments: Last Taken:08/11/17 OMEPRAZOLE 40 MG ADMINISTERED Time:06 Polyethylene Glycol 3350 (Miralax) 17 GRAM/DOSE POWDER 17 Gram ORAL DAILY Qty = 30 Comments: Last Taken:08/10/17 Time:08 This prescription has been renewed Start taking the following new medications: Clonazepam (Klonopin) 1 MG TABLET 1 Milligram ORAL 2000 Qty = 15 No Refills Comments: Last Taken:08/10/17 Time:2040 Sertraline HCl (Sertraline HCl) 25 MG TABLET 75 Milligram ORAL DAILY Qty = 60 No Refills Comments: Last Taken:08/11/17 Time:758 Chlorthalidone (Chlorthalidone) 25 MG TABLET 25 Milligram ORAL DAILY Qty = 30 No Refills Comments: Last Taken:08/11/17 Time:758 Methadone Hydrochloride (Methadone HCl) 10 MG TABLET 8 Tablet ORAL DAILY Qty = 1 No Refills Comments: Last Taken:08/11/17 85MG ADMINISTERED Time:758 Sennosides (Senna) 8.6 MG TABLET 2 Tablet ORAL TWICE DAILY as needed for constipation Qty = 30 No Refills Instructions: don't use more than 3 days in a row Comments: Last Taken:NOT GIVEN IN HOSPITAL Time: Insulin NPL/Insulin Lispro (Humalog Mix 75-25 Kwikpen) 100 UNIT/ML (75-25) INSULN.PEN 42 Units Inject into fatty tissue TWICE DAILY Qty = 1 No Refills Comments: Last Taken:NOT USED IN HOSPITAL/RESUME AT HOME PER DR CHASE Time: Studies Pending at Discharge None Copies To: Roxy LOZANO,Naheed
[2017-08-11 12:20] VITALS: BP 117/62
[2017-08-11] MEDS ORDERED: HUMALOG MI100 UNIT/3 SC (14:52)
--- NOTE | 2017-08-11 17:32 | SOCIAL WORKER PROG NOTE PSYCH ---
Social Work Progress Note Progress Note 9am This travel writer contacted the office of Dr. Mederos ([phone]) and spoke with Neisha who confirmed receipt of the clinical requested yesterday, however, stated that Dr. Mederos is not accepted any referrals. This travel writer attempted to reach Dr. Ramsey ([phone]) again, however was unsuccessful in doing so. This travel writer spoke with Eric Suazo at [facility] inquiring about psychiatrists that they refer to. He also suggested Dr. Ramsey, however, stated that she is on vacation for two weeks. This travel writer spoke with Mely at [facility] to inform that the patient will discharge today and would like to return to their Methadone program. She instructed that the patient come to their facility on (closed tomorrow due to holiday), 08/13/17 for dosing. She stated that the patient would need his dose for tomorrow. Patient stated that he has a Methadone dose at home as he is given weekly doses. This travel writer and patient reviewed with Dr. Blake, who was agreeable with this plan. This travel writer discussed the barriers to referring the patient to a psychiatrist with Dr. Blake and Angeline Jules [facility]. Ultimately it was decided that the patient would be offered a bridge appointment through [facility] and can contact Dr. Ramsey if interested in scheduling future appointments. 2:30pm After completing all referrals and scheduling appointments, this travel writer met with patient. He was eager to discharge and stated that he felt safe to discharge today. He denied SI/HI/AH/VH and identified a safety plan of "I would go back to the ER." He also accepted the crisis numbers and warm lines upon discharge. He was agreeable to the plan of the bridge appointment with [facility] and contacting Dr. Ramsey. A general vm was left for Tung Jones, however due to her vm message being vague, no specific patient information was left. This travel writer and patient left a vm for Eric Alexander informing him of the plan and requested that he relay the message to Tung. (Eric returned the call confirming receipt of the vm and that he would relay it to Tung). While patient had a visiting nurse in the past, he stated that he no longer has this service, nor is he interested in a visiting nurse. Patient was informed of and accepted the following: - [facility], 08/18/17 at 2pm - [facility], Dr. Jenkins, 08/25/17 at 1pm (patient will call to cancel if he has an earlier appointment with Dr. Krueger) - [facility], 08/13/17 between 5am and 11:30am - Patient will call Dr. Ramsey in interest of scheduling an appointment Patient stated that he did not need any additional referrals or appointments. This discharge plan was reviewed with his , Alee Roach, who was in agreement with the plan and with the discharge today. Patient will call his daughter for a ride home from the hospital. Faxed Referral(s) 1 Referred To: Lea Jones LCSW/[facility] Transition of Care Documents sent: Health Summary Faxed to: Tung Gonzalez Fax #: [phone] Faxed by: Braulio Lazo LCSW Date faxed: 08/11/17 Time Faxed: [phone] Faxed Referral(s) 2 Referred To: [facility] Transition of Care Documents sent: Health Summary Faxed to: [facility]/Dr. Jenkins Fax #: [phone] Faxed by: Braulio Lazo LCSW Date faxed: 08/11/17 Time Faxed: [phone] Comment: Fax was sent 3 times as first two attempts did not send all pages ( 17) Faxed Referral(s) 3 Referred To: [facility] Transition of Care Documents sent: Health Summary Faxed to: [facility] Fax #: [phone] Faxed by: Braulio YANEZW Date faxed: 08/11/17 Time Faxed: [phone]
== END 2017-08-11 15:56 | DRG 881 ==
LOC: ERH 12:43 → CP SOUTH 16:14 → ERHI 16:14 → ENTRNSPT 17:29 → EDTRNSPTSTS 17:40 → EDTRNSPT 17:40 → CP SOUTH 17:45 → CMPTRNSPT 17:57 → ENRESERV 23:59 → CP SOUTH 08-11 15:56
PROVIDERS: Physician Assistant Medical
DX: F32.9 Major depressive disorder, single episode, unspecified (principal); F42.9 Obsessive-compulsive disorder, unspecified; F11.90 Opioid use, unspecified, uncomplicated
CPT/HCPCS: 36415; 80307; 81001; 97116-GO; 97161-GP; G0480